=== PATIENT | male | born 1980 | race Caucasian/White ===

== ENCOUNTER → 2021-07-02 10:08 | Outpatient (CLI) | payer BC, SELFPAY | PROVIDERS: PCP Family Medicine; Referring Provider Family Medicine; Visit Provider Family Medicine | DX: U07.1 COVID-19 (principal) | CPT/HCPCS: 87635; C9803; U0005; U0003 ==

== ENCOUNTER 2021-07-09 18:01 | Inpatient (IN) | payer BC, SELFPAY ==
[2021-07-09] VITALS (12 sets, daily range): BP systolic 119–162; BP diastolic 73–80; PULSE 81–94; RESP 12–38; TEMP 36.6–38.2; O2SAT 86–96; BMI 32.3; BMI 31.1
--- NOTE | 2021-07-09 18:17 | EKG12_ITS ---
Test Reason : SOB Blood Pressure : / mmHG Vent. Rate : 092 BPM Atrial Rate : 092 BPM P-R Int : 160 ms QRS Dur : 086 ms QT Int : 350 ms P-R-T Axes : 030 -24 026 degrees QTc Int : 432 ms Normal sinus rhythm Leftward axis Poor R wave progression Septal PR, age undetermined, cannot be excluded Confirmed by DRISS ALVARES, KARL ([id number]), editorial cartoonist MEGAN CISSE ([id number]) on 07/13/2021 11:50:19 AM Referred By: CONSTANTINO Confirmed By:KARL NAQVI MD
--- NOTE | 2021-07-09 18:25 | RAD_ITS ---
INDICATION: cough EXAMINATION/TECHNIQUE: X-RAY - XR Chest 1 View COMPARISON: None. FINDINGS: LINES/DEVICES: None. LUNGS: Moderately dense, partially complex fluid, patchy airspace opacities seen in the right, greater than left bilateral lungs with slight sparing of the lung apices. No associated abnormal interstitial pattern, pleural effusion or hilar lymphadenopathy. No pneumothorax. MEDIASTINUM AND CARDIOVASCULAR STRUCTURES: Cardiac silhouette not enlarged. Central airways and mediastinal contour are unremarkable. BONES AND SOFT TISSUES: Unremarkable. RAD/Chest 1 View (Portable) IMPRESSION: Bilateral patchy, somewhat confluent, moderately dense airspace disease, right greater than left as could be seen with Covid pneumonia. Electronically Signed: Aleks Evans DO at 19:55 EDT Tel , Service support ,
--- NOTE | 2021-07-09 18:25 | NURSING ---
NO OLD EKGS
[2021-07-09 18:30] LABS: Absolute Lymphocyte Count 0.73 X10^3/uL (0.83-4.51); Absolute Neutrophil Count 8.9 X10^3/uL (2.0-7.7); Basophil# 0.03 X10^3/uL; Basophil% 0.3 % (0-1); Hematocrit 33.4 % (40-54); Hemoglobin 11.3 g/dL (13.0-16.5); Lymphocyte # 0.73 X10^3/ul (0.83-4.51); Mean Corp Hgb Conc 33.8 g/dL (32-36); Mean Corpuscular Hgb 29.3 pg (27.0-32.0); Mean Corpuscular Volume 86.5 fL (80-94); Mean Platelet Vol. 10.7 fl (6.2-12.0); Monocyte# 0.59 X10^3/uL; Monocyte% 5.6 % (0-10); NRBC Flagged by Analyzer 0 % (0-5); Neutrophil # 8.88 X10^3/uL (2.7-7.7); Platelet Count 211 K/mm3 (150-450); RBC Distribution Width CV 12.2 % (11.6-14.6); RBC Distribution Width SD 39.1 fl (35.1-43.9); Red Blood Count 3.86 M/mm3 (4.6-6.2); White Blood Count 10.5 K/mm3 (4.4-11.0)
[2021-07-09 18:45] LABS: D-Dimer Quantitative (DVT/PE) 2.94 FEU/ug/m (0.27-0.49)
--- NOTE | 2021-07-09 18:49 | CT_ITS ---
We are attempting to reach an attending provider to discuss findings. An addendum with communication details will be sent when the communication is complete. STUDY: CTA CHEST REASON FOR EXAM: Male, 40 years old. PE RADIATION DOSAGE (If Supplied By Facility): CTDIvol = ( 12.595 ) mGy, DLP = ( 528.16 ) mGycm TECHNIQUE: The examination was performed with the intravenous administration of IV 100mL Isovue-370. Post-processing of the angiographic images was performed, with multiplanar reformation and 3D reconstruction. Individualized dose optimization techniques were used for this CT. COMPARISON: Chest x-ray from 07/09/2021. FINDINGS: Suboptimal density of contrast in the pulmonary arteries measuring [address] [place] as well as motion artifact precludes confident assessment of the distal segmental pulmonary arteries. This significantly increases the likelihood of a false positive exam. There are areas and some of the upper lobe segmental branches suspicious for emboli. There is no right heart strain with normal right to left ventricle ratio less than 1. Normal thoracic aorta and visualized great vessels. There is no demonstrated aortic dissection. Normal heart and pericardium. Prominent mediastinal lymph nodes involving the aortopulmonary window as well as paratracheal lymph nodes measuring up to 1 cm in short axis. No appreciable hilar lymphadenopathy. Normal visualized trachea and bronchi. Moderately confluent patchy airspace disease seen throughout the lungs with a peripheral and central distribution. Normal interstitial pattern. . No associated pleural effusion. No pneumothorax. Normal osseous structures. Normal visualized upper abdomen. CT/CTA Chest W/WO Contrast IMPRESSION: Very limited exam, significantly increasing possibility of false positive exam showing some areas, especially in the right left upper lobes, suspicious for emboli. No associated evidence of right heart strain. Confluent, patchy, moderately dense airspace disease compatible with Covid pneumonia. Numerous, prominent mediastinal lymph nodes without suspicious confluence of lymph nodes or mass lesion. Electronically Signed: Aleks Evans DO at 20:42 EDT Tel , Service support ,
[2021-07-09 18:54] LABS: Procalcitonin 2.06 ng/mL (0.00-0.09)
--- NOTE | 2021-07-09 18:57 | ED.VIS.DYS ---
HPI History of Present Illness Chief Complaint: Shortness of Breath Narrative Narrative: Patient presenting secondary to complications of coronavirus. Patient is about 9 days into his coronavirus infection, states that his symptoms have been gotten precipitously worse. States that he checked his pulse ox at home and it was in the 60s, EMS was contacted patient was brought to the emergency department. Patient does have an underlying history of hypertension and type 2 diabetes he denies any lung history is a non-smoker. Does report that he has some modest chest pain associated with this. He also has had some nausea and vomiting. Review of systems otherwise negative. [facility] Medical History (Updated 07/09/21 @ 21:[address] Aleks Watson MD) Diabetes Fusion of lumbar spine Hypertension Obesity Home Medications albuterol sulfate 1 - 2 puff INHALATION Q4H 07/09/21 [History Last Taken Unknown] dapagliflozin [Farxiga] 10 mg PO DAILY 07/09/21 [History Last Taken Unknown] insulin glargine [Lantus Solostar U-100 Insulin] 25 unit SUBCUT DAILY 07/09/21 [History Last Taken Unknown] lisinopril [Prinivil] 20 mg PO DAILY 07/09/21 [History Last Taken Unknown] metformin 850 mg PO TID 07/09/21 [History Last Taken Unknown] ondansetron HCl 4 mg PO Q8H PRN 07/09/21 [History Last Taken Unknown] pantoprazole 40 mg PO BID 07/09/21 [History Last Taken Unknown] Allergy/AdvReac Type Severity Reaction Status Date / Time No Known Allergies Allergy Verified 07/09/21 18:07 Family History (Updated 07/09/21 @ 19:[address] Brianna Edwards MD) Mother Diabetes Hypertension Father Diabetes Hypertension Surgical History (Updated 07/09/21 @ 19:[address] Brianna Edwards MD) S/P lumbar fusion Social History (Updated 07/09/21 @ 19:[address] Brianna Edwards MD) household members: spouse and family Smoking Status: Former smoker alcohol intake: never substance use type: does not use ROS ROS ED Constitutional Constitutional ED: Reports chills and fever(s) ENT ENT ED: Denies rhinorrhea Cardiovascular Cardiovascular: Reports chest pain Respiratory/Chest Respiratory/Chest: Reports dyspnea Gastrointestinal Gastrointestinal: Reports nausea and vomiting Genitourinary Genitourinary ED: Denies dysuria or hematuria Musculoskeletal Musculoskeletal: Denies back pain Integumentary Denies rash Neurologic Neurologic: Denies paresthesias or weakness Psychiatric Psychiatric: Denies depression Endocrine Endocrinology: Denies fatigue Allergic/Immunologic Allergic/Immunologic ED: Denies urticaria EXAM Physical Exam Const Vital Signs: 07/09/21 18:02 07/09/21 18:07 07/09/21 18:11 Temperature 100.7 F H 100.7 F H Temperature Source Temporal Temporal Pulse Rate 91 91 Respiratory Rate 24 H 24 H Respiratory Effort Short of Breath Labored Respiratory Depth Shallow Respiratory Pattern Tachypnea Blood Pressure 148/75 H 148/75 H Blood Pressure Mean 99 99 Pulse Ox 91 91 Oxygen Delivery Method Non-Rebreather Non-Rebreather Non-Rebreather Oxygen Flow Rate (L/min) 15 15 15 07/09/21 19:09 Temperature Temperature Source Pulse Rate 90 Respiratory Rate 38 H Respiratory Effort Respiratory Depth Respiratory Pattern Blood Pressure 156/73 H Blood Pressure Mean 100 Pulse Ox 95 Oxygen Delivery Method Non-Rebreather Oxygen Flow Rate (L/min) 15 Positive well nourished and well developed Constitutional Narrative: Patient is well-appearing, tachypneic, in mild respiratory discomfort General Appearance ED: well developed and NAD HEENT Reports moist mucous membranes Negative for trauma or tenderness Eyes EOMs intact bilaterally Neck no lymphadenopathy, supple and no JVD Chest Wall inspection of chest normal Resp clear to auscultation bilaterally Resp Narrative: Tachypnea with clear lung sounds no retractions or accessory muscle use Cardio regular rate, regular rhythm, no murmurs and peripheral pulses 2+ throughout GI normal to inspection, nondistended, normoactive bowel sounds, non-tender and no masses Palpation: soft Back/Spine normal to inspection Extremity normal to inspection General Extremety ED: Negative for tenderness Neuro oriented x3 and no sensory deficits noted Sensorium / Orientation: alert Motor Exam: strength 5/5 throughout Psych mental status grossly normal Skin no rashes or lesions noted MDM MDM MDM Narrative Medical decision making narrative: Patient presented secondary to complications of coronavirus. He was on a nonrebreather on arrival, he was placed on high flow nasal cannula. Work-up was obtained, patient was given Decadron in the emergency department. Patient was noted to have a neutrophilic predominance as well as an elevated procalcitonin. D-dimer was unfortunately found to be elevated, CT angiogram of the chest was ordered. Patient was also noted to have a anion gap acidosis as well as hyperglycemia added on a serum acetone on the patient. CT angiogram of the chest on my personal review does not show a large pulmonary emboli, but shows very severe bilateral lung disease consistent with patient's coronavirus. Patient will be admitted under the hospitalist. CT angiogram did demonstrate pulmonary emboli patient was given a dose of Lovenox. Lab Data Labs: Laboratory Results - last 24 hr 07/09/21 07/09/21 07/09/21 18:10 18:10 18:10 WBC 10.5 RBC 3.86 L Hgb 11.3 L Hct 33.4 L MCV 86.5 MCH 29.3 MCHC 33.8 RDW Std Deviation 39.1 RDW Coeff of Preet 12.2 Plt Count 211 MPV 10.7 Immature Gran % (Auto) 2.100 H Neut % (Auto) 85.0 H Lymph % (Auto) 7.0 L [place] % (Auto) 5.6 Eos % (Auto) 0.0 Baso % (Auto) 0.3 Absolute Neuts (auto) 8.9 H Absolute Lymphs (auto) 0.73 L Nucleated RBC % 0 D-Dimer Quant (PE/DVT) 2.94 H* Sodium 126 L Potassium 4.6 Chloride 92 L Carbon Dioxide 15.0 L Anion Gap 19 H BUN 34 H Creatinine 1.47 H Estim Creat Clear Calc 73.32 Est GFR (MDRD) Af Amer 68 Est GFR (MDRD) Non-Af 56 L BUN/Creatinine Ratio 23.1 H Glucose 395 H Lactic Acid Calcium 7.7 L Phosphorus Total Bilirubin 0.40 AST 35 ALT 32 Alkaline Phosphatase 67 Troponin I High Sens 60 C-React Prot Ext Range 206.00 H B-Natriuretic Peptide Total Protein 6.4 Albumin 2.0 L Globulin 4.4 H Albumin/Globulin Ratio 0.5 L Procalcitonin 07/09/21 07/09/21 07/09/21 18:10 18:10 18:10 WBC RBC Hgb Hct MCV MCH MCHC RDW Std Deviation RDW Coeff of Preet Plt Count MPV Immature Gran % (Auto) Neut % (Auto) Lymph % (Auto) [place] % (Auto) Eos % (Auto) Baso % (Auto) Absolute Neuts (auto) Absolute Lymphs (auto) Nucleated RBC % D-Dimer Quant (PE/DVT) Sodium Potassium Chloride Carbon Dioxide Anion Gap BUN Creatinine Estim Creat Clear Calc Est GFR (MDRD) Af Amer Est GFR (MDRD) Non-Af BUN/Creatinine Ratio Glucose Lactic Acid 2.3 H* Calcium Phosphorus Total Bilirubin AST ALT Alkaline Phosphatase Troponin I High Sens C-React Prot Ext Range B-Natriuretic Peptide 213.4 H Total Protein Albumin Globulin Albumin/Globulin Ratio Procalcitonin 2.06 H 07/09/21 18:10 WBC RBC Hgb Hct MCV MCH MCHC RDW Std Deviation RDW Coeff of Preet Plt Count MPV Immature Gran % (Auto) Neut % (Auto) Lymph % (Auto) [place] % (Auto) Eos % (Auto) Baso % (Auto) Absolute Neuts (auto) Absolute Lymphs (auto) Nucleated RBC % D-Dimer Quant (PE/DVT) Sodium Potassium Chloride Carbon Dioxide Anion Gap BUN Creatinine Estim Creat Clear Calc Est GFR (MDRD) Af Amer Est GFR (MDRD) Non-Af BUN/Creatinine Ratio Glucose Lactic Acid Calcium Phosphorus 3.7 Total Bilirubin AST ALT Alkaline Phosphatase Troponin I High Sens C-React Prot Ext Range B-Natriuretic Peptide Total Protein Albumin Globulin Albumin/Globulin Ratio Procalcitonin Radiography Chest X-Ray - ED: 1 View, Right Infiltrate and Left Infiltrate Diagnostic Testing: Radiology Impression Chest X-Ray 07/09/21 18:25 IMPRESSION: Bilateral patchy, somewhat confluent, moderately dense airspace disease, right greater than left as could be seen with Covid pneumonia. Electronically Signed: Aleks Evans DO at 19:55 EDT Tel , Service support , Chest CTA 07/09/21 18:49 IMPRESSION: Very limited exam, significantly increasing possibility of false positive exam showing some areas, especially in the right left upper lobes, suspicious for emboli. No associated evidence of right heart strain. Confluent, patchy, moderately dense airspace disease compatible with Covid pneumonia. Numerous, prominent mediastinal lymph nodes without suspicious confluence of lymph nodes or mass lesion. Electronically Signed: Aleks Evans DO at 20:42 EDT Tel , Service support , ADDENDUM: 07/09/212053 IMPRESSION: Very limited exam, significantly increasing possibility of false positive exam showing some areas, especially in the right left upper lobes, suspicious for emboli. No associated evidence of right heart strain. Confluent, patchy, moderately dense airspace disease compatible with Covid pneumonia. Numerous, prominent mediastinal lymph nodes without suspicious confluence of lymph nodes or mass lesion. N.B. : The above Results were Read Back by Aleks Evans DO to Dr. Aleks Watson MD, and understanding confirmed on 07/09/2021 20:47:15 (ET). Electronically Signed: Aleks Evans DO at 20:42 EDT Tel , Service support , Critical Care Time Critical care time (excluding procedures): 30-74 minutes (51), Including time spent:, Discussing w/Patient &/or Family/Preparation Supervisor [place], Discussing w/Consultants, Arranging Admission or Transfer and Performing Direct Patient Care at Bedside Discharge Plan Dx/Rx/DC Orders Clinical Impression: COVID-19, Respiratory failure, Pulmonary emboli Disposition Disposition: Acute Care Hospital [facility] Discharge Date/Time: 07/09/21 21:15
[2021-07-09] MEDS: dexAMETHasone 4 MG/ML Vial 6 MG IV (19:07)
[2021-07-09 19:16] LABS: ALB/GLOB Ratio 0.5 RATIO (0.9-2.4); AST(SGOT) 35 U/L (15-37); Alanine Aminotransfer ALT/SGPT 32 U/L (16-61); Alkaline Phosphatase 67 U/L (45-117); Anion Gap 19 (5-15); BUN 34 mg/dL (7-18); BUN/Creat Ratio 23.1 RATIO (10-20); Calcium,Total 7.7 mg/dL (8.5-10.1); Chloride 92 mmol/L (98-107); Creatinine, Serum 1.47 mg/dL (0.70-1.30); EST Glomerular Filtration Rate 56 mL/min (>60); Est Glom Filt Rate - Afr Amer 68 mL/min (>60); Estimated Creatinine Clearance 73.32 ml/min; Globulin 4.4 g/dL (2.2-4.2); Glucose 395 mg/dL (74-106); Potassium 4.6 mmol/L (3.5-5.1); Protein, Total 6.4 g/dL (6.4-8.2); Sodium Level 126 mmol/L (136-145); Troponin-I HS 60 pg/mL (3.0-78.0)
[2021-07-09 19:17] LABS: Lactic Acid 2.3 mmol/L (0.4-1.9)
--- NOTE | 2021-07-09 19:23 | PCM.HP.STD ---
HPI - General General Date of Admission: 07/09/21 Date of Service: 07/09/21 Chief Complaint: Dyspnea, cough, worsening with hypoxia HPI Narrative The patient is a 40 y/o F w/ PMHx: Obesity, HTN, Diabetes mellitus type II who presents to the [facility] ED on 07/09/21 with history of onset Covid type symptoms approximately 9-day prior including fever, chills, headache, dry throat but not specifically sore, nausea, emesis, diarrhea, cramping abdominal discomfort, cough and dyspnea, alteration to sense of taste and smell with initial Covid testing at [facility] lab on 07/02/2021 noted to be positive with continued worsening status especially over the last 24 to 48 hours with home oxygenation assessment noted to be 60% prompting ED evaluation. His and his children are all sick as well and this was discussed at length and concerning symptoms and signs were relayed to the patient and if these were present his family was encouraged also to seek medical evaluation immediately. Upon presentation patient was in evident respiratory distress per discussion with ED staff and physician. Work-up in the ED included T 100.7, heart rate 91, BP 140/75, respiratory rate of 24-38, initially 91% on a nonrebreather 15 L, CBC with WC 10.5, hemoglobin 11.3, platelet 211 with increased immature granulocytes with left shift and lymphopenia, D-dimer 2.94, CMP with sodium 126, chloride 92, carbon oxide 15, anion gap 19, BUN/creatinine 37/1.47, glucose 395, lactic acid 2.3, high-sensitivity troponin 60, CRP 206, procalcitonin 2.06, pending acetone level, chest x-ray with significant bilateral peripheral infiltrates with final read pending, CTPA on preliminary evaluation with no obvious pulmonary embolism however significant bilateral peripheral infiltrates diffuse with final read pending. In the ED patient administered IV Decadron. Discussed patient current labs with ED physician and acetone as noted will be added and pending as patient could be in DKA in addition. FORMERLY [facility], [facility]–1983 Medical History (Updated 07/09/21 @ 19:[address] Brianna Edwards MD) Diabetes Fusion of lumbar spine Hypertension Obesity Home Medications albuterol sulfate 1 - 2 puff INHALATION Q4H 07/09/21 [History Last Taken Unknown] dapagliflozin [Farxiga] 10 mg PO DAILY 07/09/21 [History Last Taken Unknown] insulin glargine [Lantus Solostar U-100 Insulin] 25 unit SUBCUT DAILY 07/09/21 [History Last Taken Unknown] lisinopril [Prinivil] 20 mg PO DAILY 07/09/21 [History Last Taken Unknown] metformin 850 mg PO TID 07/09/21 [History Last Taken Unknown] ondansetron HCl 4 mg PO Q8H PRN 07/09/21 [History Last Taken Unknown] pantoprazole 40 mg PO BID 07/09/21 [History Last Taken Unknown] Allergy/AdvReac Type Severity Reaction Status Date / Time No Known Allergies Allergy Verified 07/09/21 18:07 Family History (Updated 07/09/21 @ 19:[address] Brianna Edwards MD) Mother Diabetes Hypertension Father Diabetes Hypertension Surgical History (Updated 07/09/21 @ 19:[address] Brianna Edwards MD) S/P lumbar fusion Social History (Updated 07/09/21 @ 19:[address] Brianna Edwards MD) household members: spouse and family Smoking Status: Former smoker alcohol intake: never substance use type: does not use ROS ROS Narrative Admission Review of Systems: CONSTITUTIONAL: No weight loss, + fever, chills, weakness or fatigue. HEENT: + ANGULO, dry throat. Eyes: No visual loss, blurred vision, double vision or yellow sclerae. Ears, Nose, Throat: No hearing loss, sneezing. SKIN: No rash or itching, lesions, wounds. CARDIOVASCULAR: No chest pain, chest pressure or chest discomfort, palpitations, edema, orthopnea, syncopal events. RESPIRATORY: + shortness of breath, cough, No marked sputum, wheezing, hemoptysis. GASTROINTESTINAL: + anorexia, nausea, vomiting, diarrhea, abdominal pain, No melena, BRBPR. GENITOURINARY: No dysuria, frequency, urgency or retention. NEUROLOGICAL: + headache, No dizziness, syncope, paralysis, ataxia, numbness or tingling in the extremities, focal weakness, change in bowel or bladder control, seizure. MUSCULOSKELETAL: + muscle, back pain, joint pain or stiffness. HEMATOLOGIC: No anemia, bleeding or bruising. LYMPHATICS: No enlarged nodes. No history of splenectomy. PSYCHIATRIC: No history of depression or anxiety. ENDOCRINOLOGIC: No reports of sweating, cold or heat intolerance. No polyuria or polydipsia. ALLERGIES: No history of asthma, hives, eczema or rhinitis. Vital Signs Vital Signs Vital Signs: 07/09/21 18:02 07/09/21 18:07 07/09/21 18:11 Temperature 100.7 F H 100.7 F H Temperature Source Temporal Temporal Pulse Rate 91 91 Respiratory Rate 24 H 24 H Respiratory Effort Short of Breath Labored Respiratory Depth Shallow Respiratory Pattern Tachypnea Blood Pressure 148/75 H 148/75 H Blood Pressure Mean 99 99 Pulse Ox 91 91 Oxygen Delivery Method Non-Rebreather Non-Rebreather Non-Rebreather Oxygen Flow Rate (L/min) 15 15 15 07/09/21 19:09 Temperature Temperature Source Pulse Rate 90 Respiratory Rate 38 H Respiratory Effort Respiratory Depth Respiratory Pattern Blood Pressure 156/73 H Blood Pressure Mean 100 Pulse Ox 95 Oxygen Delivery Method Non-Rebreather Oxygen Flow Rate (L/min) 15 Weight Weight: 238 lb 5.115 oz Body Mass Index (BMI) 32.3 Physical Exam Narrative Physical Examination: General: Awake, alert, oriented x 3 and cooperative, seated upright in the ED bed, evident respiratory distress, ill-appearing. Skin: Normal color, normal turgor, no icterus, no cyanosis. HEENT: AT/NC, EOMI, PERRLA, dry MM, no carotid bruits or JVD noted. Lungs: Diffusely diminished, decreased effort secondary to coughing and discomfort with increased deep breath, increased respiratory rate and accessory muscle usage, evident respiratory distress, no rales, ronchi or wheezing. Heart: Tachycardic with regular rhythm; no gallop, rub audible. Abdomen: Soft, obese, NTTP, ND, distant mildly hyperactive BS, no obvious evidence of HSM. Extremities: No cyanosis, clubbing, or edema. Neurological: Patient awake, alert, oriented as noted, cognitive function intact; pupils equally reactive to light and accommodation, cranial nerves II-XII grossly normal, moving all 4 extremities, no focal deficits, strength severely global decrease secondary to acute presentation. Psychiatric: Affect appears fatigued, ill-appearing, evident respiratory distress as noted, no acute evidence of depressive or anxiety feelings. Results Lab / Micro Data Result Diagrams: 07/09/21 18:10 07/09/21 18:10 Labs: Laboratory Results - last 24 hr 07/09/21 18:10: WBC 10.5, RBC 3.86 L, Hgb 11.3 L, Hct 33.4 L, MCV 86.5, MCH 29.3, MCHC 33.8, RDW Std Deviation 39.1, RDW Coeff of Preet 12.2, Plt Count 211, MPV 10.7, Immature Gran % (Auto) 2.100 H, Neut % (Auto) 85.0 H, Lymph % (Auto) 7.0 L, Mclennan % (Auto) 5.6, Eos % (Auto) 0.0, Baso % (Auto) 0.3, Absolute Neuts (auto) 8.9 H, Absolute Lymphs (auto) 0.73 L, Nucleated RBC % 0 07/09/21 18:10: D-Dimer Quant (PE/DVT) 2.94 H* 07/09/21 18:10: Sodium 126 L, Potassium 4.6, Chloride 92 L, Carbon Dioxide 15.0 L, Anion Gap 19 H, BUN 34 H, Creatinine 1.47 H, Estim Creat Clear Calc 73.32, Est GFR (MDRD) Af Amer 68, Est GFR (MDRD) Non-Af 56 L, BUN/Creatinine Ratio 23.1 H, Glucose 395 H, Calcium 7.7 L, Total Bilirubin 0.40, AST 35, ALT 32, Alkaline Phosphatase 67, Troponin I High Sens 60, C-React Prot Ext Range 206.00 H, Total Protein 6.4, Albumin 2.0 L, Globulin 4.4 H, Albumin/Globulin Ratio 0.5 L 07/09/21 18:10: Lactic Acid 2.3 H* 07/09/21 18:10: Procalcitonin 2.06 H Assessment & Plan Assessment/Plan (1) Respiratory failure: QUALIFIERS: Chronicity: acute Respiratory failure complication: hypoxia Qualified Code(s): J96.01 - Acute respiratory failure with hypoxia (2) COVID-19: PLAN: The patient is a 40 y/o F w/ PMHx: Obesity, HTN, Diabetes mellitus type II who presents to the [facility] ED on 07/09/21 with history of onset Covid type symptoms approximately 9-day prior including fever, chills, headache, dry throat but not specifically sore, nausea, emesis, diarrhea, cramping abdominal discomfort, cough and dyspnea, alteration to sense of taste and smell with initial Covid testing at [facility] lab on 07/02/2021 noted to be positive with continued worsening status especially over the last 24 to 48 hours with home oxygenation assessment noted to be 60% prompting ED evaluation. 1. Acute Hypoxic Respiratory Failure secondary to Acute Bilateral Pneumonia secondary to Acute Viral Syndrome, COVID-19: Will admit to the ICU, maintain on Covid precautions, currently on 15 L with likely transition to air Vo and possibly BiPAP, given appearance of chest x-ray and CTPA do expect potential need for intubation in a short time line, junior copywriter consulted and updated on patient current status, PRN albuterol, HOB, IS parameters w/ pending sputum cultures, respiratory viral panel and urine antigens, D-dimer elevated with pending final read on CTPA, procalcitonin of note also obtained in the ED and significantly elevated therefore until final read and given severity of presentation will initiate IV vancomycin and Zosyn with MRSA screen with plan de-escalation if MRSA screen negative and will defer discontinuation to pulmonary/critical care given read is currently pending, will additionally obtain CRP, CPK, Ferritin, LDH, trop and BNP, continue supportive care including q 2 hour turning including prone given no prone bed availability and judicious hydration, closely monitor for worsening status for ARDS and multiorgan failure, will continue IV decadron x 10 doses, given presentation will also initiate IV remdesivir but defer to discretion of Infectious disease. 2. Diabetes mellitus type II with Hyperglycemia, Noted elevated AG, awaiting acetone, no UA performed in the ED, Suspect DKA: Patient recently off his medications for at least 1 week, no oral intake and noted the hold secondary to significant drop with taking his insulin, discussed presentation with ED physician and acetone level has been requested and if notable will need to be initiated on insulin drip, transition to n.p.o. status with serial BMPs and increased hydration although judicious given #1. Hemoglobin A1c requested. Mag and Phos requested. 3. Acute hyponatremia: Suspect primarily associated #2 although also with #1 and altered with correction given the circumstances, judiciously hydrating, awaiting acetone is noted and suspect may be in DKA, will continue treatment as noted #1 and #2, trend serial labs. 4. Suspected Acute kidney injury: Secondary to acute presentation #1, #2, admission BUN/Cr 34/1.47, unclear baseline but given presentation do suspect acute injury, judiciously hydrating given presentation as noted above, trend labs as noted. 5. Lactic acidosis: Likely associated with #1 and #2 is noted, admission lactic acid 2.3, judiciously hydrating, trend per facility protocol. 6. Hypertension: We will hold patient lisinopril given renal function, resume once appropriate, PRN hydralazine. 7. Obesity: Weight loss and lifestyle changes encouraged. 8. GERD: We will continue patient on PPI. 9. DVT prophylaxis: SCDs, Lovenox. 10. CODE status: Patient does not have healthcare peritoneal living will, given acute presentation as noted above, discussed CODE status at length including difference between FULL code, DNR-CCA and DNR-CC status. Following discussions about the differences in these status, requested Full Code, amenable to Airvo and BIPAP also. Advanced Care Planning Face to Face Time: 16 minutes. Charges/Coding Visit Charges Inpatient E&M: 31440 Init Hosp L3 Procedures Hospitalists Procedures: 10646 Advncd Care Plan 30 Min
[2021-07-09 21:00] LABS: Phosphorus 3.7 mg/dL (2.5-4.9)
[2021-07-09] MEDS: Enoxaparin 120 MG/0.8 ML Syringe SC (21:12)
[2021-07-09 21:22] LABS: BNP,B-Type NATRIURETIC PEPTIDE 213.4 pg/mL (0-100)
[2021-07-09 21:37] LABS: Ferritin 1012 ng/mL (26-388); LDH 510 U/L (87-241); Magnesium 2.2 mg/dL (1.6-2.6); Troponin-I HS 71 pg/mL (3.0-78.0)
[2021-07-09 22:25] LABS: Reflex Lactate? Y
[2021-07-09] MEDS: Insulin Lispro 100 UNIT/ML INSULN.PEN SC (23:15)
[2021-07-09] MEDS: Pantoprazole Sodium 40 MG Tablet PO (23:15)
[2021-07-09] MEDS: 0.9% Normal Saline 1,000 ML 100 ML IV (23:15)
[2021-07-10] VITALS (31 sets, daily range): BP systolic 127–155; BP diastolic 71–87; PULSE 62–88; RESP 12–36; TEMP 36.1–36.8; O2SAT 84–98
[2021-07-10 00:11] LABS: Bedside Glucose 415 mg/dL (70-110)
[2021-07-10 00:11] LABS: M R Staph aureus DNA By PCR Negative (Negative); Probe Check PASS; Specimen Processing Control PASS
[2021-07-10 01:19] LABS: Mucous, Urine 0 SEEN /hpf (<or=2+); Squamous Epithelial Cells - UA 0 SEEN /hpf (0-5); White Blood Cells 0 SEEN /hpf (0-5)
[2021-07-10 01:21] LABS: Color, Urine Yellow (Yellow); Glucose, Dipstick 1000 mg/dl (Normal); Leukocyte Esterase-Dipstick Negative /ul (Negative); Nitrite-Dipstick Negative (Negative); Occult Blood-Urine 50 /ul (Negative); Protein-Dipstick 100 mg/dl (Negative); Specific Gravity, Urine 1.015 (1.002-1.030); Urine Bilirubin Dipstick Negative (Negative); Urine Clarity Clear (Clear); Urine Urobilinogen Normal (Normal)
[2021-07-10 01:22] LABS: Ketone-Dipstick 150 mg/dl (Negative)
[2021-07-10 01:51] LABS: Bacteria 1+ /hpf (None Seen); Red Blood Cells-Urine 0-5 SEEN /hpf (0-5)
--- NOTE | 2021-07-10 03:23 | PCM.RX.CS ---
Consult Pharmacy has been consulted to manage selected antiobiotic: Vancomycin Type of Consult: New start Suspected Infection: Pneumonia Labs: Sodium 126 mmol/L (136-145) L 07/09/21 18:10 Potassium 4.6 mmol/L (3.5-5.1) 07/09/21 18:10 Chloride 92 mmol/L (98-107) L 07/09/21 18:10 Carbon Dioxide 15.0 mmol/L (21.0-32.0) L 07/09/21 18:10 Anion Gap 19 (5-15) H 07/09/21 18:10 BUN 34 mg/dL (7-18) H 07/09/21 18:10 Creatinine 1.47 mg/dL (0.70-1.30) H 07/09/21 18:10 Est GFR (MDRD) Af Amer 68 mL/min (>60) 07/09/21 18:10 Est GFR (MDRD) Non-Af 56 mL/min (>60) L 07/09/21 18:10 BUN/Creatinine Ratio 23.1 RATIO (10-20) H 07/09/21 18:10 Glucose 395 mg/dL (74-106) H 07/09/21 18:10 Microbiology: Microbiology 07/09/21 21:50 Mucosa - Nose Respiratory Panel (PCR) - Final 07/09/21 19:47 Urine, Clean Catch Streptococcus pneumoniae Antigen (M - Final 07/09/21 19:47 Urine, Random Legionella Antigen - Final Weight used for dosin.1 kg Estimated Creatinine Clearance: 83.3 Goal Trough: 15-20 mcg/mL Pharmacy Plan for Drug Dosing: Pharmacy Service will continue to monitor and adjust dosing as required. Medications Vancomycin HCl 1,750 mg/ (Sodium Chloride) 535 mls @ 250 mls/hr IV Q12H SHANNAN Discontinued Medications Vancomycin HCl 2,000 mg/ (Sodium Chloride) 540 mls @ 250 mls/hr IV X1 ONE Stop: 07/10/21 00:09 Last Admin: 07/10/21 02:17 Dose: 250 mls/hr Documented by: Follow-Up Labs: Trough Vancomycin Labs to be done on [date and time ordered]: 07/11 @ 7212
[2021-07-10] MEDS: 0.9% Saline Lock 10 ML Syringe IV ×2 (04:25→10:44)
[2021-07-10 05:23] LABS: Absolute Lymphocyte Count 0.65 X10^3/uL (0.83-4.51); Absolute Neutrophil Count 9.4 X10^3/uL (2.0-7.7); Basophil# 0.03 X10^3/uL; Basophil% 0.3 % (0-1); Eosinophil# 0.13 X10^3/uL; Eosinophils% 1.2 % (0-5); Hematocrit 32.3 % (40-54); Hemoglobin 10.9 g/dL (13.0-16.5); Lymphocyte # 0.65 X10^3/ul (0.83-4.51); Lymphocyte % 5.8 % (19-41); Mean Corp Hgb Conc 33.7 g/dL (32-36); Mean Corpuscular Hgb 29.5 pg (27.0-32.0); Mean Corpuscular Volume 87.5 fL (80-94); Mean Platelet Vol. 11.2 fl (6.2-12.0); Monocyte# 0.49 X10^3/uL; Monocyte% 4.4 % (0-10); NRBC Flagged by Analyzer 0 % (0-5); Neutrophil # 9.39 X10^3/uL (2.7-7.7); Neutrophil % 84.1 % (47-70); Platelet Count 250 K/mm3 (150-450); RBC Distribution Width CV 12.3 % (11.6-14.6); RBC Distribution Width SD 39.5 fl (35.1-43.9); Red Blood Count 3.69 M/mm3 (4.6-6.2); White Blood Count 11.2 K/mm3 (4.4-11.0)
[2021-07-10 05:40] LABS: ALB/GLOB Ratio 0.4 RATIO (0.9-2.4); AST(SGOT) 31 U/L (15-37); Alanine Aminotransfer ALT/SGPT 31 U/L (16-61); Albumin, Serum 1.9 g/dL (3.2-5.0); Alkaline Phosphatase 64 U/L (45-117); Anion Gap 16 (5-15); BUN 38 mg/dL (7-18); BUN/Creat Ratio 24.8 RATIO (10-20); Chloride 95 mmol/L (98-107); Creatinine, Serum 1.53 mg/dL (0.70-1.30); EST Glomerular Filtration Rate 54 mL/min (>60); Est Glom Filt Rate - Afr Amer 65 mL/min (>60); Estimated Creatinine Clearance 70.44 ml/min; Globulin 4.4 g/dL (2.2-4.2); Glucose 446 mg/dL (74-106); Potassium 4.8 mmol/L (3.5-5.1); Protein, Total 6.3 g/dL (6.4-8.2); Sodium Level 128 mmol/L (136-145)
--- NOTE | 2021-07-10 07:11 | EX.PCM.CONCC ---
Assessment & Plan Assessment/Plan (1) COVID-19: (2) Respiratory failure: QUALIFIERS: Chronicity: acute Respiratory failure complication: hypoxia Qualified Code(s): J96.01 - Acute respiratory failure with hypoxia PLAN: RECOMMENDATIONS: 1. Continue BiPAP therapy and wean FiO2 to maintain oxygen saturations at or above 90%. 2. Continue remdesivir to complete 5-day treatment course. 3. Continue Decadron to complete 10-day treatment course. 4. Obtain infectious diseases consultation, re: KELY inhibitor therapy. 5. Additional fluid resuscitation. 6. Start insulin infusion with management per DKA protocol. 7. Increase Lovenox to therapeutic dose range. IMPRESSIONS: 1. Acute hypoxemic respiratory failure secondary to COVID-19 pneumonia The patient presented to the hospital with approximately 10 days of progressive Covid symptoms, having tested positive on the second. Plan to continue current supportive measures including noninvasive positive pressure ventilatory support. FiO2 will be weaned to maintain oxygen saturations at or above 90%. The patient will be continued on remdesivir as ordered. Liver and renal function will be monitored. The patient will complete a 10-day course of Decadron. Infectious diseases consultation has been placed, re: possible initiation of KELY inhibitor therapy. Given that the patient presented with an elevated D-dimer and suboptimal CTA chest, therapeutic Lovenox will be initiated and continued. Periodic use of IV Lasix can be utilized to maintain euvolemic state. 2. Diabetic ketoacidosis Continue supplemental IV fluid hydration. Initiate continuous insulin infusion until anion gap has been closed x2. 3. Acute kidney injury Most likely prerenal in etiology. Anticipate improvement with volume expansion. Continue to monitor urine output for now. No current indication for renal replacement therapy. 4. Obesity/hypertension/GERD Complicates care, management, recovery and prognosis. Continue home medications as indicated. TIME: 38 minutes of critical care time, independent of procedures, was spent addressing the patient's acute hypoxemic respiratory failure secondary to COVID-19 pneumonia, DKA, acute kidney injury, review of all data and collaboration with the care team. ([id number]) HPI Consult Data Date of Consult: 07/10/21 HPI Narrative Reason for Consultation: Acute hypoxemic respiratory failure secondary to COVID-19 pneumonia HPI Narrative: The patient is a 40-year-old male, with a history as outlined below, who presented to the emergency department on Stephanie 9 with complaints of fevers, chills, shortness of breath and hypoxemia. The patient's symptoms have been present since the beginning of July. Coronavirus PCR testing was performed on July 02 and found to be positive. The patient does report that his was recently ill and diagnosed with coronavirus. His children have also been ill as well. On presentation to the emergency department, the patient was noted to be afebrile and hemodynamically stable. He was, nevertheless, notably tachypneic and hypoxemic. Initial laboratory evaluation revealed normocytic anemia without leukocytosis. Coagulation profile revealed an elevated D-dimer to 2.94. Chemistry profile was notable for a sodium of 126, chloride of 92, bicarbonate of 15, anion gap of 19 and creatinine of 1.47. Glucose was elevated at 395. Lactate was elevated to 2.3. Liver function was within normal limits. Procalcitonin was noted to be 2.06. Urine analysis was negative for nitrites and leukocyte esterase. Small serum acetone level was noted. CTA chest was suboptimal for the evaluation of pulmonary emboli. Bilateral airspace disease was noted. The patient was placed on supplemental IV fluid hydration, remdesivir, empiric antimicrobials, Decadron and Lovenox. The patient was ultimately started on BiPAP and admitted to the medical intensive care unit for further management. [facility] Medical History Diabetes Fusion of lumbar spine Hypertension Obesity Home Medications albuterol sulfate 1 - 2 puff INHALATION Q4H 07/09/21 [History Last Taken Unknown] dapagliflozin [Farxiga] 10 mg PO DAILY 07/09/21 [History Last Taken Unknown] insulin glargine [Lantus Solostar U-100 Insulin] 25 unit SUBCUT DAILY 07/09/21 [History Last Taken Unknown] lisinopril [Prinivil] 20 mg PO DAILY 07/09/21 [History Last Taken Unknown] metformin 850 mg PO TID 07/09/21 [History Last Taken Unknown] ondansetron HCl 4 mg PO Q8H PRN 07/09/21 [History Last Taken Unknown] pantoprazole 40 mg PO BID 07/09/21 [History Last Taken Unknown] Allergy/AdvReac Type Severity Reaction Status Date / Time No Known Allergies Allergy Verified 07/09/21 18:07 Family History (Updated 07/09/21 @ 19:[address] Brianna Edwards MD) Mother Diabetes Hypertension Father Diabetes Hypertension Surgical History S/P lumbar fusion Social History (Updated 07/09/21 @ 19:[address] Brianna Edwards MD) household members: spouse and family Smoking Status: Former smoker alcohol intake: never substance use type: does not use ROS Constitutional Constitutional: Reports fatigue and malaise Eyes Eyes: Denies blurry vision or change in vision ENT HEENT: Reports headache(s); Denies dysphagia, loss taste/smell or nasal congestion Cardiovascular Cardiovascular: Reports dyspnea; Denies chest pain Respiratory/Chest Respiratory/Chest: Reports cough and dyspnea; Denies chest tightness Gastrointestinal Gastrointestinal: Denies abdominal pain, diarrhea, nausea or vomiting Genitourinary Genitourinary: Denies difficulty urinating Musculoskeletal Musculoskeletal: Denies arthralgias, back pain or joint pain Integumentary Integumentary: Denies lesions, rash or skin ulcer Neurologic Neurologic: Denies abnormal gait or abnormal speech Psychiatric Psychiatric: Denies anxiety, depression or hallucinations Endocrine Endocrinology: Reports fatigue Hematologic/Lymphatic Hematologic/Lymphatic: Denies easy bleeding or easy bruising Physical Exam Const alert General Appearance: cooperative, ill appearing and on BiPAP Nutritional Appearance: obese HEENT normocephalic and head/scalp atraumatic Eyes PERRL and EOMs intact bilaterally Neck supple General: trachea midline Resp Effort and Inspection: tachypneic; Negative for uses accessory muscles Auscultation: diminished lung sounds; Negative for rales, rhonchi or wheezes Cardio S1 normal heart sound and S2 normal heart sound Rate: tachycardic GI normal to inspection, nondistended, normoactive bowel sounds Extremity no clubbing, cyanosis or edema Skin no rashes or lesions noted Neuro moves all extremities and no focal motor deficits Psych cooperative and affect normal Lab / Micro Data Result Diagrams: 07/10/21 05:10 07/10/21 05:10 Labs: Laboratory Results - last 24 hr 07/09/21 18:10: WBC 10.5, RBC 3.86 L, Hgb 11.3 L, Hct 33.4 L, MCV 86.5, MCH 29.3, MCHC 33.8, RDW Std Deviation 39.1, RDW Coeff of Preet 12.2, Plt Count 211, MPV 10.7, Immature Gran % (Auto) 2.100 H, Neut % (Auto) 85.0 H, Lymph % (Auto) 7.0 L, [place] % (Auto) 5.6, Eos % (Auto) 0.0, Baso % (Auto) 0.3, Absolute Neuts (auto) 8.9 H, Absolute Lymphs (auto) 0.73 L, Nucleated RBC % 0 07/09/21 18:10: D-Dimer Quant (PE/DVT) 2.94 H* 07/09/21 18:10: Sodium 126 L, Potassium 4.6, Chloride 92 L, Carbon Dioxide 15.0 L, Anion Gap 19 H, BUN 34 H, Creatinine 1.47 H, Estim Creat Clear Calc 73.32, Est GFR (MDRD) Af Amer 68, Est GFR (MDRD) Non-Af 56 L, BUN/Creatinine Ratio 23.1 H, Glucose 395 H, Calcium 7.7 L, Total Bilirubin 0.40, AST 35, ALT 32, Alkaline Phosphatase 67, Troponin I High Sens 60, C-React Prot Ext Range 206.00 H, Total Protein 6.4, Albumin 2.0 L, Globulin 4.4 H, Albumin/Globulin Ratio 0.5 L 07/09/21 18:10: Lactic Acid 2.3 H* 07/09/21 18:10: Procalcitonin 2.06 H 07/09/21 18:10: B-Natriuretic Peptide 213.4 H 07/09/21 18:10: Acetone Level SMALL H 07/09/21 18:10: Phosphorus 3.7 07/09/21 20:55: Magnesium 2.2, Ferritin 1012 H, Lactate Dehydrogenase 510 H, Troponin I High Sens 71, C-React Prot Ext Range 211.00 H 07/09/21 21:50: MRSA (PCR) Negative 07/09/21 22:52: POC Glucose 415 H 07/09/21 23:05: Lactic Acid 1.0 07/10/21 01:10: Urine Color Yellow, Urine Clarity Clear, Urine pH 5.0, Ur Specific [place] 1.015, Urine Protein 100 H, Urine Glucose (UA) 1000 H, Urine Ketones 150 A*, Urine Occult Blood 50 H, Urine Nitrite Negative, Urine Bilirubin Negative, Urine Urobilinogen Normal, Ur Leukocyte Esterase Negative, Urine RBC 0-5 SEEN, Urine WBC 0 SEEN, Ur Squamous Epith Cells 0 SEEN, Urine Bacteria 1+, Urine Mucus 0 SEEN 07/10/21 05:10: WBC 11.2 H, RBC 3.69 L, Hgb 10.9 L, Hct 32.3 L, MCV 87.5, MCH 29.5, MCHC 33.7, RDW Std Deviation 39.5, RDW Coeff of Preet 12.3, Plt Count 250, MPV 11.2, Immature Gran % (Auto) 4.200 H, Neut % (Auto) 84.1 H, Lymph % (Auto) 5.8 L, [place] % (Auto) 4.4, Eos % (Auto) 1.2, Baso % (Auto) 0.3, Absolute Neuts (auto) 9.4 H, Absolute Lymphs (auto) 0.65 L, Nucleated RBC % 0 07/10/21 05:10: Sodium 128 L, Potassium 4.8, Chloride 95 L, Carbon Dioxide 17.0 L, Anion Gap 16 H, BUN 38 H, Creatinine 1.53 H, Estim Creat Clear Calc 70.44, Est GFR (MDRD) Af Amer 65, Est GFR (MDRD) Non-Af 54 L, BUN/Creatinine Ratio 24.8 H, Glucose 446 H, Calcium 8.0 L, Total Bilirubin 0.40, AST 31, ALT 31, Alkaline Phosphatase 64, Total Protein 6.3 L, Albumin 1.9 L, Globulin 4.4 H, Albumin/Globulin Ratio 0.4 L Micro: Microbiology 07/09/21 21:50 Mucosa - Nose Respiratory Panel (PCR) - Final 07/09/21 19:47 Urine, Clean Catch Streptococcus pneumoniae Antigen (M - Final 07/09/21 19:47 Urine, Random Legionella Antigen - Final Radiology Impression Chest X-Ray 07/09/21 18:25 IMPRESSION: Bilateral patchy, somewhat confluent, moderately dense airspace disease, right greater than left as could be seen with Covid pneumonia. Electronically Signed: lAeks Evans DO at 19:55 EDT Tel , Service support , Chest CTA 07/09/21 18:49 IMPRESSION: Very limited exam, significantly increasing possibility of false positive exam showing some areas, especially in the right left upper lobes, suspicious for emboli. No associated evidence of right heart strain. Confluent, patchy, moderately dense airspace disease compatible with Covid pneumonia. Numerous, prominent mediastinal lymph nodes without suspicious confluence of lymph nodes or mass lesion. Electronically Signed: Aleks Evans DO at 20:42 EDT Tel , Service support , ADDENDUM: 07/09/212053 IMPRESSION: Very limited exam, significantly increasing possibility of false positive exam showing some areas, especially in the right left upper lobes, suspicious for emboli. No associated evidence of right heart strain. Confluent, patchy, moderately dense airspace disease compatible with Covid pneumonia. Numerous, prominent mediastinal lymph nodes without suspicious confluence of lymph nodes or mass lesion. N.B. : The above Results were Read Back by Aleks Evans DO to Dr. Aleks Watson MD, and understanding confirmed on 07/09/2021 20:47:15 (ET). Electronically Signed: Aleks Evans DO at 20:42 EDT Tel , Service support , Charges/Coding Procedures Hospitalists Procedures: [id number] [facility] [place] [facility] Hr
[2021-07-10 07:32] LABS: Hemoglobin A1c 9.7 % (3.8-5.6)
[2021-07-10 09:00] LABS: Bedside Glucose 476 mg/dL (70-110)
[2021-07-10 09:52] LABS: Bedside Glucose 435 mg/dL (70-110)
[2021-07-10] MEDS: 0.9% Normal Saline 1,000 ML 999 ML IV (10:01)
[2021-07-10] MEDS: Enoxaparin 100 MG/ML Syringe SC ×2 (10:44→22:43)
[2021-07-10] MEDS: Pantoprazole Sodium 40 MG Tablet PO ×2 (10:44→22:43)
[2021-07-10] MEDS: dexAMETHasone 10 MG/ML Vial 6 MG IV (10:44)
[2021-07-10 10:55] LABS: Bedside Glucose 415 mg/dL (70-110)
[2021-07-10 12:57] LABS: Anion Gap 10 (5-15); BUN 45 mg/dL (7-18); BUN/Creat Ratio 25.7 RATIO (10-20); Calcium,Total 8.1 mg/dL (8.5-10.1); Chloride 101 mmol/L (98-107); Creatinine, Serum 1.75 mg/dL (0.70-1.30); EST Glomerular Filtration Rate 46 mL/min (>60); Est Glom Filt Rate - Afr Amer 56 mL/min (>60); Estimated Creatinine Clearance 61.59 ml/min; Glucose 366 mg/dL (74-106); Sodium Level 133 mmol/L (136-145)
[2021-07-10 13:26] LABS: Bedside Glucose 326 mg/dL (70-110)
--- NOTE | 2021-07-10 13:43 | CON.PCM.ID_ITS ---
Assessment & Plan Assessment/Plan (1) COVID-19: PLAN: Sx started 07/01. and 3 children also sick. All unvaccinated. On bipap. On dex, remdesivir, and given tocilizumab this Am. On empiric vanc/zosyn, cxs pending, UAg neg, PCT was 2. On therapeutic lovenox for PEs. Quarantine until 07/21. Recommend vaccine after discharge. Will follow, thank you, d/w Dr. Albrecht (2) Pulmonary emboli: (3) Respiratory failure: QUALIFIERS: Chronicity: acute Respiratory failure complication: hypoxia Qualified Code(s): J96.01 - Acute respiratory failure with hypoxia HPI Consult Data Date of Consult: 07/10/21 HPI Narrative HPI Narrative: DARREL PRATHER, is a 40 M who presented yesterday with sx starting 07/01 with progressive cough, dyspnea, fever, chills, diarrhea, aches, headache, change in taste and smell. and 3 children also sick. Family is unvaccina christian. Covid (+) 07/02. Came to ED, admitted to icu on therapeutic lovenox, vanc/zosyn. CT showed PEs, on airvo now. Feeling about the same. Full ROS performed and neg except as noted above. [facility] Medical History Diabetes Fusion of lumbar spine Hypertension Obesity Home Medications albuterol sulfate 1 - 2 puff INHALATION Q4H 07/09/21 [History Last Taken Unknown] dapagliflozin [Farxiga] 10 mg PO DAILY 07/09/21 [History Last Taken Unknown] insulin glargine [Lantus Solostar U-100 Insulin] 25 unit SUBCUT DAILY 07/09/21 [History Last Taken Unknown] lisinopril [Prinivil] 20 mg PO DAILY 07/09/21 [History Last Taken Unknown] metformin 850 mg PO TID 07/09/21 [History Last Taken Unknown] ondansetron HCl 4 mg PO Q8H PRN 07/09/21 [History Last Taken Unknown] pantoprazole 40 mg PO BID 07/09/21 [History Last Taken Unknown] Allergy/AdvReac Type Severity Reaction Status Date / Time No Known Allergies Allergy Verified 07/09/21 18:07 Family History (Updated 07/09/21 @ 19:[address] Brianna Edwards MD) Mother Diabetes Hypertension Father Diabetes Hypertension Surgical History S/P lumbar fusion Social History (Updated 07/09/21 @ 19:[address] Brianna Edwards MD) household members: spouse and family Smoking Status: Former smoker alcohol intake: never substance use type: does not use Physical Exam Const alert and oriented x3 Constitutional Narrative: ill appearing General Appearance: cooperative HEENT normocephalic and head/scalp atraumatic Eyes PERRL and EOMs intact bilaterally Neck supple and No nodes Resp Auscultation: diminished lung sounds Cardio regular rate and regular rhythm GI normal to inspection, nondistended, normoactive bowel sounds Extremity no clubbing, cyanosis or edema Skin no rashes or lesions noted Neuro CN's II-XII intact bilaterally Lab / Micro Data Result Diagrams: 07/10/21 05:10 07/10/21 12:35 Labs: Laboratory Results - last 24 hr 07/09/21 18:10: WBC 10.5, RBC 3.86 L, Hgb 11.3 L, Hct 33.4 L, MCV 86.5, MCH 29.3, MCHC 33.8, RDW Std Deviation 39.1, RDW Coeff of Preet 12.2, Plt Count 211, MPV 10.7, Immature Gran % (Auto) 2.100 H, Neut % (Auto) 85.0 H, Lymph % (Auto) 7.0 L, [place] % (Auto) 5.6, Eos % (Auto) 0.0, Baso % (Auto) 0.3, Absolute Neuts (auto) 8.9 H, Absolute Lymphs (auto) 0.73 L, Nucleated RBC % 0 07/09/21 18:10: D-Dimer Quant (PE/DVT) 2.94 H* 07/09/21 18:10: Sodium 126 L, Potassium 4.6, Chloride 92 L, Carbon Dioxide 15.0 L, Anion Gap 19 H, BUN 34 H, Creatinine 1.47 H, Estim Creat Clear Calc 73.32, Est GFR (MDRD) Af Amer 68, Est GFR (MDRD) Non-Af 56 L, BUN/Creatinine Ratio 23.1 H, Glucose 395 H, Calcium 7.7 L, Total Bilirubin 0.40, AST 35, ALT 32, Alkaline Phosphatase 67, Troponin I High Sens 60, C-React Prot Ext Range 206.00 H, Total Protein 6.4, Albumin 2.0 L, Globulin 4.4 H, Albumin/Globulin Ratio 0.5 L 07/09/21 18:10: Lactic Acid 2.3 H* 07/09/21 18:10: Procalcitonin 2.06 H 07/09/21 18:10: B-Natriuretic Peptide 213.4 H 07/09/21 18:10: Acetone Level SMALL H 07/09/21 18:10: Phosphorus 3.7 07/09/21 20:55: Magnesium 2.2, Ferritin 1012 H, Lactate Dehydrogenase 510 H, Troponin I High Sens 71, C-React Prot Ext Range 211.00 H 07/09/21 21:50: MRSA (PCR) Negative 07/09/21 22:52: POC Glucose 415 H 07/09/21 23:05: Blood Type A POSITIVE, Antibody Screen NEGATIVE 07/09/21 23:05: Lactic Acid 1.0 07/10/21 01:10: Urine Color Yellow, Urine Clarity Clear, Urine pH 5.0, Ur Specific [place] 1.015, Urine Protein 100 H, Urine Glucose (UA) 1000 H, Urine Ketones 150 A*, Urine Occult Blood 50 H, Urine Nitrite Negative, Urine Bilirubin Negative, Urine Urobilinogen Normal, Ur Leukocyte Esterase Negative, Urine RBC 0-5 SEEN, Urine WBC 0 SEEN, Ur Squamous Epith Cells 0 SEEN, Urine Bacteria 1+, Urine Mucus 0 SEEN 07/10/21 05:10: WBC 11.2 H, RBC 3.69 L, Hgb 10.9 L, Hct 32.3 L, MCV 87.5, MCH 29.5, MCHC 33.7, RDW Std Deviation 39.5, RDW Coeff of Preet 12.3, Plt Count 250, MPV 11.2, Immature Gran % (Auto) 4.200 H, Neut % (Auto) 84.1 H, Lymph % (Auto) 5.8 L, [place] % (Auto) 4.4, Eos % (Auto) 1.2, Baso % (Auto) 0.3, Absolute Neuts (auto) 9.4 H, Absolute Lymphs (auto) 0.65 L, Nucleated RBC % 0 07/10/21 05:10: Sodium 128 L, Potassium 4.8, Chloride 95 L, Carbon Dioxide 17.0 L, Anion Gap 16 H, BUN 38 H, Creatinine 1.53 H, Estim Creat Clear Calc 70.44, Est GFR (MDRD) Af Amer 65, Est GFR (MDRD) Non-Af 54 L, BUN/Creatinine Ratio 24.8 H, Glucose 446 H, Calcium 8.0 L, Total Bilirubin 0.40, AST 31, ALT 31, Alkaline Phosphatase 64, Total Protein 6.3 L, Albumin 1.9 L, Globulin 4.4 H, Albumin/Globulin Ratio 0.4 L 07/10/21 05:10: Hemoglobin A1c 9.7 H 07/10/21 08:30: POC Glucose 476 H* 07/10/21 09:37: POC Glucose 435 H 07/10/21 10:42: POC Glucose 415 H 07/10/21 12:34: POC Glucose 326 H 07/10/21 12:35: Sodium 133 L, Potassium 4.0, Chloride 101, Carbon Dioxide 22.0, Anion Gap 10, BUN 45 H, Creatinine 1.75 H, Estim Creat Clear Calc 61.59, Est GFR (MDRD) Af Amer 56 L, Est GFR (MDRD) Non-Af 46 L, BUN/Creatinine Ratio 25.7 H, Glucose 366 H, Calcium 8.1 L Micro: Microbiology 07/09/21 21:50 Mucosa - Nose Respiratory Panel (PCR) - Final 07/09/21 19:47 Urine, Clean Catch Streptococcus pneumoniae Antigen (M - Final 07/09/21 19:47 Urine, Random Legionella Antigen - Final Radiology Impression Chest X-Ray 07/09/21 18:25 IMPRESSION: Bilateral patchy, somewhat confluent, moderately dense airspace disease, right greater than left as could be seen with Covid pneumonia. Electronically Signed: Aleks Evans DO at 19:55 EDT Tel , Service support , Chest CTA 07/09/21 18:49 IMPRESSION: Very limited exam, significantly increasing possibility of false positive exam showing some areas, especially in the right left upper lobes, suspicious for emboli. No associated evidence of right heart strain. Confluent, patchy, moderately dense airspace disease compatible with Covid pneumonia. Numerous, prominent mediastinal lymph nodes without suspicious confluence of lymph nodes or mass lesion. Electronically Signed: Aleks Evans DO at 20:42 EDT Tel , Service support , ADDENDUM: 07/09/212053 IMPRESSION: Very limited exam, significantly increasing possibility of false positive exam showing some areas, especially in the right left upper lobes, suspicious for emboli. No associated evidence of right heart strain. Confluent, patchy, moderately dense airspace disease compatible with Covid pneumonia. Numerous, prominent mediastinal lymph nodes without suspicious confluence of lymph nodes or mass lesion. N.B. : The above Results were Read Back by Aleks Evans DO to Dr. Aleks Watson MD, and understanding confirmed on 07/09/2021 20:47:15 (ET). Electronically Signed: Aleks Evans DO at 20:42 EDT Tel , Service support ,
[2021-07-10 13:46] LABS: Bedside Glucose 312 mg/dL (70-110)
[2021-07-10 14:30] LABS: Bedside Glucose 289 mg/dL (70-110)
--- NOTE | 2021-07-10 14:55 | CASEMGMT ---
RN CM called for initial transition planning/care coordination assessment as patient is unable to participate at this time due to oxygen needs. RN CM introduced self and role at [facility]. Patient lying in bed, alert and oriented. Patient willing to participate in assessment and is able to answer all questions appropriately. Care providers, pharmacy, and demographics verified. wishes for patient to discharge home, denies need for home health at this time. Patient states he has no further needs or concerns at this time. CM to follow for discharge planning needs that may arise. PCP: [facility] Specialists: none Preferred Pharmacy: [facility] in [place] Insurance: [employer] Prescription Benefit: yes Living Will/HPOA: none LNOK: Living Arrangements: Patient lives with and children who are doing better and have been isolating at home. Patient lives in a single story home with 1-3 steps and railing to enter the home. Patient was independent at home and working fulltime. Transportation: self/ DME/HHC: Patient had pulse ox at home. No previous HHC. Will monitor for need for home oxygen at discharge. Disposition Plan: Patient to discharge home with family support and follow-up plans in place. Will monitor for need for home oxygen Tracy MEADOWS, RN, CM
[2021-07-10 16:47] LABS: Anion Gap 8 (5-15); BUN 46 mg/dL (7-18); BUN/Creat Ratio 28.2 RATIO (10-20); Calcium,Total 7.9 mg/dL (8.5-10.1); Chloride 104 mmol/L (98-107); Creatinine, Serum 1.63 mg/dL (0.70-1.30); EST Glomerular Filtration Rate 50 mL/min (>60); Est Glom Filt Rate - Afr Amer 60 mL/min (>60); Estimated Creatinine Clearance 66.12 ml/min; Glucose 285 mg/dL (74-106); Potassium 3.9 mmol/L (3.5-5.1); Sodium Level 133 mmol/L (136-145)
[2021-07-10 16:58] LABS: Bedside Glucose 252 mg/dL (70-110)
[2021-07-10 16:58] LABS: Bedside Glucose 299 mg/dL (70-110)
--- NOTE | 2021-07-10 19:11 | PCM.PN.HOSP ---
Subjective Subjective Patient was seen and examined in ICU today, he does not complain of any fever or chills, he is currently on Airvo. Objective Data Objective Data Vital Signs: Vital Signs Temp Pulse Resp BP Pulse Ox 97.1 F L 77 18 141/71 H 90 07/10/21 16:00 07/10/21 19:00 07/10/21 19:00 07/10/21 19:00 07/10/21 19:00 Oxygen Flow Rate (L/min) 60 Oxygen Delivery Method Airvo Weight: 105.4 kg Body Mass Index (BMI) 31.1 Intake & Output: Intake and Output for Last 24 Hours 07/08/21 07/09/21 07/10/21 23:59 23:59 23:59 Intake Total 500 / 500 3869.32 / 3869.32 Output Total 1375 / 1375 Balance 500 / 150 2494.32 / 2494.32 Lab / Micro Data Result Diagrams: 07/10/21 05:10 07/10/21 16:20 Labs: Laboratory Results - last 24 hr 07/09/21 18:10: Sodium 126 L, Potassium 4.6, Chloride 92 L, Carbon Dioxide 15.0 L, Anion Gap 19 H, BUN 34 H, Creatinine 1.47 H, Estim Creat Clear Calc 73.32, Est GFR (MDRD) Af Amer 68, Est GFR (MDRD) Non-Af 56 L, BUN/Creatinine Ratio 23.1 H, Glucose 395 H, Calcium 7.7 L, Total Bilirubin 0.40, AST 35, ALT 32, Alkaline Phosphatase 67, Troponin I High Sens 60, C-React Prot Ext Range 206.00 H, Total Protein 6.4, Albumin 2.0 L, Globulin 4.4 H, Albumin/Globulin Ratio 0.5 L 07/09/21 18:10: Lactic Acid 2.3 H* 07/09/21 18:10: B-Natriuretic Peptide 213.4 H 07/09/21 18:10: Acetone Level SMALL H 07/09/21 18:10: Phosphorus 3.7 07/09/21 20:55: Magnesium 2.2, Ferritin 1012 H, Lactate Dehydrogenase 510 H, Troponin I High Sens 71, C-React Prot Ext Range 211.00 H 07/09/21 21:50: MRSA (PCR) Negative 07/09/21 22:52: POC Glucose 415 H 07/09/21 23:05: Blood Type A POSITIVE, Antibody Screen NEGATIVE 07/09/21 23:05: Lactic Acid 1.0 07/10/21 01:10: Urine Color Yellow, Urine Clarity Clear, Urine pH 5.0, Ur Specific Jordan 1.015, Urine Protein 100 H, Urine Glucose (UA) 1000 H, Urine Ketones 150 A*, Urine Occult Blood 50 H, Urine Nitrite Negative, Urine Bilirubin Negative, Urine Urobilinogen Normal, Ur Leukocyte Esterase Negative, Urine RBC 0-5 SEEN, Urine WBC 0 SEEN, Ur Squamous Epith Cells 0 SEEN, Urine Bacteria 1+, Urine Mucus 0 SEEN 07/10/21 05:10: WBC 11.2 H, RBC 3.69 L, Hgb 10.9 L, Hct 32.3 L, MCV 87.5, MCH 29.5, MCHC 33.7, RDW Std Deviation 39.5, RDW Coeff of Preet 12.3, Plt Count 250, MPV 11.2, Immature Gran % (Auto) 4.200 H, Neut % (Auto) 84.1 H, Lymph % (Auto) 5.8 L, Garfield % (Auto) 4.4, Eos % (Auto) 1.2, Baso % (Auto) 0.3, Absolute Neuts (auto) 9.4 H, Absolute Lymphs (auto) 0.65 L, Nucleated RBC % 0 07/10/21 05:10: Sodium 128 L, Potassium 4.8, Chloride 95 L, Carbon Dioxide 17.0 L, Anion Gap 16 H, BUN 38 H, Creatinine 1.53 H, Estim Creat Clear Calc 70.44, Est GFR (MDRD) Af Amer 65, Est GFR (MDRD) Non-Af 54 L, BUN/Creatinine Ratio 24.8 H, Glucose 446 H, Calcium 8.0 L, Total Bilirubin 0.40, AST 31, ALT 31, Alkaline Phosphatase 64, Total Protein 6.3 L, Albumin 1.9 L, Globulin 4.4 H, Albumin/Globulin Ratio 0.4 L 07/10/21 05:10: Hemoglobin A1c 9.7 H 07/10/21 08:30: POC Glucose 476 H* 07/10/21 09:37: POC Glucose 435 H 07/10/21 10:42: POC Glucose 415 H 07/10/21 12:34: POC Glucose 326 H 07/10/21 12:35: Sodium 133 L, Potassium 4.0, Chloride 101, Carbon Dioxide 22.0, Anion Gap 10, BUN 45 H, Creatinine 1.75 H, Estim Creat Clear Calc 61.59, Est GFR (MDRD) Af Amer 56 L, Est GFR (MDRD) Non-Af 46 L, BUN/Creatinine Ratio 25.7 H, Glucose 366 H, Calcium 8.1 L 07/10/21 13:39: POC Glucose 312 H 07/10/21 14:24: POC Glucose 289 H 07/10/21 16:18: POC Glucose 299 H 07/10/21 16:19: POC Glucose 252 H 07/10/21 16:20: Sodium 133 L, Potassium 3.9, Chloride 104, Carbon Dioxide 21.0, Anion Gap 8, BUN 46 H, Creatinine 1.63 H, Estim Creat Clear Calc 66.12, Est GFR (MDRD) Af Amer 60, Est GFR (MDRD) Non-Af 50 L, BUN/Creatinine Ratio 28.2 H, Glucose 285 H, Calcium 7.9 L Micro: Microbiology 07/09/21 21:50 Mucosa - Nose Respiratory Panel (PCR) - Final 07/09/21 19:47 Urine, Clean Catch Streptococcus pneumoniae Antigen (M - Final 07/09/21 19:47 Urine, Random Legionella Antigen - Final Radiography Diagnostic Testing: Radiology Impression Chest X-Ray 07/09/21 18:25 IMPRESSION: Bilateral patchy, somewhat confluent, moderately dense airspace disease, right greater than left as could be seen with Covid pneumonia. Electronically Signed: Aleks Evans DO at 19:55 EDT Tel , Service support , Chest CTA 07/09/21 18:49 IMPRESSION: Very limited exam, significantly increasing possibility of false positive exam showing some areas, especially in the right left upper lobes, suspicious for emboli. No associated evidence of right heart strain. Confluent, patchy, moderately dense airspace disease compatible with Covid pneumonia. Numerous, prominent mediastinal lymph nodes without suspicious confluence of lymph nodes or mass lesion. Electronically Signed: Aleks Evans DO at 20:42 EDT Tel , Service support , ADDENDUM: 07/09/212053 IMPRESSION: Very limited exam, significantly increasing possibility of false positive exam showing some areas, especially in the right left upper lobes, suspicious for emboli. No associated evidence of right heart strain. Confluent, patchy, moderately dense airspace disease compatible with Covid pneumonia. Numerous, prominent mediastinal lymph nodes without suspicious confluence of lymph nodes or mass lesion. N.B. : The above Results were Read Back by Aleks Evans DO to Dr. Aleks Watson MD, and understanding confirmed on 07/09/2021 20:47:15 (ET). Electronically Signed: Aleks Evans DO at 20:42 EDT Tel , Service support , Physical Exam Const alert, oriented x3, no apparent distress and well nourished General Appearance: cooperative, well kempt and well developed Orientation / Consciousness: awake, oriented to person, oriented to place and oriented to time HEENT normocephalic, head/scalp atraumatic and moist oral mucous membranes Head and Scalp: normocephalic Eyes PERRL, EOMs intact bilaterally and conjunctivae normal Neck nuchal rigidity, supple, no JVD, thyroid normal and no carotid bruits General: trachea midline Resp normal respiratory effort, no retractions and clear to auscultation bilaterally Auscultation: Negative for rales, rhonchi or wheezes Cardio regular rate, regular rhythm, S1 normal heart sound, S2 normal heart sound, no murmurs, no rub and no gallops GI normal to inspection, nondistended, normoactive bowel sounds, soft to palpation, non-tender and non-distended Extremity normal to inspection, full ROM and no clubbing, cyanosis or edema Skin no rashes or lesions noted, no wounds and skin turgor normal General Skin Exam: no breakdown Neuro oriented x3, CN's II-XII intact bilaterally, no focal motor deficits and no sensory deficits noted Sensorium / Orientation: awake and alert Speech: speech normal Psych thought process normal and affect normal Assessment & Plan Assessment/Plan (1) COVID-19: PLAN: 1. COVID-19 pneumonia-continue present treatment per infectious diseases and pulmonary medicine, patient is currently getting Decadron, remdesivir, and Olumiant. Patient is also empirically getting vancomycin and Zosyn. #2 acute hypoxic respiratory failure secondary to #1-pulmonary medicine is participating in his care #3 possible pulmonary emboli-patient is currently fully anticoagulated with Lovenox #4 type 2 diabetes under poor control-blood sugars will continue to be monitored #5 essential hypertension-patient is currently not on his home lisinopril, blood pressures will continue to be monitored at this time, patient's creatinine is elevated indicating possible acute kidney injury #6 elevated creatinine-possibly secondary to chronic kidney disease versus acute kidney injury, BMP will be monitored Charges/Coding Visit Charges Inpatient E&M: 70814 Subs Hosp L2
[2021-07-10] MEDS: Insulin Lispro 100 UNIT/ML INSULN.PEN SC (22:38)
[2021-07-11] VITALS (35 sets, daily range): BP systolic 123–173; BP diastolic 67–111; PULSE 58–145; RESP 16–30; TEMP 36.2–36.8; O2SAT 89–99
[2021-07-11 01:46] LABS: Bedside Glucose 411 mg/dL (70-110)
--- NOTE | 2021-07-11 07:52 | PN.CC_ITS ---
Assessment & Plan Assessment/Plan (1) COVID-19: (2) Respiratory failure: QUALIFIERS: Chronicity: acute Respiratory failure complication: hypoxia Qualified Code(s): J96.01 - Acute respiratory failure with hypoxia PLAN: RECOMMENDATIONS: 1. Continue to wean FiO2 to maintain oxygen saturations at or above 90%. 2. Continue remdesivir to complete 5-day treatment course. 3. Continue Decadron to complete 10-day treatment course. 4. Recheck morning labs. 5. Start Baricitinib per ID recommendations. 6. Continue Lantus and sliding scale coverage. 7. Continue Lovenox as ordered. IMPRESSIONS: 1. Acute hypoxemic respiratory failure secondary to COVID-19 pneumonia The patient presented to the hospital with approximately 10 days of progressive Covid symptoms, having tested positive on the second. Plan to continue current supportive measures. FiO2 will be weaned to maintain oxygen saturations at or above 90%. The patient will be continued on remdesivir as ordered. Liver and renal function will be monitored. The patient will complete a 10-day course of Decadron. Plan to initiate KELY inhibitor therapy today per ID recommendations. Given that the patient presented with an elevated D-dimer and suboptimal CTA c hest, therapeutic Lovenox will be continued. Periodic use of IV Lasix can be utilized to maintain euvolemic state. 2. Diabetic ketoacidosis Resolved. Continue Lantus and sliding scale insulin coverage. 3. Acute kidney injury Most likely prerenal in etiology. Anticipate improvement with volume expansion. Continue to monitor urine output for now. No current indication for renal replacement therapy. 4. Obesity/hypertension/GERD Complicates care, management, recovery and prognosis. Continue home medications as indicated. This note was generated with [employer] dictation software. It may contain incorrect words, spelling, and punctuation that were not noted in checking the note before signing. Subjective Subjective The patient was seen and examined at the bedside this morning. Events from the last 24 hours have been reviewed. The patient is currently afebrile, hemodynamically stable and maintaining appropriate oxygen saturations on Airvo heated high flow with an FiO2 requirement of 65% and flow rate of 60 L/min. The patient did have an uneventful night. He feels well this morning. He has been actively attempting to prone himself while in bed. He is currently documented to be overall net +3.4 L for the hospital admission. The patient remains on remdesivir, empiric antimicrobials, Decadron and Lovenox. Objective Data Objective Data The patient's most recent lab work, culture data and imaging studies have all be en personally reviewed. Blood cultures are pending. Strep and urine Legionella antigens were negative. Respiratory viral panel was negative. Vital Signs: Vital Signs Temp Pulse Resp BP Pulse Ox 98.0 F 74 24 H 140/72 H 96 07/11/21 00:00 07/11/21 07:32 07/11/21 07:31 07/11/21 05:00 07/11/21 05:00 Oxygen Flow Rate (L/min) 60 Oxygen Delivery Method Airvo Weight: 106.5 kg Body Mass Index (BMI) 31.1 Intake & Output: Intake and Output for Last 24 Hours 07/09/21 07/10/21 07/11/21 23:59 23:59 23:59 Intake Total 500 / 500 3869.32 / 3869.32 835 / 835 Output Total 1375 / 1375 400 / 400 Balance 500 / 150 2494.32 / 2494.32 435 / 435 Lab / Micro Data Attestation: I reviewed the patient's lab results. Result Diagrams: 07/10/21 05:10 07/10/21 16:20 Labs: Laboratory Results - last 24 hr 07/09/21 23:05: Blood Type A POSITIVE, Antibody Screen NEGATIVE 07/10/21 08:30: POC Glucose 476 H* 07/10/21 09:37: POC Glucose 435 H 07/10/21 10:42: POC Glucose 415 H 07/10/21 12:34: POC Glucose 326 H 07/10/21 12:35: Sodium 133 L, Potassium 4.0, Chloride 101, Carbon Dioxide 22.0, Anion Gap 10, BUN 45 H, Creatinine 1.75 H, Estim Creat Clear Calc 61.59, Est GFR (MDRD) Af Amer 56 L, Est GFR (MDRD) Non-Af 46 L, BUN/Creatinine Ratio 25.7 H, Glucose 366 H, Calcium 8.1 L 07/10/21 13:39: POC Glucose 312 H 07/10/21 14:24: POC Glucose 289 H 07/10/21 16:18: POC Glucose 299 H 07/10/21 16:19: POC Glucose 252 H 07/10/21 16:20: Sodium 133 L, Potassium 3.9, Chloride 104, Carbon Dioxide 21.0, Anion Gap 8, BUN 46 H, Creatinine 1.63 H, Estim Creat Clear Calc 66.12, Est GFR (MDRD) Af Amer 60, Est GFR (MDRD) Non-Af 50 L, BUN/Creatinine Ratio 28.2 H, Glucose 285 H, Calcium 7.9 L 07/10/21 22:37: POC Glucose 411 H Micro: Microbiology 07/09/21 21:50 Mucosa - Nose Respiratory Panel (PCR) - Final 07/09/21 19:47 Urine, Clean Catch Streptococcus pneumoniae Antigen (M - Final 07/09/21 19:47 Urine, Random Legionella Antigen - Final Physical Exam Const alert General Appearance: cooperative and ill appearing Nutritional Appearance: obese HEENT normocephalic and head/scalp atraumatic Eyes PERRL and EOMs intact bilaterally Neck supple General: trachea midline Resp Effort and Inspection: tachypneic; Negative for uses accessory muscles Auscultation: diminished lung sounds; Negative for rales, rhonchi or wheezes Cardio regular rate and regular rhythm GI normal to inspection, nondistended, normoactive bowel sounds Extremity no clubbing, cyanosis or edema Skin no rashes or lesions noted Neuro moves all extremities and no focal motor deficits Psych cooperative and affect normal Charges/Coding Visit Charges Inpatient E&M: 79432 Subs Hosp L3
[2021-07-11] MEDS: Insulin Lispro 100 UNIT/ML INSULN.PEN SC ×4 (08:31→22:10)
[2021-07-11] MEDS: Enoxaparin 100 MG/ML Syringe SC ×2 (08:33→22:14)
[2021-07-11] MEDS: Pantoprazole Sodium 40 MG Tablet PO ×2 (08:33→22:16)
[2021-07-11] MEDS: dexAMETHasone 10 MG/ML Vial 6 MG IV (08:33)
[2021-07-11 09:06] LABS: Hematocrit 31.4 % (40-54); Hemoglobin 10.9 g/dL (13.0-16.5); Mean Corp Hgb Conc 34.7 g/dL (32-36); Mean Corpuscular Hgb 29.6 pg (27.0-32.0); Mean Corpuscular Volume 85.3 fL (80-94); Mean Platelet Vol. 10.5 fl (6.2-12.0); POSITIVE COUNT YES; POSITIVE MORPHOLOGY YES; Platelet Count 357 K/mm3 (150-450); RBC Distribution Width CV 12.7 % (11.6-14.6); RBC Distribution Width SD 39.4 fl (35.1-43.9); Red Blood Count 3.68 M/mm3 (4.6-6.2); White Blood Count 19.7 K/mm3 (4.4-11.0)
[2021-07-11 09:22] LABS: ALB/GLOB Ratio 0.4 RATIO (0.9-2.4); AST(SGOT) 35 U/L (15-37); Alanine Aminotransfer ALT/SGPT 41 U/L (16-61); Albumin, Serum 1.7 g/dL (3.2-5.0); Alkaline Phosphatase 61 U/L (45-117); Anion Gap 11 (5-15); BUN 51 mg/dL (7-18); BUN/Creat Ratio 31.9 RATIO (10-20); Calcium,Total 7.9 mg/dL (8.5-10.1); Chloride 102 mmol/L (98-107); EST Glomerular Filtration Rate 51 mL/min (>60); Est Glom Filt Rate - Afr Amer 62 mL/min (>60); Estimated Creatinine Clearance 67.36 ml/min; Globulin 4.3 g/dL (2.2-4.2); Glucose 419 mg/dL (74-106); Potassium 4.2 mmol/L (3.5-5.1); Sodium Level 133 mmol/L (136-145)
[2021-07-11 09:26] LABS: Differential Indicated MANUAL DIFF
[2021-07-11 10:22] LABS: Bedside Glucose 359 mg/dL (70-110)
[2021-07-11 10:41] LABS: Neutrophil-Band 1 % (0-5); Neutrophil-Segmented 84 % (47-70); Total Cells Counted 100 (MANUAL DIFF)
[2021-07-11 10:47] LABS: Lymphocyte 9 % (19-41); Monocyte 5 % (0-10); Myelocyte 1 % (0-0); Platelet Estimate ADEQUATE (ADEQ); Red Cell Morphology NORM C+C NORMAL (NORM C&C)
[2021-07-11 10:49] LABS: Absolute Neutrophil Count 16.7 X10^3/uL (2.0-7.7)
[2021-07-11 10:51] LABS: Absolute Lymphocyte Count 1.78 X10^3/uL (0.83-4.51)
[2021-07-11 12:55] LABS: Bedside Glucose 406 mg/dL (70-110)
[2021-07-11 14:23] LABS: Vancomycin, Trough Level 32.4 ug/mL (5.0-15.0)
--- NOTE | 2021-07-11 14:49 | NURSING ---
vanc infusion stopped at this time per selena in pharmacy d/t vanc trough of 32.4
--- NOTE | 2021-07-11 15:01 | PCM.RX.CS ---
Consult Pharmacy has been consulted to manage selected antiobiotic: Vancomycin Type of Consult: Follow-up Suspected Infection: Pneumonia Prior Doses of Antibiotics Received/Current Regimen: current regimen is 1750mg IV q12h Labs: Sodium 133 mmol/L (136-145) L 07/11/21 08:45 Potassium 4.2 mmol/L (3.5-5.1) 07/11/21 08:45 Chloride 102 mmol/L (98-107) 07/11/21 08:45 Carbon Dioxide 20.0 mmol/L (21.0-32.0) L 07/11/21 08:45 Anion Gap 11 (5-15) 07/11/21 08:45 BUN 51 mg/dL (7-18) H 07/11/21 08:45 Creatinine 1.60 mg/dL (0.70-1.30) H 07/11/21 08:45 Est GFR (MDRD) Af Amer 62 mL/min (>60) 07/11/21 08:45 Est GFR (MDRD) Non-Af 51 mL/min (>60) L 07/11/21 08:45 BUN/Creatinine Ratio 31.9 RATIO (10-20) H 07/11/21 08:45 Glucose 419 mg/dL (74-106) H 07/11/21 08:45 Vancomycin Trough 32.4 ug/mL (5.0-15.0) H 07/11/21 13:45 Microbiology: Microbiology 07/09/21 21:50 Mucosa - Nose Respiratory Panel (PCR) - Final 07/09/21 19:47 Urine, Clean Catch Streptococcus pneumoniae Antigen (M - Final 07/09/21 19:47 Urine, Random Legionella Antigen - Final Weight used for dosin.5 kg Estimated Creatinine Clearance: 77 ml/min Goal Trough: 15-20 mcg/mL Pharmacy Plan for Drug Dosing: The vanc random level drawn at 13:45 today (11 hrs after the previous dose) was 32.4. This is well above goal range so the nurse was called to stop the current infusion that was hung at 14:02 (about half the dose was infused). Further dosing will also be held at this time. Will check a random level in 24 hours and reevaluate further dosing at that time. The patient's CrCl of 77ml/min was calculated using an adjusted body weight of 89.2kg. Pharmacy Service will continue to monitor and adjust dosing as required. Follow-Up Labs: Trough Vancomycin - random Labs to be done on [date and time ordered]: 07/12/21 14:00
[2021-07-11 17:36] LABS: Bedside Glucose 393 mg/dL (70-110)
--- NOTE | 2021-07-11 18:17 | PN.HOSP_ITS ---
Subjective Subjective Patient was seen and examined today in ICU, he is currently on air Vo, he does not complain of any shortness of breath at rest to this examiner, he has no complaints of any chills or fever. Objective Data Objective Data Vital Signs: Vital Signs Temp Pulse Resp BP Pulse Ox 97.1 F L 61 21 H 149/82 H 94 07/11/21 08:29 07/11/21 18:00 07/11/21 18:00 07/11/21 18:00 07/11/21 18:00 Oxygen Flow Rate (L/min) 60 Oxygen Delivery Method Airvo Weight: 106.5 kg Body Mass Index (BMI) 31.1 Intake & Output: Intake and Output for Last 24 Hours 07/09/21 07/10/21 07/11/21 23:59 23:59 23:59 Intake Total 500 / 500 3869.32 / 3869.32 1122.5 / 1122.5 Output Total 1375 / 1375 2150 / 2150 Balance 500 / 150 2494.32 / 2494.32 -1027.5 / -1027.5 Lab / Micro Data Result Diagrams: 07/11/21 08:45 07/11/21 08:45 Labs: Laboratory Results - last 24 hr 07/10/21 22:37: POC Glucose 411 H 07/11/21 08:26: POC Glucose 359 H 07/11/21 08:45: WBC 19.7 H, RBC 3.68 L, Hgb 10.9 L, Hct 31.4 L, MCV 85.3, MCH 29.6, MCHC 34.7, RDW Std Deviation 39.4, RDW Coeff of Preet 12.7, Plt Count 357, MPV 10.5, Neut % (Auto) Not Reportable, Absolute Neuts (auto) 16.7 H, Absolute Lymphs (auto) 1.78, Total Counted 100, Neutrophils % (Manual) 84 H, Band Neutrophils % 1, Lymphocytes % (Manual) 9 L, Monocytes % (Manual) 5, Myelocytes % 1 H, Diff Path Review February, Platelet Estimate ADEQUATE, RBC Morphology NORM C+C 07/11/21 08:45: Sodium 133 L, Potassium 4.2, Chloride 102, Carbon Dioxide 20.0 L , Anion Gap 11, BUN 51 H, Creatinine 1.60 H, Estim Creat Clear Calc 67.36, Est GFR (MDRD) Af Amer 62, Est GFR (MDRD) Non-Af 51 L, BUN/Creatinine Ratio 31.9 H, Glucose 419 H, Calcium 7.9 L, Total Bilirubin 0.40, AST 35, ALT 41, Alkaline Phosphatase 61, Total Protein 6.0 L, Albumin 1.7 L, Globulin 4.3 H, Albumin/Globulin Ratio 0.4 L 07/11/21 12:17: POC Glucose 406 H 07/11/21 13:45: Vancomycin Trough 32.4 H 07/11/21 16:38: POC Glucose 393 H Micro: Microbiology 07/09/21 21:50 Mucosa - Nose Respiratory Panel (PCR) - Final 07/09/21 19:47 Urine, Clean Catch Streptococcus pneumoniae Antigen (M - Final 07/09/21 19:47 Urine, Random Legionella Antigen - Final Physical Exam Narrative Const alert, oriented x3, no apparent distress and well nourished General Appearance: cooperative, well kempt and well developed Orientation / Consciousness: awake, oriented to person, oriented to place and oriented to time HEENT normocephalic, head/scalp atraumatic and moist oral mucous membranes Head and Scalp: normocephalic Eyes PERRL, EOMs intact bilaterally and conjunctivae normal Neck nuchal rigidity, supple, no JVD, thyroid normal and no carotid bruits General: trachea midline Resp normal respiratory effort, no retractions and clear to auscultation bilaterally Auscultation: Negative for rhonchi or wheezes, scattered inspiratory rales over the lower lung clements bilaterally Cardio regular rate, regular rhythm, S1 normal heart sound, S2 normal heart sound, no murmurs, no rub and no gallops GI normal to inspection, nondistended, normoactive bowel sounds, soft to palpation, non-tender and non-distended Extremity normal to inspection, full ROM and no clubbing, cyanosis or edema Skin no rashes or lesions noted, no wounds and skin turgor normal General Skin Exam: no breakdown Neuro oriented x3, CN's II-XII intact bilaterally, no focal motor deficits and no sensory deficits noted Sensorium / Orientation: awake and alert Speech: speech normal Psych thought process normal and affect normal Assessment & Plan Assessment/Plan (1) COVID-19: PLAN: 1. COVID-19 pneumonia-continue present treatment per infectious diseases and pulmonary medicine, patient is currently getting Decadron, remdesivir, and Olumiant. Patient is also empirically getting vancomycin and Zosyn. #2 acute hypoxic respiratory failure secondary to #1-pulmonary medicine is participating in his care #3 possible pulmonary emboli-patient is currently fully anticoagulated with Lovenox #4 type 2 diabetes under poor control-blood sugars will continue to be monitored, blood sugars are still high at this time, I have adjusted the patient's basal insulin dosage and increased his sliding scale coverage #5 essential hypertension-patient is currently not on his home lisinopril, blood pressures will continue to be monitored at this time, patient's creatinine is elevated indicating possible acute kidney injury, I have decided to place the patient on Norvasc daily. #6 elevated creatinine-possibly secondary to chronic kidney disease versus acute kidney injury, BMP will be monitored Charges/Coding Visit Charges Inpatient E&M: 03763 Subs Hosp L2
[2021-07-11] MEDS: amLODIPine 5 MG Tablet PO (18:45)
[2021-07-11] MEDS: Bisacodyl 5 MG Tablet 20 MG PO (20:11)
--- NOTE | 2021-07-11 20:40 | NURSING ---
2000 pt sitting in chair airvo 60L, 65%. short of breath with cough. attempts to use IS. no complaint of pain
[2021-07-11 22:31] LABS: Bedside Glucose 403 mg/dL (70-110)
--- NOTE | 2021-07-11 22:48 | NURSING ---
[id number] pt assisted back to bed. significant coughing and desat to 85%. o2 increased by RT until patient recovers
--- NOTE | 2021-07-11 22:50 | NURSING ---
pt resting in bed, remains on airvo, recovered from coughing, pulse ox 97%
[2021-07-12] VITALS (39 sets, daily range): BP systolic 128–149; BP diastolic 77–96; PULSE 60–90; RESP 16–28; TEMP 35.9–36.6; O2SAT 65–99
[2021-07-12 04:33] LABS: Hematocrit 31.8 % (40-54); Hemoglobin 11.1 g/dL (13.0-16.5); Mean Corp Hgb Conc 34.9 g/dL (32-36); Mean Corpuscular Hgb 29.4 pg (27.0-32.0); Mean Corpuscular Volume 84.4 fL (80-94); Mean Platelet Vol. 10.1 fl (6.2-12.0); POSITIVE COUNT YES; POSITIVE MORPHOLOGY YES; Platelet Count 399 K/mm3 (150-450); RBC Distribution Width CV 12.8 % (11.6-14.6); RBC Distribution Width SD 39.1 fl (35.1-43.9); Red Blood Count 3.77 M/mm3 (4.6-6.2); White Blood Count 18.5 K/mm3 (4.4-11.0)
[2021-07-12 04:34] LABS: Differential Indicated MANUAL DIFF
[2021-07-12 04:53] LABS: ALB/GLOB Ratio 0.4 RATIO (0.9-2.4); AST(SGOT) 29 U/L (15-37); Alanine Aminotransfer ALT/SGPT 41 U/L (16-61); Albumin, Serum 1.8 g/dL (3.2-5.0); Alkaline Phosphatase 64 U/L (45-117); Anion Gap 9 (5-15); BUN 44 mg/dL (7-18); BUN/Creat Ratio 29.9 RATIO (10-20); Calcium,Total 7.6 mg/dL (8.5-10.1); Chloride 103 mmol/L (98-107); Creatinine, Serum 1.47 mg/dL (0.70-1.30); EST Glomerular Filtration Rate 56 mL/min (>60); Est Glom Filt Rate - Afr Amer 68 mL/min (>60); Estimated Creatinine Clearance 73.32 ml/min; Globulin 4.4 g/dL (2.2-4.2); Glucose 350 mg/dL (74-106); Protein, Total 6.2 g/dL (6.4-8.2); Sodium Level 133 mmol/L (136-145)
[2021-07-12 06:33] LABS: Total Cells Counted 100 (MANUAL DIFF)
[2021-07-12 06:36] LABS: Atypical Lymphocyte RARE %; Lymphocyte 10 % (19-41); Metamyelocyte 1 % (0-1); Monocyte 4 % (0-10); Neutrophil-Band 5 % (0-5); Neutrophil-Segmented 80 % (47-70); Platelet Estimate ADEQUATE (ADEQ); Red Cell Morphology NORM C+C NORMAL (NORM C&C)
[2021-07-12 06:37] LABS: Absolute Lymphocyte Count 1.85 X10^3/uL (0.83-4.51); Absolute Neutrophil Count 15.7 X10^3/uL (2.0-7.7); Lymphocyte # 1.85 X10^3/ul (0.83-4.51); Neutrophil # 15.69 X10^3/uL (2.7-7.7)
--- NOTE | 2021-07-12 07:37 | PCM.PN.INT ---
Assessment & Plan Assessment/Plan (1) COVID-19: (2) Respiratory failure: QUALIFIERS: Chronicity: acute Respiratory failure complication: hypoxia Qualified Code(s): J96.01 - Acute respiratory failure with hypoxia PLAN: RECOMMENDATIONS: 1. Continue to wean FiO2 to maintain oxygen saturations at or above 90%. 2. Continue remdesivir to complete 5-day treatment course. 3. Continue Decadron to complete 10-day treatment course. 4. Monitor liver function daily 5. Continue baricitinib. 6. Continue Lantus and sliding scale coverage. 7. Continue Lovenox as ordered. IMPRESSIONS: 1. Acute hypoxemic respiratory failure secondary to COVID-19 pneumonia The patient presented to the hospital with approximately 10 days of progressive Covid symptoms, having tested positive on the second. Plan to continue current supportive measures. FiO2 will be weaned to maintain oxygen saturations at or above 90%. The patient will be continued on remdesivir as ordered. Liver and renal function will be monitored. The patient will complete a 10-day course of Decadron. Continue KELY inhibitor therapy today per ID recommendations. Given that the patient presented with an elevated D-dimer and suboptimal CTA chest, therapeutic Lovenox will be continued. We will hold on Lasix therapy for now given renal function. 2. Diabetic ketoacidosis Resolved. Increase Lantus and sliding scale insulin coverage. 3. Acute kidney injury Most likely prerenal in etiology. Slight improvement with volume expansion. Continue to monitor urine output for now. No current indication for renal replacement therapy. 4. Obesity/hypertension/GERD Complicates care, management, recovery and prognosis. Continue home medications as indicated. This note was generated with [employer] dictation software. It may contain incorrect words, spelling, and punctuation that were not noted in checking the note before signing. Subjective Subjective Patient did well overnight. No hemodynamic instability was noted for most of the evening. Patient did health and fit this morning requiring increased from 65% to 80%. Patient was being weaned during my evaluation. Patient subjectively feels improved compared to yesterday. Patient still has paroxysmal coughing. Objective Data Objective Data Vital Signs: Vital Signs Temp Pulse Resp BP Pulse Ox 36.6 C 73 27 H 144/79 H 92 07/12/21 04:00 07/12/21 07:36 07/12/21 07:36 07/12/21 06:00 07/12/21 07:36 Oxygen Flow Rate (L/min) 60 Oxygen Delivery Method Airvo Weight: 106.5 kg Body Mass Index (BMI) 31.1 Intake & Output: Intake and Output for Last 24 Hours 07/10/21 07/11/21 07/12/21 23:59 23:59 23:59 Intake Total 3869.32 / 3869.32 1122.5 / 1522.5 650 / 650 Output Total 1375 / 1375 2800 / 2800 800 / 800 Balance 2494.32 / 2494.32 -1677.5 / -1277.5 -150 / -150 Lab / Micro Data Result Diagrams: 07/12/21 04:20 07/12/21 04:20 Labs: Laboratory Results - last 24 hr 07/11/21 08:26: POC Glucose 359 H 07/11/21 08:45: WBC 19.7 H, RBC 3.68 L, Hgb 10.9 L, Hct 31.4 L, MCV 85.3, MCH 29.6, MCHC 34.7, RDW Std Deviation 39.4, RDW Coeff of Preet 12.7, Plt Count 357, MPV 10.5, Neut % (Auto) Not Reportable, Absolute Neuts (auto) 16.7 H, Absolute Lymphs (auto) 1.78, Total Counted 100, Neutrophils % (Manual) 84 H, Band Neutrophils % 1, Lymphocytes % (Manual) 9 L, Monocytes % (Manual) 5, Myelocytes % 1 H, Diff Path Review May , Platelet Estimate ADEQUATE, RBC Morphology NORM C+C 07/11/21 08:45: Sodium 133 L, Potassium 4.2, Chloride 102, Carbon Dioxide 20.0 L, Anion Gap 11, BUN 51 H, Creatinine 1.60 H, Estim Creat Clear Calc 67.36, Est GFR (MDRD) Af Amer 62, Est GFR (MDRD) Non-Af 51 L, BUN/Creatinine Ratio 31.9 H, Glucose 419 H, Calcium 7.9 L, Total Bilirubin 0.40, AST 35, ALT 41, Alkaline Phosphatase 61, Total Protein 6.0 L, Albumin 1.7 L, Globulin 4.3 H, Albumin/Globulin Ratio 0.4 L 07/11/21 12:17: POC Glucose 406 H 07/11/21 13:45: Vancomycin Trough 32.4 H 07/11/21 16:38: POC Glucose 393 H 07/11/21 22:01: POC Glucose 403 H 07/12/21 04:20: Sodium 133 L, Potassium 4.0, Chloride 103, Carbon Dioxide 21.0, Anion Gap 9, BUN 44 H, Creatinine 1.47 H, Estim Creat Clear Calc 73.32, Est GFR (MDRD) Af Amer 68, Est GFR (MDRD) Non-Af 56 L, BUN/Creatinine Ratio 29.9 H, Glucose 350 H, Calcium 7.6 L, Total Bilirubin 0.40, AST 29, ALT 41, Alkaline Phosphatase 64, Total Protein 6.2 L, Albumin 1.8 L, Globulin 4.4 H, Albumin/Globulin Ratio 0.4 L 07/12/21 04:20: WBC 18.5 H, RBC 3.77 L, Hgb 11.1 L, Hct 31.8 L, MCV 84.4, MCH 29.4, MCHC 34.9, RDW Std Deviation 39.1, RDW Coeff of Preet 12.8, Plt Count 399, MPV 10.1, Neut % (Auto) Not Reportable, Absolute Neuts (auto) 15.7 H, Absolute Lymphs (auto) 1.85, Total Counted 100, Neutrophils % (Manual) 80 H, Band Neutrophils % 5, Lymphocytes % (Manual) 10 L, Monocytes % (Manual) 4, Metamyelocytes % 1, Diff Path Review May foll, Atypical Lymphocytes RARE, Platelet Estimate ADEQUATE, RBC Morphology NORM C+C Micro: Microbiology 07/09/21 21:50 Mucosa - Nose Respiratory Panel (PCR) - Final 07/09/21 19:47 Urine, Clean Catch Streptococcus pneumoniae Antigen (M - Final 07/09/21 19:47 Urine, Random Legionella Antigen - Final Physical Exam Const alert and oriented x3 General Appearance: cooperative Nutritional Appearance: obese HEENT normocephalic, head/scalp atraumatic, hearing grossly normal bilaterally and external ears normal Eyes PERRL, EOMs intact bilaterally, conjunctivae normal and no scleral icterus Lymph Lymphatic: no lymphadenopathy noted Chest inspection of chest normal Chest: symmetrical chest wall rise; Negative for crepitus Resp Resp Narrative: Cough with deep inhalation Auscultation: diminished lung sounds; Negative for rales, rhonchi or wheezes Cardio regular rate, regular rhythm, S1 normal heart sound, S2 normal heart sound, no murmurs, no rub and no gallops Extremity normal to inspection General Extremity: edema bilateral (1+) lower extremity; Negative for clubbing or cyanosis Peripheral Pulses: Yes pulses 2+ throughout Skin no rashes or lesions noted Neuro oriented x3, CN's II-XII intact bilaterally, moves all extremities and no focal motor deficits Psych mental status grossly normal, thought process normal, cooperative and affect normal Charges/Coding Visit Charges Inpatient E&M: 91314 Subs Hosp L3
[2021-07-12] MEDS: dexAMETHasone 10 MG/ML Vial 6 MG IV (08:53)
[2021-07-12] MEDS: amLODIPine 5 MG Tablet PO (08:53)
[2021-07-12] MEDS: Pantoprazole Sodium 40 MG Tablet PO ×2 (08:53→22:05)
[2021-07-12] MEDS: Enoxaparin 100 MG/ML Syringe SC ×2 (08:53→22:05)
[2021-07-12] MEDS: Insulin Lispro 100 UNIT/ML INSULN.PEN SC ×4 (08:54→22:06)
[2021-07-12 10:36] LABS: Bedside Glucose 319 mg/dL (70-110)
[2021-07-12 11:40] LABS: Bedside Glucose 358 mg/dL (70-110)
[2021-07-12 14:35] LABS: Vancomycin, Random Level 16.7 ug/mL (0.0-15.0)
[2021-07-12] MEDS: Vancomycin IV 1,000 MG/200 ML BAG 200 MG IV (16:16)
[2021-07-12 16:25] LABS: Bedside Glucose 309 mg/dL (70-110)
--- NOTE | 2021-07-12 17:03 | PCM.RX.CS ---
Consult Pharmacy has been consulted to manage selected antiobiotic: Vancomycin Type of Consult: Follow-up Suspected Infection: Pneumonia Prior Doses of Antibiotics Received/Current Regimen: had been on 1750mg q12h until it was held yesterday due to a high trough of 32.4 Labs: Sodium 133 mmol/L (136-145) L 07/12/21 04:20 Potassium 4.0 mmol/L (3.5-5.1) 07/12/21 04:20 Chloride 103 mmol/L (98-107) 07/12/21 04:20 Carbon Dioxide 21.0 mmol/L (21.0-32.0) 07/12/21 04:20 Anion Gap 9 (5-15) 07/12/21 04:20 BUN 44 mg/dL (7-18) H 07/12/21 04:20 Creatinine 1.47 mg/dL (0.70-1.30) H 07/12/21 04:20 Est GFR (MDRD) Af Amer 68 mL/min (>60) 07/12/21 04:20 Est GFR (MDRD) Non-Af 56 mL/min (>60) L 07/12/21 04:20 BUN/Creatinine Ratio 29.9 RATIO (10-20) H 07/12/21 04:20 Glucose 350 mg/dL (74-106) H 07/12/21 04:20 Vancomycin Trough 32.4 ug/mL (5.0-15.0) H 07/11/21 13:45 Random Vancomycin 16.7 ug/mL (0.0-15.0) H 07/12/21 13:40 Microbiology: Microbiology 07/09/21 18:10 Blood Culture (Wb) - Anticubital Right Blood Culture - Preliminary No growth in 48 hours. 07/09/21 19:15 Blood Culture (Wb) - Anticubital Left Blood Culture - Preliminary No growth in 48 hours. 07/09/21 21:50 Mucosa - Nose Respiratory Panel (PCR) - Final 07/09/21 19:47 Urine, Clean Catch Streptococcus pneumoniae Antigen (M - Final 07/09/21 19:47 Urine, Random Legionella Antigen - Final Weight used for dosin.5 kg Estimated Creatinine Clearance: 84ml/min Goal Trough: 15-20 mcg/mL Pharmacy Plan for Drug Dosing: The vanc random level drawn at 13:40 today (about 23 hours after the last infusion of 1750mg was stopped half way through) came back as 16.7. Since it is back below 20, dosing can be resumed. Will restart at 1000mg q12h and check a trough before the 4th dose. The patient's CrCl of 84ml/min was calculated using an adjusted body weight of 89.2kg. Pharmacy Service will continue to monitor and adjust dosing as required. Follow-Up Labs: Trough Vancomycin Labs to be done on [date and time ordered]: 07/14/21 8803
--- NOTE | 2021-07-12 17:24 | PCM.PN.HOSP ---
Subjective Subjective Patient was seen and examined today, he remains on Airvo, he states he appears comfortable, he does not look in any distress. Objective Data Objective Data Vital Signs: Vital Signs Temp Pulse Resp BP Pulse Ox 96.6 F L 90 28 H 145/94 H 91 07/12/21 17:07 07/12/21 17:07 07/12/21 17:07 07/12/21 17:07 07/12/21 17:07 Oxygen Flow Rate (L/min) 60 Oxygen Delivery Method Airvo Weight: 106.5 kg Body Mass Index (BMI) 31.1 Intake & Output: Intake and Output for Last 24 Hours 07/10/21 07/11/21 07/12/21 23:59 23:59 23:59 Intake Total 3869.32 / 3869.32 1372.5 / 1772.5 1180 / 1180 Output Total 1375 / 1375 2800 / 2800 1250 / 1250 Balance 2494.32 / 2494.32 -1427.5 / -1027.5 -70 / -70 Lab / Micro Data Result Diagrams: 07/12/21 04:20 07/12/21 04:20 Labs: Laboratory Results - last 24 hr 07/11/21 16:38: POC Glucose 393 H 07/11/21 22:01: POC Glucose 403 H 07/12/21 04:20: Sodium 133 L, Potassium 4.0, Chloride 103, Carbon Dioxide 21.0, Anion Gap 9, BUN 44 H, Creatinine 1.47 H, Estim Creat Clear Calc 73.32, Est GFR (MDRD) Af Amer 68, Est GFR (MDRD) Non-Af 56 L, BUN/Creatinine Ratio 29.9 H, Glucose 350 H, Calcium 7.6 L, Total Bilirubin 0.40, AST 29, ALT 41, Alkaline Phosphatase 64, Total Protein 6.2 L, Albumin 1.8 L, Globulin 4.4 H, Albumin/Globulin Ratio 0.4 L 07/12/21 04:20: WBC 18.5 H, RBC 3.77 L, Hgb 11.1 L, Hct 31.8 L, MCV 84.4, MCH 29.4, MCHC 34.9, RDW Std Deviation 39.1, RDW Coeff of Preet 12.8, Plt Count 399, MPV 10.1, Neut % (Auto) Not Reportable, Absolute Neuts (auto) 15.7 H, Absolute Lymphs (auto) 1.85, Total Counted 100, Neutrophils % (Manual) 80 H, Band Neutrophils % 5, Lymphocytes % (Manual) 10 L, Monocytes % (Manual) 4, Metamyelocytes % 1, Diff Path Review May foll, Atypical Lymphocytes RARE, Platelet Estimate ADEQUATE, RBC Morphology NORM C+C 07/12/21 08:44: POC Glucose 319 H 07/12/21 11:23: POC Glucose 358 H 07/12/21 13:40: Random Vancomycin 16.7 H 07/12/21 16:12: POC Glucose 309 H Micro: Microbiology 07/09/21 18:10 Blood Culture (Wb) - Anticubital Right Blood Culture - Preliminary No growth in 48 hours. 07/09/21 19:15 Blood Culture (Wb) - Anticubital Left Blood Culture - Preliminary No growth in 48 hours. 07/09/21 21:50 Mucosa - Nose Respiratory Panel (PCR) - Final 07/09/21 19:47 Urine, Clean Catch Streptococcus pneumoniae Antigen (M - Final 07/09/21 19:47 Urine, Random Legionella Antigen - Final Physical Exam Const alert, oriented x3, no apparent distress and average body habitus General Appearance: cooperative, well kempt and well developed Orientation / Consciousness: awake, oriented to person, oriented to place and oriented to time HEENT normocephalic, head/scalp atraumatic and moist oral mucous membranes Head and Scalp: normocephalic Eyes PERRL, EOMs intact bilaterally and conjunctivae normal Neck nuchal rigidity, supple, no JVD, thyroid normal and no carotid bruits General: trachea midline Resp normal respiratory effort, no retractions, no use of accessory muscles and clear to auscultation bilaterally Resp Narrative: Scattered bilateral inspiratory rales are noted Auscultation: rales bilateral; Negative for rhonchi or wheezes Cardio regular rate, regular rhythm, S1 normal heart sound, S2 normal heart sound, no murmurs, no rub, no gallops and no clicks GI normal to inspection, nondistended, normoactive bowel sounds, soft to palpation, non-tender and non-distended Extremity no clubbing, cyanosis or edema Skin no rashes or lesions noted, no wounds, skin turgor normal and no jaundice General Skin Exam: no breakdown Neuro oriented x3, CN's II-XII intact bilaterally, no focal motor deficits and no sensory deficits noted Sensorium / Orientation: awake and alert Speech: speech normal Psych thought process normal and affect normal Assessment & Plan Assessment/Plan (1) COVID-19: PLAN: 1. COVID-19 pneumonia-continue present treatment per infectious diseases and pulmonary medicine, patient is currently getting Decadron, remdesivir, and Olumiant. Patient is also empirically getting vancomycin and Zosyn. #2 acute hypoxic respiratory failure secondary to #1-pulmonary medicine is participating in his care #3 possible pulmonary emboli-patient is currently fully anticoagulated with Lovenox #4 type 2 diabetes under poor control-blood sugars will continue to be monitored, blood sugars are still high at this time, critical care adjusted the patient's insulin dosage #5 essential hypertension-patient is currently not on his home lisinopril, blood pressures will continue to be monitored at this time, patient's creatinine is elevated indicating possible acute kidney injury, continue Norvasc for blood pressure control #6 elevated creatinine-possibly secondary to chronic kidney disease versus acute kidney injury, BMP will be monitored Charges/Coding Visit Charges Inpatient E&M: 14251 Subs Hosp L2
[2021-07-13] VITALS (40 sets, daily range): BP systolic 131–151; BP diastolic 87–101; PULSE 63–92; RESP 12–34; TEMP 36.4–36.8; O2SAT 22–99
[2021-07-13] MEDS: Ondansetron 4 MG/2 ML Vial IV (03:08)
[2021-07-13 04:15] LABS: Hematocrit 30.9 % (40-54); Hemoglobin 10.9 g/dL (13.0-16.5); Mean Corp Hgb Conc 35.3 g/dL (32-36); Mean Corpuscular Hgb 29.7 pg (27.0-32.0); Mean Corpuscular Volume 84.2 fL (80-94); Mean Platelet Vol. 9.5 fl (6.2-12.0); POSITIVE COUNT YES; POSITIVE MORPHOLOGY YES; Platelet Count 392 K/mm3 (150-450); RBC Distribution Width CV 12.7 % (11.6-14.6); RBC Distribution Width SD 39.2 fl (35.1-43.9); Red Blood Count 3.67 M/mm3 (4.6-6.2); White Blood Count 13.9 K/mm3 (4.4-11.0)
[2021-07-13 04:24] LABS: Differential Indicated MANUAL DIFF
[2021-07-13 04:43] LABS: Anion Gap 8 (5-15); BUN 34 mg/dL (7-18); BUN/Creat Ratio 29.1 RATIO (10-20); Calcium,Total 7.8 mg/dL (8.5-10.1); Chloride 104 mmol/L (98-107); Creatinine, Serum 1.17 mg/dL (0.70-1.30); EST Glomerular Filtration Rate 73 mL/min (>60); Est Glom Filt Rate - Afr Amer 88 mL/min (>60); Estimated Creatinine Clearance 92.12 ml/min; Glucose 205 mg/dL (74-106); Potassium 3.7 mmol/L (3.5-5.1); Sodium Level 134 mmol/L (136-145)
[2021-07-13] MEDS: Vancomycin IV 1,000 MG/200 ML BAG 200 MG IV (04:49)
[2021-07-13 04:57] LABS: Absolute Lymphocyte Count 0.83 X10^3/uL (0.83-4.51); Absolute Neutrophil Count 10.6 X10^3/uL (2.0-7.7); Lymphocyte 6 % (19-41); Monocyte 11 % (0-10); Myelocyte 6 % (0-0); Neutrophil-Segmented 76 % (47-70); Platelet Estimate ADEQUATE (ADEQ); Promyelocyte 1 % (0-0)
[2021-07-13 04:58] LABS: Red Cell Morphology NORM C+C NORMAL (NORM C&C)
[2021-07-13 05:10] LABS: Bedside Glucose 241 mg/dL (70-110)
--- NOTE | 2021-07-13 08:51 | PCM.PN.INT ---
Assessment & Plan Assessment/Plan (1) COVID-19: (2) Respiratory failure: QUALIFIERS: Chronicity: acute Respiratory failure complication: hypoxia Qualified Code(s): J96.01 - Acute respiratory failure with hypoxia PLAN: RECOMMENDATIONS: 1. Continue to wean FiO2 to maintain oxygen saturations at or above 90%. 2. Continue remdesivir to complete 5-day treatment course. 3. Continue Decadron to complete 10-day treatment course. 4. Monitor liver function daily 5. Continue baricitinib. 6. Continue Lantus and sliding scale coverage. 7. Continue Lovenox as ordered. IMPRESSIONS: 1. Acute hypoxemic respiratory failure secondary to COVID-19 pneumonia The patient presented to the hospital with approximately 10 days of progressive Covid symptoms, having tested positive on the second. Plan to continue current supportive measures. FiO2 will be weaned to maintain oxygen saturations at or above 90%. The patient will be continued on remdesivir as ordered. Liver and renal function will be monitored and showed no change in medications needed. The patient will complete a 10-day course of Decadron. Continue KELY inhibitor therapy today per ID recommendations. Given that the patient presented with an elevated D-dimer and suboptimal CTA chest, therapeutic Lovenox will be continued. Attempt discontinuation of BiPAP later today. Possibly challenge with Lasix to attempt even balance 2. Diabetic ketoacidosis Resolved. Increase Lantus and sliding scale insulin coverage. 3. Acute kidney injury Most likely prerenal in etiology. Slight improvement with volume expansion. Continue to monitor urine output for now. No current indication for renal replacement therapy. 4. Obesity/hypertension/GERD Complicates care, management, recovery and prognosis. Continue home medications as indicated. This note was generated with [employer] dictation software. It may contain incorrect words, spelling, and punctuation that were not noted in checking the note before signing. Subjective Subjective Patient did well overnight. However, this morning patient had a coughing fit and acutely desaturated. Patient was placed on BiPAP for rescue. Patient did report that he was improved following initiation of BiPAP therapy. However, patient has not been able to come off of BiPAP since that time. Objective Data Objective Data Vital Signs: Vital Signs Temp Pulse Resp BP Pulse Ox 36.8 C 72 17 139/96 H 95 07/13/21 06:00 07/13/21 07:11 07/13/21 07:11 07/13/21 06:00 07/13/21 07:11 Oxygen Flow Rate (L/min) 60 Oxygen Delivery Method Bi-pap Weight: 106.1 kg Body Mass Index (BMI) 31.1 Intake & Output: Intake and Output for Last 24 Hours 07/11/21 07/12/21 07/13/21 23:59 23:59 23:59 Intake Total 1372.5 / 1772.5 2470 / 2470 500 / 500 Output Total 2800 / 2800 2200 / 2200 Balance -1427.5 / -1027.5 270 / 270 500 / 500 Lab / Micro Data Result Diagrams: 07/13/21 04:00 07/13/21 04:00 Labs: Laboratory Results - last 24 hr 07/12/21 08:44: POC Glucose 319 H 07/12/21 11:23: POC Glucose 358 H 07/12/21 13:40: Random Vancomycin 16.7 H 07/12/21 16:12: POC Glucose 309 H 07/12/21 22:05: POC Glucose 241 H 07/13/21 04:00: WBC 13.9 H, RBC 3.67 L, Hgb 10.9 L, Hct 30.9 L, MCV 84.2, MCH 29.7, MCHC 35.3, RDW Std Deviation 39.2, RDW Coeff of Preet 12.7, Plt Count 392, MPV 9.5, Neut % (Auto) Not Reportable, Absolute Neuts (auto) 10.6 H, Absolute Lymphs (auto) 0.83, Neutrophils % (Manual) 76 H, Lymphocytes % (Manual) 6 L, Monocytes % (Manual) 11 H, Myelocytes % 6 H, Promyelocytes % 1 H, Diff Path Review February, Platelet Estimate ADEQUATE, RBC Morphology NORM C+C 07/13/21 04:00: Sodium 134 L, Potassium 3.7, Chloride 104, Carbon Dioxide 22.0, Anion Gap 8, BUN 34 H, Creatinine 1.17, Estim Creat Clear Calc 92.12, Est GFR (MDRD) Af Amer 88, Est GFR (MDRD) Non-Af 73, BUN/Creatinine Ratio 29.1 H, Glucose 205 H, Calcium 7.8 L Micro: Microbiology 07/09/21 18:10 Blood Culture (Wb) - Anticubital Right Blood Culture - Preliminary No growth in 48 hours. 07/09/21 19:15 Blood Culture (Wb) - Anticubital Left Blood Culture - Preliminary No growth in 48 hours. 07/09/21 21:50 Mucosa - Nose Respiratory Panel (PCR) - Final 07/09/21 19:47 Urine, Clean Catch Streptococcus pneumoniae Antigen (M - Final 07/09/21 19:47 Urine, Random Legionella Antigen - Final Physical Exam Const alert and oriented x3 General Appearance: cooperative and on BiPAP Nutritional Appearance: obese HEENT normocephalic, head/scalp atraumatic, hearing grossly normal bilaterally and external ears normal Eyes PERRL, EOMs intact bilaterally, conjunctivae normal and no scleral icterus Lymph Lymphatic: no lymphadenopathy noted Chest inspection of chest normal Chest: symmetrical chest wall rise; Negative for crepitus Resp Resp Narrative: Cough with deep inhalation Auscultation: diminished lung sounds; Negative for rales, rhonchi or wheezes Cardio regular rate, regular rhythm, S1 normal heart sound, S2 normal heart sound, no murmurs, no rub and no gallops GI normal to inspection, nondistended, normoactive bowel sounds Extremity normal to inspection General Extremity: edema bilateral (1+) lower extremity; Negative for clubbing or cyanosis Peripheral Pulses: Yes pulses 2+ throughout Skin no rashes or lesions noted Neuro oriented x3, CN's II-XII intact bilaterally, moves all extremities and no focal motor deficits Psych mental status grossly normal, thought process normal, cooperative and affect normal Charges/Coding Visit Charges Inpatient E&M: 06783 Subs Hosp L3
[2021-07-13] MEDS: Insulin Lispro 100 UNIT/ML INSULN.PEN SC (09:52)
[2021-07-13] MEDS: Enoxaparin 100 MG/ML Syringe SC ×2 (09:53→21:45)
[2021-07-13] MEDS: dexAMETHasone 10 MG/ML Vial 6 MG IV (09:53)
[2021-07-13] MEDS: Pantoprazole Sodium 40 MG Tablet PO ×2 (09:54→21:45)
[2021-07-13] MEDS: amLODIPine 5 MG Tablet PO (09:54)
--- NOTE | 2021-07-13 11:10 | RAD_ITS ---
STUDY: X-RAY CHEST REASON FOR EXAM: Male, 40 years old. Worsening shortness of breath. TECHNIQUE: Single frontal view of the chest. COMPARISON: 07/09/2021. FINDINGS: Low volume inspiration with diffuse interstitial pattern and patchy opacities in both lung clements, right greater than left, relatively unchanged, given the technique. There is no demonstrated pleural abnormality. Normal size heart. Normal mediastinum and kourtney. Normal visualized pulmonary arteries. Normal visualized aortic arch and descending thoracic aorta. Normal visualized thoracic spine. Normal visualized ribs, clavicles, and shoulders. There is no demonstrated abnormality of the visualized soft tissue structures of the upper abdomen. RAD/Chest 1 View (Portable) IMPRESSION: Stable chest with no new finding. No acute abnormality. Electronically Signed: Gm Franklin MD at 13:02 EDT , Service support ,
[2021-07-13 11:21] LABS: Bedside Glucose 157 mg/dL (70-110)
[2021-07-13 11:46] LABS: Bedside Glucose 119 mg/dL (70-110)
[2021-07-13] MEDS: Furosemide 20 MG/2 ML VIAL IV ×2 (11:59→17:35)
--- NOTE | 2021-07-13 12:33 | CASEMGMT ---
Social Work SW attended ICU rounds. Pt Stefani on conference call. Stefani upset and crying during rounds, SW spoke with her and offered support and encouraged her to reach out to family/friends to come to the home to provide support. Phone call to pt Stefani after rounds. Pt lives at home with Stefani and three children ages 15.12 and 1. Stefani states her mother is now with her and she is feeling better. SW offered support. Stefani requesting to speak with the nurse today for an update and if it is possible she visits. TOY notified nursing and requested phone call to Stefani when nurse is able. Stefani made aware that SW is available if she has any further needs. HUGH Dukes
[2021-07-13 13:24] LABS: Pathologist Review Reviewed
[2021-07-13 13:25] LABS: Pathologist Review Reviewed
[2021-07-13 13:29] LABS: Pathologist Review Reviewed
--- NOTE | 2021-07-13 15:45 | PCM.PN.ID ---
Physical Exam Narrative Some clear sputum, breathing better, no fever Const alert and no apparent distress General Appearance: cooperative Resp clear to auscultation bilaterally Auscultation: diminished lung sounds Cardio regular rate and regular rhythm GI normal to inspection, nondistended, normoactive bowel sounds Skin no rashes or lesions noted ID ID: Route of nutrition/ use of supplements: [] Nutritional Intake: [] IV Site: [] Osuna Catheter: [] Assessment & Plan Assessment/Plan (1) COVID-19: PLAN: Sx started 07/01. and 3 children also sick. All unvaccinated. On bipap/airvo. On dex, remdesivir, and given tocilizumab 07/10. On empiric vanc/zosyn, cxs neg, will stop abx today. On therapeutic lovenox for PEs. Quarantine until 07/21. Recommend vaccine after discharge. Will follow (2) Pulmonary emboli: (3) Respiratory failure: QUALIFIERS: Chronicity: acute Respiratory failure complication: hypoxia Qualified Code(s): J96.01 - Acute respiratory failure with hypoxia
[2021-07-13 16:41] LABS: Bedside Glucose 149 mg/dL (70-110)
[2021-07-13] MEDS: guaiFENesin 10 ML UDC (200MG/10ML) PO (18:44)
--- NOTE | 2021-07-13 19:42 | PCM.PN.HOSP ---
Subjective Subjective Patient was seen and examined today, he remains on Airvo, he does not complain of any shortness of breath at rest. Patient does not appear dyspneic at the time of my examination at rest. Objective Data Objective Data Vital Signs: Vital Signs Temp Pulse Resp BP Pulse Ox 97.6 F L 76 23 H 137/94 H 95 07/13/21 07:00 07/13/21 19:20 07/13/21 19:20 07/13/21 19:00 07/13/21 19:20 Oxygen Flow Rate (L/min) 60 Oxygen Delivery Method Bi-pap Weight: 106.1 kg Body Mass Index (BMI) 31.1 Intake & Output: Intake and Output for Last 24 Hours 07/11/21 07/12/21 07/13/21 23:59 23:59 23:59 Intake Total 1372.5 / 1772.5 2470 / 2470 720 / 720 Output Total 2800 / 2800 2200 / 2200 1500 / 1500 Balance -1427.5 / -1027.5 270 / 270 -780 / -780 Lab / Micro Data Result Diagrams: 07/13/21 04:00 07/13/21 04:00 Labs: Laboratory Results - last 24 hr 07/11/21 08:45: Diff Path Review Reviewed 07/12/21 04:20: Diff Path Review Reviewed 07/12/21 22:05: POC Glucose 241 H 07/13/21 04:00: WBC 13.9 H, RBC 3.67 L, Hgb 10.9 L, Hct 30.9 L, MCV 84.2, MCH 29.7, MCHC 35.3, RDW Std Deviation 39.2, RDW Coeff of Preet 12.7, Plt Count 392, MPV 9.5, Neut % (Auto) Not Reportable, Absolute Neuts (auto) 10.6 H, Absolute Lymphs (auto) 0.83, Neutrophils % (Manual) 76 H, Lymphocytes % (Manual) 6 L, Monocytes % (Manual) 11 H, Myelocytes % 6 H, Promyelocytes % 1 H, Diff Path Review Reviewed, Platelet Estimate ADEQUATE, RBC Morphology NORM C+C 07/13/21 04:00: Sodium 134 L, Potassium 3.7, Chloride 104, Carbon Dioxide 22.0, Anion Gap 8, BUN 34 H, Creatinine 1.17, Estim Creat Clear Calc 92.12, Est GFR (MDRD) Af Amer 88, Est GFR (MDRD) Non-Af 73, BUN/Creatinine Ratio 29.1 H, Glucose 205 H, Calcium 7.8 L 07/13/21 08:01: POC Glucose 157 H 07/13/21 11:27: POC Glucose 119 H 07/13/21 16:33: POC Glucose 149 H Micro: Microbiology 07/09/21 18:10 Blood Culture (Wb) - Anticubital Right Blood Culture - Preliminary No growth in 48 hours. 07/09/21 19:15 Blood Culture (Wb) - Anticubital Left Blood Culture - Preliminary No growth in 48 hours. 07/09/21 21:50 Mucosa - Nose Respiratory Panel (PCR) - Final 07/09/21 19:47 Urine, Clean Catch Streptococcus pneumoniae Antigen (M - Final 07/09/21 19:47 Urine, Random Legionella Antigen - Final Radiography Diagnostic Testing: Radiology Impression Chest X-Ray 07/13/21 11:10 IMPRESSION: Stable chest with no new finding. No acute abnormality. Electronically Signed: Gm Franklin MD at 13:02 EDT , Service support , Physical Exam Narrative alert, oriented x3, no apparent distress and average body habitus General Appearance: cooperative, well kempt and well developed Orientation / Consciousness: awake, oriented to person, oriented to place and oriented to time HEENT normocephalic, head/scalp atraumatic and moist oral mucous membranes Head and Scalp: normocephalic Eyes PERRL, EOMs intact bilaterally and conjunctivae normal Neck nuchal rigidity, supple, no JVD, thyroid normal and no carotid bruits General: trachea midline Resp normal respiratory effort, no retractions, no use of accessory muscles and clear to auscultation bilaterally Resp Narrative: Scattered bilateral inspiratory rales are noted Auscultation: rales bilateral; Negative for rhonchi or wheezes Cardio regular rate, regular rhythm, S1 normal heart sound, S2 normal heart sound, no murmurs, no rub, no gallops and no clicks GI normal to inspection, nondistended, normoactive bowel sounds, soft to palpation, non-tender and non-distended Extremity no clubbing, cyanosis or edema Skin no rashes or lesions noted, no wounds, skin turgor normal and no jaundice General Skin Exam: no breakdown Neuro oriented x3, CN's II-XII intact bilaterally, no focal motor deficits and no sensory deficits noted Sensorium / Orientation: awake and alert Speech: speech normal Psych thought process normal and affect normal Assessment & Plan Assessment/Plan (1) COVID-19: PLAN: 1. COVID-19 pneumonia-continue present treatment per infectious diseases and pulmonary medicine, patient is currently getting Decadron, remdesivir, and Olumiant. Patient is no longer on vancomycin and Zosyn. #2 acute hypoxic respiratory failure secondary to #1-pulmonary medicine is participating in his care #3 possible pulmonary emboli-patient is currently fully anticoagulated with Lovenox #4 type 2 diabetes under poor control as outpatient-blood sugars will continue to be monitored, blood sugars are under adequate control at this time #5 essential hypertension-patient is currently on Norvasc Prognosis is guarded at this time Charges/Coding Visit Charges Inpatient E&M: 44436 Subs Hosp L2
[2021-07-14] VITALS (34 sets, daily range): BP systolic 118–155; BP diastolic 81–96; PULSE 71–116; RESP 14–31; TEMP 36.2–36.6; O2SAT 70–100
[2021-07-14 00:31] LABS: Bedside Glucose 94 mg/dL (70-110)
[2021-07-14] MEDS: Ondansetron 4 MG/2 ML Vial IV (04:15)
[2021-07-14 04:39] LABS: Hematocrit 33.8 % (40-54); Hemoglobin 11.6 g/dL (13.0-16.5); Mean Corp Hgb Conc 34.3 g/dL (32-36); Mean Corpuscular Hgb 29.4 pg (27.0-32.0); Mean Corpuscular Volume 85.6 fL (80-94); POSITIVE COUNT YES; POSITIVE MORPHOLOGY YES; Platelet Count 465 K/mm3 (150-450); RBC Distribution Width CV 12.9 % (11.6-14.6); Red Blood Count 3.95 M/mm3 (4.6-6.2); White Blood Count 15.5 K/mm3 (4.4-11.0)
[2021-07-14 04:50] LABS: Anion Gap 8 (5-15); BUN 29 mg/dL (7-18); Calcium,Total 8.1 mg/dL (8.5-10.1); Chloride 105 mmol/L (98-107); Creatinine, Serum 1.21 mg/dL (0.70-1.30); EST Glomerular Filtration Rate 70 mL/min (>60); Est Glom Filt Rate - Afr Amer 85 mL/min (>60); Estimated Creatinine Clearance 89.07 ml/min; Glucose 98 mg/dL (74-106); Potassium 3.4 mmol/L (3.5-5.1); Sodium Level 137 mmol/L (136-145)
[2021-07-14 05:28] LABS: Differential Indicated MANUAL DIFF
[2021-07-14 05:36] LABS: Total Cells Counted 100 (MANUAL DIFF)
[2021-07-14 05:37] LABS: Eosinophil 1 % (0-5); Lymphocyte 15 % (19-41); Metamyelocyte 1 % (0-1); Monocyte 10 % (0-10); Myelocyte 4 % (0-0); Neutrophil-Band 1 % (0-5); Neutrophil-Segmented 68 % (47-70); Platelet Estimate ADEQUATE (ADEQ)
[2021-07-14 05:38] LABS: Absolute Neutrophil Count 10.7 X10^3/uL (2.0-7.7); Lymphocyte # 2.32 X10^3/ul (0.83-4.51); Neutrophil # 10.67 X10^3/uL (2.7-7.7); Red Cell Morphology NORM C+C NORMAL (NORM C&C)
[2021-07-14 05:39] LABS: Absolute Lymphocyte Count 2.32 X10^3/uL (0.83-4.51)
[2021-07-14] MEDS: Potassium Chloride 10mEq/100mL 10 MEQ/100 ML IV.SOLN. 100 MEQ IV BOLUS ×4 (06:15→10:53)
[2021-07-14 08:41] LABS: Bedside Glucose 96 mg/dL (70-110)
[2021-07-14] MEDS: dexAMETHasone 10 MG/ML Vial 6 MG IV (08:44)
[2021-07-14] MEDS: Pantoprazole Sodium 40 MG Tablet PO ×2 (08:44→21:02)
[2021-07-14] MEDS: Enoxaparin 100 MG/ML Syringe SC (08:44)
[2021-07-14] MEDS: Furosemide 20 MG/2 ML VIAL IV ×2 (08:45→17:11)
[2021-07-14] MEDS: amLODIPine 5 MG Tablet PO (08:45)
--- NOTE | 2021-07-14 10:38 | PCM.PN.INT ---
Assessment & Plan Assessment/Plan (1) COVID-19: (2) Respiratory failure: QUALIFIERS: Chronicity: acute Respiratory failure complication: hypoxia Qualified Code(s): J96.01 - Acute respiratory failure with hypoxia PLAN: RECOMMENDATIONS: 1. Continue to wean FiO2 to maintain oxygen saturations at or above 90%. 2. Completed remdesivir. Continue Decadron and Olumiant to complete courses 3. Aggressive pulmonary toileting 4. Monitor liver function daily 5. Decrease Lantus. Continue sliding scale 6. Increase activity as tolerated 7. Continue therapeutic anticoagulation as ordered. IMPRESSIONS: 1. Acute hypoxemic respiratory failure secondary to COVID-19 pneumonia The patient presented to the hospital with approximately 10 days of progressive Covid symptoms, having tested positive on the second. Plan to continue current supportive measures. FiO2 will be weaned to maintain oxygen saturations at or above 90%. The patient will be continued on remdesivir as ordered. Liver and renal function will be monitored and showed no change in medications needed. The patient will complete a 10-day course of Decadron. Continue KELY inhibitor therapy today per ID recommendations. Given that the patient presented with an elevated D-dimer and suboptimal CTA chest, therapeutic anticoagulation will be continued. Aggressive pulmonary toileting ordered. 2. Diabetic ketoacidosis Resolved. Patient with very poor p.o. intake. Will place on very low dose Lantus and sliding scale insulin coverage given marginal p.o. intake. 3. Acute kidney injury Most likely prerenal in etiology. Slight improvement with volume expansion. Continue to monitor urine output for now. No current indication for renal replacement therapy. 4. Obesity/hypertension/GERD Complicates care, management, recovery and prognosis. Continue home medications as indicated. Subjective Subjective Patient did okay overnight. Patient did have an episode overnight where the BiPAP had to be removed and patient had significant productive cough. This was sent for culture. Patient did not have any fevers. Patient subjectively felt slightly improved this morning. No pain was reported. Patient is not having any nausea or vomiting. Patient did have his Lantus held secondary to decreased blood sugars. Objective Data Objective Data Vital Signs: Vital Signs Temp Pulse Resp BP Pulse Ox 36.4 C L 97 29 H 145/90 H 93 07/14/21 08:00 07/14/21 10:00 07/14/21 10:00 07/14/21 10:07/14/21 10:00 Oxygen Flow Rate (L/min) 60 Oxygen Delivery Method Airvo Weight: 106 kg Body Mass Index (BMI) 31.1 Intake & Output: Intake and Output for Last 24 Hours 07/12/21 07/13/21 07/14/21 23:59 23:59 23:59 Intake Total 2470 / 2470 920 / 920 690 / 690 Output Total 2200 / 2200 2100 / 2100 850 / 850 Balance 270 / 270 -1180 / -1180 -160 / -160 Lab / Micro Data Result Diagrams: 07/14/21 03:59 07/14/21 03:59 Labs: Laboratory Results - last 24 hr 07/11/21 08:45: Diff Path Review Reviewed 07/12/21 04:20: Diff Path Review Reviewed 07/13/21 04:00: Diff Path Review Reviewed 07/13/21 08:01: POC Glucose 157 H 07/13/21 11:27: POC Glucose 119 H 07/13/21 16:33: POC Glucose 149 H 07/13/21 21:34: POC Glucose 94 07/14/21 03:59: WBC 15.5 H, RBC 3.95 L, Hgb 11.6 L, Hct 33.8 L, MCV 85.6, MCH 29.4, MCHC 34.3, RDW Std Deviation 40.0, RDW Coeff of Preet 12.9, Plt Count 465 H, MPV 10.0, Neut % (Auto) Not Reportable, Absolute Neuts (auto) 10.7 H, Absolute Lymphs (auto) 2.32, Total Counted 100, Neutrophils % (Manual) 68, Band Neutrophils % 1, Lymphocytes % (Manual) 15 L, Monocytes % (Manual) 10, Eosinophils % (Manual) 1, Metamyelocytes % 1, Myelocytes % 4 H, Diff Path Review May foll, Platelet Estimate ADEQUATE, RBC Morphology NORM C+C 07/14/21 03:59: Sodium 137, Potassium 3.4 L, Chloride 105, Carbon Dioxide 24.0, Anion Gap 8, BUN 29 H, Creatinine 1.21, Estim Creat Clear Calc 89.07, Est GFR (MDRD) Af Amer 85, Est GFR (MDRD) Non-Af 70, BUN/Creatinine Ratio 24.0 H, Glucose 98, Calcium 8.1 L 07/14/21 04:09: POC Glucose 96 Micro: Microbiology 07/09/21 18:10 Blood Culture (Wb) - Anticubital Right Blood Culture - Preliminary No growth in 48 hours. 07/09/21 19:15 Blood Culture (Wb) - Anticubital Left Blood Culture - Preliminary No growth in 48 hours. 07/09/21 21:50 Mucosa - Nose Respiratory Panel (PCR) - Final 07/09/21 19:47 Urine, Clean Catch Streptococcus pneumoniae Antigen (M - Final 07/09/21 19:47 Urine, Random Legionella Antigen - Final Radiography Diagnostic Testing: Radiology Impression Chest X-Ray 07/13/21 11:10 IMPRESSION: Stable chest with no new finding. No acute abnormality. Electronically Signed: Gm Franklin MD at 13:02 EDT , Service support , Physical Exam Const alert and oriented x3 General Appearance: cooperative and on BiPAP Nutritional Appearance: obese HEENT normocephalic, head/scalp atraumatic, hearing grossly normal bilaterally and external ears normal Eyes PERRL, EOMs intact bilaterally, conjunctivae normal and no scleral icterus Lymph Lymphatic: no lymphadenopathy noted Chest inspection of chest normal Chest: symmetrical chest wall rise; Negative for crepitus Resp Resp Narrative: Cough with deep inhalation Auscultation: diminished lung sounds; Negative for rales, rhonchi or wheezes Cardio regular rate, regular rhythm, S1 normal heart sound, S2 normal heart sound, no murmurs, no rub and no gallops GI normal to inspection, nondistended, normoactive bowel sounds Extremity normal to inspection General Extremity: edema bilateral (1+) lower extremity; Negative for clubbing or cyanosis Peripheral Pulses: Yes pulses 2+ throughout Skin no rashes or lesions noted Neuro oriented x3, CN's II-XII intact bilaterally, moves all extremities and no focal motor deficits Psych mental status grossly normal, thought process normal, cooperative and affect normal Charges/Coding Visit Charges Inpatient E&M: 98390 Subs Hosp L3
[2021-07-14 11:20] LABS: Bedside Glucose 86 mg/dL (70-110)
[2021-07-14 11:20] LABS: Bedside Glucose 65 mg/dL (70-110)
[2021-07-14] MEDS: Potassium Chloride Oral Tablet 20 MEQ 40 MEQ PO (12:26)
[2021-07-14 12:50] LABS: Bedside Glucose 148 mg/dL (70-110)
[2021-07-14 13:13] LABS: Pathologist Review Reviewed
--- NOTE | 2021-07-14 16:52 | PN.HOSP_ITS ---
Subjective Subjective Patient was seen and examined. He remains on Airvo. No other acute events overnight. Objective Data Objective Data Vital Signs: Vital Signs Temp Pulse Resp BP Pulse Ox 97.6 F L 84 19 H 129/83 H 96 07/14/21 12:00 07/14/21 15:00 07/14/21 15:00 07/14/21 15:00 07/14/21 15:00 Oxygen Flow Rate (L/min) 60 Oxygen Delivery Method Airvo Weight: 106 kg Body Mass Index (BMI) 31.1 Intake & Output: Intake and Output for Last 24 Hours 07/12/21 07/13/21 07/14/21 23:59 23:59 23:59 Intake Total 2470 / 2470 920 / 920 1640 / 1640 Output Total 2200 / 2200 2100 / 2100 2150 / 2150 Balance 270 / 270 -1180 / -1180 -510 / -510 Lab / Micro Data Result Diagrams: 07/14/21 03:59 07/14/21 03:59 Labs: Laboratory Results - last 24 hr 07/13/21 21:34: POC Glucose 94 07/14/21 03:59: WBC 15.5 H, RBC 3.95 L, Hgb 11.6 L, Hct 33.8 L, MCV 85.6, MCH 29.4, MCHC 34.3, RDW Std Deviation 40.0, RDW Coeff of Preet 12.9, Plt Count 465 H, MPV 10.0, Neut % (Auto) Not Reportable, Absolute Neuts (auto) 10.7 H, Absolute Lymphs (auto) 2.32, Total Counted 100, Neutrophils % (Manual) 68, Band Neutrophils % 1, Lymphocytes % (Manual) 15 L, Monocytes % (Manual) 10, Eosinophils % (Manual) 1, Metamyelocytes % 1, Myelocytes % 4 H, Diff Path Review Reviewed, Platelet Estimate ADEQUATE, RBC Morphology NORM C+C 07/14/21 03:59: Sodium 137, Potassium 3.4 L, Chloride 105, Carbon Dioxide 24.0, Anion Gap 8, BUN 29 H, Creatinine 1.21, Estim Creat Clear Calc 89.07, Est GFR (MDRD) Af Amer 85, Est GFR (MDRD) Non-Af 70, BUN/Creatinine Ratio 24.0 H, Glucose 98, Calcium 8.1 L 07/14/21 04:09: POC Glucose 96 07/14/21 08:38: POC Glucose 65 L 07/14/21 08:54: POC Glucose 86 07/14/21 12:25: POC Glucose 148 H Micro: Microbiology 07/14/21 04:00 Sputum, Expectorated/Coughed Gram Stain - Final 07/09/21 18:10 Blood Culture (Wb) - Anticubital Right Blood Culture - Preliminary No growth in 48 hours. 07/09/21 19:15 Blood Culture (Wb) - Anticubital Left Blood Culture - Preliminary No growth in 48 hours. 07/09/21 21:50 Mucosa - Nose Respiratory Panel (PCR) - Final 07/09/21 19:47 Urine, Clean Catch Streptococcus pneumoniae Antigen (M - Final 07/09/21 19:47 Urine, Random Legionella Antigen - Final Physical Exam Narrative Physical exam: General: Alert, Oriented x3, Cooperative, on Airvo HEENT: Atraumatic Oral: Moist Mucosa Neck: Supple Lungs: Diminished to auscultation Cardiovascular: HS I+II, regular, no murmurs Abdomen: Bowel Sounds Present, Soft, Non Tender Extremities: Bilateral pedal edema +2 Assessment & Plan Assessment/Plan (1) COVID-19: (2) Respiratory failure: QUALIFIERS: Chronicity: acute Respiratory failure complication: hypoxia Qualified Code(s): J96.01 - Acute respiratory failure with hypoxia (3) Acute respiratory failure with hypoxia: (4) AYUSH (acute kidney injury): (5) DKA (diabetic ketoacidoses): QUALIFIERS: Diabetes mellitus complication detail: without coma Diabetes mellitus type: type 2 Qualified Code(s): E11.10 - Type 2 diabetes mellitus with ketoacidosis without coma (6) Pulmonary emboli: PLAN: 1. Acute hypoxic respiratory failure secondary to COVID-19 pneumonia Continue on Airvo, Decadron, Olumiant, breathing treatments ID and pulmonology following 2. Elevated D-dimer, concern for possible acute PE, patient is on apixaban 3. Hypokalemia, replaced, recheck in a.m. 4. Type II DM, blood sugars uncontrolled, continue increased dose of Lantus as well as insulin sliding scale 5. Hypertension, controlled, continue amlodipine Charges/Coding Visit Charges Inpatient E&M: [id number] [facility], [place] Hosp L3
[2021-07-14] MEDS: Insulin Lispro 100 UNIT/ML INSULN.PEN SC ×2 (17:11→21:04)
[2021-07-14 18:26] LABS: Bedside Glucose 324 mg/dL (70-110)
--- NOTE | 2021-07-14 20:15 | PCS.PANDOC ---
PANDEMIC DOCUMENTATION INITIATED: Date: 06/15/2021 Time: 190
[2021-07-14] MEDS: APIXABAN 5 MG TABLET 10 MG PO (21:03)
[2021-07-14 21:20] LABS: Bedside Glucose 363 mg/dL (70-110)
[2021-07-15] VITALS (37 sets, daily range): BP systolic 116–169; BP diastolic 80–117; PULSE 63–97; RESP 14–27; TEMP 35.9–36.6; O2SAT 84–98
--- NOTE | 2021-07-15 02:30 | NURSING ---
pt desated after voiding. po 84%. pt used is but sats still remained 84%. resp notiified.
[2021-07-15 03:29] LABS: Hematocrit 31.2 % (40-54); Hemoglobin 10.5 g/dL (13.0-16.5); Mean Corp Hgb Conc 33.7 g/dL (32-36); Mean Corpuscular Hgb 28.9 pg (27.0-32.0); Mean Platelet Vol. 9.8 fl (6.2-12.0); Platelet Count 428 K/mm3 (150-450); RBC Distribution Width CV 12.7 % (11.6-14.6); RBC Distribution Width SD 40.1 fl (35.1-43.9); Red Blood Count 3.63 M/mm3 (4.6-6.2); White Blood Count 12.9 K/mm3 (4.4-11.0)
[2021-07-15 03:44] LABS: Anion Gap 6 (5-15); BUN 31 mg/dL (7-18); BUN/Creat Ratio 30.1 RATIO (10-20); Calcium,Total 8.1 mg/dL (8.5-10.1); Chloride 100 mmol/L (98-107); Creatinine, Serum 1.03 mg/dL (0.70-1.30); EST Glomerular Filtration Rate 85 mL/min (>60); Est Glom Filt Rate - Afr Amer 103 mL/min (>60); Estimated Creatinine Clearance 104.64 ml/min; Glucose 291 mg/dL (74-106); Magnesium 1.8 mg/dL (1.6-2.6); Phosphorus 2.8 mg/dL (2.5-4.9); Potassium 4.2 mmol/L (3.5-5.1); Sodium Level 131 mmol/L (136-145)
[2021-07-15] MEDS: 0.9% Saline Lock 10 ML Syringe IV (06:40)
[2021-07-15] MEDS: Furosemide 40 MG/4 ML Vial IV (06:40)
[2021-07-15] MEDS: Insulin Lispro 100 UNIT/ML INSULN.PEN SC ×4 (06:40→20:25)
[2021-07-15 06:56] LABS: Bedside Glucose 271 mg/dL (70-110)
--- NOTE | 2021-07-15 07:36 | PN.CC_ITS ---
Assessment & Plan Assessment/Plan (1) COVID-19: (2) Respiratory failure: QUALIFIERS: Chronicity: acute Respiratory failure complication: hypoxia Qualified Code(s): J96.01 - Acute respiratory failure with hypoxia PLAN: RECOMMENDATIONS: 1. Continue to wean FiO2 to maintain oxygen saturations at or above 90%. 2. Completed remdesivir. Continue Decadron (07/19/2021) and Olumiant (07/23/2021) to complete courses 3. Aggressive pulmonary toileting 4. Monitor liver function daily 5. Increase Lantus. Continue sliding scale 6. Increase activity as tolerated 7. Continue therapeutic anticoagulation as ordered. IMPRESSIONS: 1. Acute hypoxemic respiratory failure secondary to COVID-19 pneumonia The patient presented to the hospital with approximately 10 days of progressive Covid symptoms, having tested positive on the second. Plan to continue current supportive measures. FiO2 will be weaned to maintain oxygen saturations at or above 90%. The patient will be continued on remdesivir as ordered. Liver and renal function will be monitored and showed no change in medications needed. The patient will complete a 10-day course of Decadron. Continue KELY inhibitor therapy today per ID recommendations. Given that the patient presented with an elevated D-dimer and suboptimal CTA chest, therapeutic anticoagulation will be continued. Aggressive pulmonary toileting ordered. Recheck LFTs tomorrow. Diuretic challenge today. If patient able to tolerate nasal cannula by the end of the day, possibly transition to PCU. 2. Diabetic ketoacidosis Resolved. Patient with very poor p.o. intake. Will place on very low dose Lantus and sliding scale insulin coverage given marginal p.o. intake. 3. Acute kidney injury Resolved. Most likely prerenal in etiology. Slight improvement with volume expansion. Continue to monitor urine output for now. No current indication for renal replacement therapy. 4. Obesity/hypertension/GERD Complicates care, management, recovery and prognosis. Continue home medications as indicated. Subjective Subjective Patient did well overnight. Patient was able to tolerate Airvo through the even ing, but did have some increased FiO2 requirements. Patient states that he slept great and feels significantly improved today compared to yesterday. Patient continues to have a productive cough. Objective Data Objective Data Vital Signs: Vital Signs Temp Pulse Resp BP Pulse Ox 36.6 C 77 25 H 150/87 H 91 07/15/21 03:00 07/15/21 07:00 07/15/21 07:00 07/15/21 07:00 07/15/21 07:00 Oxygen Flow Rate (L/min) 60 Oxygen Delivery Method Airvo Weight: 105.1 kg Body Mass Index (BMI) 31.1 Intake & Output: Intake and Output for Last 24 Hours 07/13/21 07/14/21 07/15/21 23:59 23:59 23:59 Intake Total 920 / 920 2190 / 2190 Output Total 2100 / 2100 3550 / 3550 1200 / 1200 Balance -1180 / -1180 -1360 / -1360 -1200 / -1200 Lab / Micro Data Result Diagrams: 07/15/21 03:20 07/15/21 03:20 Labs: Laboratory Results - last 24 hr 07/14/21 03:59: Diff Path Review Reviewed 07/14/21 04:09: POC Glucose 96 07/14/21 08:38: POC Glucose 65 L 07/14/21 08:54: POC Glucose 86 07/14/21 12:25: POC Glucose 148 H 07/14/21 17:00: POC Glucose 324 H 07/14/21 21:01: POC Glucose 363 H 07/15/21 03:20: WBC 12.9 H, RBC 3.63 L, Hgb 10.5 L, Hct 31.2 L, MCV 86.0, MCH 28.9, MCHC 33.7, RDW Std Deviation 40.1, RDW Coeff of Preet 12.7, Plt Count 428, MPV 9.8 07/15/21 03:20: Sodium 131 L, Potassium 4.2, Chloride 100, Carbon Dioxide 25.0, Anion Gap 6, BUN 31 H, Creatinine 1.03, Estim Creat Clear Calc 104.64, Est GFR (MDRD) Af Amer 103, Est GFR (MDRD) Non-Af 85, BUN/Creatinine Ratio 30.1 H, Glucose 291 H, Calcium 8.1 L, Phosphorus 2.8, Magnesium 1.8 07/15/21 06:36: POC Glucose 271 H Micro: Microbiology 07/14/21 04:00 Sputum, Expectorated/Coughed Gram Stain - Final 07/09/21 18:10 Blood Culture (Wb) - Anticubital Right Blood Culture - Preliminary No growth in 48 hours. 07/09/21 19:15 Blood Culture (Wb) - Anticubital Left Blood Culture - Preliminary No growth in 48 hours. 07/09/21 21:50 Mucosa - Nose Respiratory Panel (PCR) - Final 07/09/21 19:47 Urine, Clean Catch Streptococcus pneumoniae Antigen (M - Final 07/09/21 19:47 Urine, Random Legionella Antigen - Final Physical Exam Const alert and oriented x3 General Appearance: cooperative and on BiPAP Nutritional Appearance: obese HEENT normocephalic, head/scalp atraumatic, hearing grossly normal bilaterally and external ears normal Eyes PERRL, EOMs intact bilaterally, conjunctivae normal and no scleral icterus Lymph Lymphatic: no lymphadenopathy noted Chest inspection of chest normal Chest: symmetrical chest wall rise; Negative for crepitus Resp Resp Narrative: Cough with deep inhalation Auscultation: diminished lung sounds; Negative for rales, rhonchi or wheezes Cardio regular rate, regular rhythm, S1 normal heart sound, S2 normal heart sound, no murmurs, no rub and no gallops GI normal to inspection, nondistended, normoactive bowel sounds Extremity normal to inspection General Extremity: Negative for clubbing, cyanosis or edema Peripheral Pulses: Yes pulses 2+ throughout Skin no rashes or lesions noted Neuro oriented x3, CN's II-XII intact bilaterally, moves all extremities and no focal motor deficits Psych mental status grossly normal, thought process normal, cooperative and affect normal Charges/Coding Visit Charges Inpatient E&M: 71933 Subs Hosp L3
[2021-07-15] MEDS: Lisinopril 20 MG Tablet PO (09:35)
[2021-07-15] MEDS: APIXABAN 5 MG TABLET 10 MG PO ×2 (09:36→20:28)
[2021-07-15] MEDS: dexAMETHasone 10 MG/ML Vial 6 MG IV (09:36)
[2021-07-15] MEDS: amLODIPine 5 MG Tablet PO (09:36)
[2021-07-15] MEDS: Pantoprazole Sodium 40 MG Tablet PO ×2 (09:36→20:28)
--- NOTE | 2021-07-15 13:06 | PN.HOSP_ITS ---
Subjective Subjective Patient was seen and examined. Currently on FiO2 50%, remains on Airvo 60 L Objective Data Objective Data Vital Signs: Vital Signs Temp Pulse Resp BP Pulse Ox 97.0 F L 94 14 128/84 H 94 07/15/21 09:00 07/15/21 10:00 07/15/21 10:00 07/15/21 10:00 07/15/21 10:00 Oxygen Flow Rate (L/min) 60 Oxygen Delivery Method Airvo Weight: 105.1 kg Body Mass Index (BMI) 31.1 Intake & Output: Intake and Output for Last 24 Hours 07/13/21 07/14/21 07/15/21 23:59 23:59 23:59 Intake Total 920 / 920 2190 / 2190 104 / 104 Output Total 2099 / 2099 3550 / 3550 1999 Balance -1180 / -1180 -1360 / -1360 -1896 / -1896 Lab / Micro Data Result Diagrams: 07/15/21 03:20 07/15/21 03:20 Labs: Laboratory Results - last 24 hr 07/14/21 03:59: Diff Path Review Reviewed 07/14/21 17:00: POC Glucose 324 H 07/14/21 21:01: POC Glucose 363 H 07/15/21 03:20: WBC 12.9 H, RBC 3.63 L, Hgb 10.5 L, Hct 31.2 L, MCV 86.0, MCH 28.9, MCHC 33.7, RDW Std Deviation 40.1, RDW Coeff of Preet 12.7, Plt Count 428, MPV 9.8 07/15/21 03:20: Sodium 131 L, Potassium 4.2, Chloride 100, Carbon Dioxide 25.0, Anion Gap 6, BUN 31 H, Creatinine 1.03, Estim Creat Clear Calc 104.64, Est GFR (MDRD) Af Amer 103, Est GFR (MDRD) Non-Af 85, BUN/Creatinine Ratio 30.1 H, Glucose 291 H, Calcium 8.1 L, Phosphorus 2.8, Magnesium 1.8 07/15/21 06:36: POC Glucose 271 H Micro: Microbiology 07/14/21 04:00 Sputum, Expectorated/Coughed Gram Stain - Final 07/14/21 04:00 Sputum, Expectorated/Coughed Respiratory Culture - Preliminary Presumptive C albicans 07/09/21 18:10 Blood Culture (Wb) - Anticubital Right Blood Culture - Final No growth in 5 days. 07/09/21 19:15 Blood Culture (Wb) - Anticubital Left Blood Culture - Final No growth in 5 days. 07/09/21 21:50 Mucosa - Nose Respiratory Panel (PCR) - Final 07/09/21 19:47 Urine, Clean Catch Streptococcus pneumoniae Antigen (M - Fi nal 07/09/21 19:47 Urine, Random Legionella Antigen - Final Physical Exam Narrative Physical exam: General: Alert, Oriented x3, Cooperative, on Airvo HEENT: Atraumatic Oral: Moist Mucosa Neck: Supple Lungs: Diminished to auscultation Cardiovascular: HS I+II, regular, no murmurs Abdomen: Bowel Sounds Present, Soft, Non Tender Extremities: Bilateral pedal edema +2 Assessment & Plan Assessment/Plan (1) COVID-19: (2) Respiratory failure: QUALIFIERS: Chronicity: acute Respiratory failure complication: hypoxia Qualified Code(s): J96.01 - Acute respiratory failure with hypoxia (3) Acute respiratory failure with hypoxia: (4) AYUSH (acute kidney injury): (5) DKA (diabetic ketoacidoses): QUALIFIERS: Diabetes mellitus type: type 2 Diabetes mellitus complication detail: without coma Qualified Code(s): E11.10 - Type 2 diabetes mellitus with ketoacidosis without coma (6) Pulmonary emboli: PLAN: 1. Acute hypoxic respiratory failure secondary to COVID-19 pneumonia Continue on Airvo, Decadron, Olumiant, breathing treatments ID and pulmonology following 2. Elevated D-dimer, concern for possible acute PE, continue on apixaban 3. Hypokalemia, replaced 4. Hypomagnesemia, Mg 1.8, replaced, recheck in a.m. 5. Type II DM, blood sugars uncontrolled, Lantus increased to 20 units twice daily, continue with blood glucose checks and insulin sliding scale 6. Hypertension, controlled, continue amlodipine Charges/Coding Visit Charges Inpatient E&M: 50737 Subs Hosp L3
--- NOTE | 2021-07-15 13:40 | CHAPLAIN ---
Type of Pastoral Visit ___ Initial Visit ___ Follow-up Visit ___ On-call Visit ___ General Patient Visit ___ Spiritual Assessment ___ Family Conference ___ Bereavement ___ Rapid Response ___ Code Blue _x__ Other (describe below) Pastoral Care Referral From _x__ Patient ___ Family ___ Nurse ___ Physician ___ Assembly Line Supervisor ___ Background Investigator ___ Other (describe below) Sacrament/Intervention ___ Active listening ___ Anointing ___ Tenriism ___ Bereavement ___ Communion ___ Radhika exploration ___ ___ Life review ___ Prayer ___ Reconciliation ___ Sacrament of Sick _x__ Supportive presence ___ Wedding ___ Other (describe below) Pastoral Comments phone call into patient room for offer of support; pt was eating lunch and states that he is doing well and has no concerns at this time
[2021-07-15 14:35] LABS: Bedside Glucose 375 mg/dL (70-110)
[2021-07-15 16:36] LABS: Bedside Glucose 418 mg/dL (70-110)
--- NOTE | 2021-07-15 19:53 | NURSING ---
bipap reapplied per pt requested
[2021-07-15] MEDS: MELATONIN 3 MG TABLET PO (20:28)
[2021-07-15 20:41] LABS: Bedside Glucose 385 mg/dL (70-110)
--- NOTE | 2021-07-15 22:00 | NURSING ---
pt being transfered from the chair to bed. sats drop to 85% on 5lnc but did recover in about 10 min to 91%
[2021-07-16] VITALS (23 sets, daily range): BP systolic 128–164; BP diastolic 71–95; PULSE 61–93; RESP 17–27; TEMP 36.2–36.7; O2SAT 79–100
--- NOTE | 2021-07-16 01:15 | NURSING ---
po drop to 79% on 4l after voiding. o2 increased to 5lnc. po still stayed around 80 increased to 6lnc and pickle given. Pt denied feeling more sob.
--- NOTE | 2021-07-16 05:37 | NURSING ---
02 decreased to 6lnc
[2021-07-16 05:44] LABS: Hematocrit 29.6 % (40-54); Hemoglobin 10.2 g/dL (13.0-16.5); Mean Corp Hgb Conc 34.5 g/dL (32-36); Mean Corpuscular Hgb 29.6 pg (27.0-32.0); Mean Corpuscular Volume 85.8 fL (80-94); Mean Platelet Vol. 10.2 fl (6.2-12.0); POSITIVE COUNT YES; POSITIVE MORPHOLOGY YES; Platelet Count 516 K/mm3 (150-450); RBC Distribution Width CV 12.7 % (11.6-14.6); RBC Distribution Width SD 39.7 fl (35.1-43.9); Red Blood Count 3.45 M/mm3 (4.6-6.2); White Blood Count 15.4 K/mm3 (4.4-11.0)
[2021-07-16 05:47] LABS: Differential Indicated MANUAL DIFF
[2021-07-16 05:58] LABS: ALB/GLOB Ratio 0.4 RATIO (0.9-2.4); AST(SGOT) 15 U/L (15-37); Alanine Aminotransfer ALT/SGPT 39 U/L (16-61); Albumin, Serum 1.7 g/dL (3.2-5.0); Alkaline Phosphatase 61 U/L (45-117); Anion Gap 6 (5-15); BUN 28 mg/dL (7-18); BUN/Creat Ratio 29.9 RATIO (10-20); Calcium,Total 8.1 mg/dL (8.5-10.1); Chloride 97 mmol/L (98-107); Creatinine, Serum 0.94 mg/dL (0.70-1.30); EST Glomerular Filtration Rate 95 mL/min (>60); Est Glom Filt Rate - Afr Amer 114 mL/min (>60); Estimated Creatinine Clearance 114.66 ml/min; Glucose 319 mg/dL (74-106); Potassium 4.1 mmol/L (3.5-5.1); Protein, Total 5.7 g/dL (6.4-8.2); Sodium Level 129 mmol/L (136-145)
[2021-07-16 06:54] LABS: Total Cells Counted 100 (MANUAL DIFF)
[2021-07-16 06:57] LABS: Eosinophil 6 % (0-5); Lymphocyte 5 % (19-41); Metamyelocyte 2 % (0-1); Monocyte 9 % (0-10); Myelocyte 4 % (0-0); Neutrophil-Band 2 % (0-5); Neutrophil-Segmented 72 % (47-70)
[2021-07-16 06:58] LABS: Platelet Estimate SLT INC (ADEQ); Red Cell Morphology NORM C+C NORMAL (NORM C&C)
[2021-07-16 07:01] LABS: Absolute Neutrophil Count 11.4 X10^3/uL (2.0-7.7)
[2021-07-16 07:02] LABS: Absolute Lymphocyte Count 0.77 X10^3/uL (0.83-4.51); Lymphocyte # 0.77 X10^3/ul (0.83-4.51)
--- NOTE | 2021-07-16 08:14 | PCM.PN.INT ---
Assessment & Plan Assessment/Plan (1) COVID-19: (2) Respiratory failure: QUALIFIERS: Chronicity: acute Respiratory failure complication: hypoxia Qualified Code(s): J96.01 - Acute respiratory failure with hypoxia PLAN: RECOMMENDATIONS: 1. Continue to wean FiO2 to maintain oxygen saturations at or above 90%. 2. Completed remdesivir. Continue Decadron (07/19/2021) and Olumiant (07/23/2021) to complete courses 3. Aggressive pulmonary toileting 4. Monitor liver function daily 5. Increase Lantus. Continue sliding scale 6. Increase activity as tolerated 7. Continue therapeutic anticoagulation as ordered. 8. Okay to leave the intensive care unit from my perspective IMPRESSIONS: 1. Acute hypoxemic respiratory failure secondary to COVID-19 pneumonia The patient presented to the hospital with approximately 10 days of progressive Covid symptoms, having tested positive on the second. Plan to continue current supportive measures. FiO2 will be weaned to maintain oxygen saturations at or above 90%. The patient will be continued on remdesivir as ordered. Liver and renal function will be monitored and showed no change in medications needed. The patient will complete a 10-day course of Decadron. Continue KELY inhibitor therapy today per ID recommendations. Given that the patient presented with an elevated D-dimer and suboptimal CTA chest, therapeutic anticoagulation will be continued. Aggressive pulmonary toileting ordered. We will hold on a diuretic challenge today. Continue to wean oxygen as tolerated. 2. Diabetic ketoacidosis Resolved. Patient with very poor p.o. intake. Will place on very low dose Lantus and sliding scale insulin coverage given marginal p.o. intake. 3. Acute kidney injury Resolved. Most likely prerenal in etiology. Slight improvement with volume expansion. Continue to monitor urine output for now. No current indication for renal replacement therapy. 4. Obesity/hypertension/GERD Complicates care, management, recovery and prognosis. Continue home medications as indicated. Subjective Subjective Patient did well overnight. No acute issues were reported. Patient was able to tolerate nasal cannula 2 in the evening, but does desaturate with minimal movement. Blood sugars have remained elevated. Objective Data Objective Data Vital Signs: Vital Signs Temp Pulse Resp BP Pulse Ox 36.7 C 86 27 H 143/77 H 95 07/16/21 04:00 07/16/21 07:00 07/16/21 07:00 07/16/21 07:00 07/16/21 07:00 Oxygen Flow Rate (L/min) 10 Oxygen Delivery Method Nasal Cannula Weight: 105.2 kg Body Mass Index (BMI) 31.1 Intake & Output: Intake and Output for Last 24 Hours 07/14/21 07/15/21 07/16/21 23:59 23:59 23:59 Intake Total 2190 / 2190 2304 / 2304 340 / 340 Output Total 3550 / 3550 3675 / 3675 800 / 800 Balance -1360 / -1360 -1371 / -1371 -460 / -460 Lab / Micro Data Result Diagrams: 07/16/21 04:00 07/16/21 04:00 Labs: Laboratory Results - last 24 hr 07/15/21 12:19: POC Glucose 375 H 07/15/21 16:18: POC Glucose 418 H 07/15/21 20:24: POC Glucose 385 H 07/16/21 04:00: WBC 15.4 H, RBC 3.45 L, Hgb 10.2 L, Hct 29.6 L, MCV 85.8, MCH 29.6, MCHC 34.5, RDW Std Deviation 39.7, RDW Coeff of Preet 12.7, Plt Count 516 H, MPV 10.2, Neut % (Auto) Not Reportable, Absolute Neuts (auto) 11.4 H, Absolute Lymphs (auto) 0.77 L, Total Counted 100, Neutrophils % (Manual) 72 H, Band Neutrophils % 2, Lymphocytes % (Manual) 5 L, Monocytes % (Manual) 9, Eosinophils % (Manual) 6 H, Metamyelocytes % 2 H, Myelocytes % 4 H, Diff Path Review Ameena peña, Platelet Estimate SLT INC, RBC Morphology NORM C+C 07/16/21 04:00: Sodium 129 L, Potassium 4.1, Chloride 97 L, Carbon Dioxide 26.0, Anion Gap 6, BUN 28 H, Creatinine 0.94, Estim Creat Clear Calc 114.66, Est GFR (MDRD) Af Amer 114, Est GFR (MDRD) Non-Af 95, BUN/Creatinine Ratio 29.9 H, Glucose 319 H, Calcium 8.1 L, Total Bilirubin 0.40, AST 15, ALT 39, Alkaline Phosphatase 61, Total Protein 5.7 L, Albumin 1.7 L, Globulin 4.0, Albumin/Globulin Ratio 0.4 L Micro: Microbiology 07/14/21 04:00 Sputum, Expectorated/Coughed Gram Stain - Final 07/14/21 04:00 Sputum, Expectorated/Coughed Respiratory Culture - Preliminary Presumptive C albicans 07/09/21 18:10 Blood Culture (Wb) - Anticubital Right Blood Culture - Final No growth in 5 days. 07/09/21 19:15 Blood Culture (Wb) - Anticubital Left Blood Culture - Final No growth in 5 days. 07/09/21 21:50 Mucosa - Nose Respiratory Panel (PCR) - Final 07/09/21 19:47 Urine, Clean Catch Streptococcus pneumoniae Antigen (M - Final 07/09/21 19:47 Urine, Random Legionella Antigen - Final Physical Exam Const alert and oriented x3 General Appearance: cooperative and on BiPAP Nutritional Appearance: obese HEENT normocephalic, head/scalp atraumatic, hearing grossly normal bilaterally and external ears normal Eyes PERRL, EOMs intact bilaterally, conjunctivae normal and no scleral icterus Lymph Lymphatic: no lymphadenopathy noted Chest inspection of chest normal Chest: symmetrical chest wall rise; Negative for crepitus Resp Resp Narrative: Improving cough with deep inhalation Auscultation: diminished lung sounds; Negative for rales, rhonchi or wheezes Cardio regular rate, regular rhythm, S1 normal heart sound, S2 normal heart sound, no murmurs, no rub and no gallops GI normal to inspection, nondistended, normoactive bowel sounds Extremity normal to inspection General Extremity: Negative for clubbing, cyanosis or edema Peripheral Pulses: Yes pulses 2+ throughout Skin no rashes or lesions noted Neuro oriented x3, CN's II-XII intact bilaterally, moves all extremities and no focal motor deficits Psych mental status grossly normal, thought process normal, cooperative and affect normal Charges/Coding Visit Charges Inpatient E&M: 50911 Subs Hosp L3
[2021-07-16] MEDS: amLODIPine 5 MG Tablet PO (08:43)
[2021-07-16] MEDS: APIXABAN 5 MG TABLET 10 MG PO ×2 (08:44→22:08)
[2021-07-16] MEDS: dexAMETHasone 10 MG/ML Vial 6 MG IV (08:44)
[2021-07-16] MEDS: Pantoprazole Sodium 40 MG Tablet PO ×2 (08:44→22:08)
[2021-07-16] MEDS: Lisinopril 20 MG Tablet PO (08:44)
[2021-07-16] MEDS: Insulin Lispro 100 UNIT/ML INSULN.PEN SC ×4 (08:54→22:13)
[2021-07-16 09:01] LABS: Bedside Glucose 299 mg/dL (70-110)
--- NOTE | 2021-07-16 12:16 | PCM.PN.HOSP ---
Subjective Subjective Patient was seen and examined. Patient is currently on 10 L of oxygen. Off Airvo. Objective Data Objective Data Vital Signs: Vital Signs Temp Pulse Resp BP Pulse Ox 97.1 F L 82 25 H 140/85 H 88 07/16/21 08:41 07/16/21 11:00 07/16/21 08:41 07/16/21 08:41 07/16/21 08:55 Oxygen Flow Rate (L/min) 10 Oxygen Delivery Method Nasal Cannula Weight: 105.2 kg Body Mass Index (BMI) 31.1 Intake & Output: Intake and Output for Last 24 Hours 07/14/21 07/15/21 07/16/21 23:59 23:59 23:59 Intake Total 2190 / 2190 2304 / 2304 340 / 340 Output Total 3550 / 3550 3675 / 3675 800 / 800 Balance -1360 / -1360 -1371 / -1371 -460 / -460 Lab / Micro Data Result Diagrams: 07/16/21 04:00 07/16/21 04:00 Labs: Laboratory Results - last 24 hr 07/15/21 12:19: POC Glucose 375 H 07/15/21 16:18: POC Glucose 418 H 07/15/21 20:24: POC Glucose 385 H 07/16/21 04:00: WBC 15.4 H, RBC 3.45 L, Hgb 10.2 L, Hct 29.6 L, MCV 85.8, MCH 29.6, MCHC 34.5, RDW Std Deviation 39.7, RDW Coeff of Preet 12.7, Plt Count 516 H, MPV 10.2, Neut % (Auto) Not Reportable, Absolute Neuts (auto) 11.4 H, Absolute Lymphs (auto) 0.77 L, Total Counted 100, Neutrophils % (Manual) 72 H, Band Neutrophils % 2, Lymphocytes % (Manual) 5 L, Monocytes % (Manual) 9, Eosinophils % (Manual) 6 H, Metamyelocytes % 2 H, Myelocytes % 4 H, Diff Path Review Ameena peña, Platelet Estimate SLT INC, RBC Morphology NORM C+C 07/16/21 04:00: Sodium 129 L, Potassium 4.1, Chloride 97 L, Carbon Dioxide 26.0, Anion Gap 6, BUN 28 H, Creatinine 0.94, Estim Creat Clear Calc 114.66, Est GFR (MDRD) Af Amer 114, Est GFR (MDRD) Non-Af 95, BUN/Creatinine Ratio 29.9 H, Glucose 319 H, Calcium 8.1 L, Total Bilirubin 0.40, AST 15, ALT 39, Alkaline Phosphatase 61, Total Protein 5.7 L, Albumin 1.7 L, Globulin 4.0, Albumin/Globulin Ratio 0.4 L 07/16/21 08:38: POC Glucose 299 H Micro: Microbiology 07/14/21 04:00 Sputum, Expectorated/Coughed Gram Stain - Final 07/14/21 04:00 Sputum, Expectorated/Coughed Respiratory Culture - Final Presumptive C albicans 07/09/21 18:10 Blood Culture (Wb) - Anticubital Right Blood Culture - Final No growth in 5 days. 07/09/21 19:15 Blood Culture (Wb) - Anticubital Left Blood Culture - Final No growth in 5 days. 07/09/21 21:50 Mucosa - Nose Respiratory Panel (PCR) - Final 07/09/21 19:47 Urine, Clean Catch Streptococcus pneumoniae Antigen (M - Final 07/09/21 19:47 Urine, Random Legionella Antigen - Final Physical Exam Narrative Physical exam: General: Alert, Oriented x3, Cooperative, on Airvo HEENT: Atraumatic Oral: Moist Mucosa Neck: Supple Lungs: Diminished to auscultation Cardiovascular: HS I+II, regular, no murmurs Abdomen: Bowel Sounds Present, Soft, Non Tender Extremities: Bilateral pedal edema +2 Assessment & Plan Assessment/Plan (1) COVID-19: (2) Respiratory failure: QUALIFIERS: Chronicity: acute Respiratory failure complication: hypoxia Qualified Code(s): J96.01 - Acute respiratory failure with hypoxia (3) Acute respiratory failure with hypoxia: (4) AYUSH (acute kidney injury): (5) DKA (diabetic ketoacidoses): QUALIFIERS: Diabetes mellitus type: type 2 Diabetes mellitus complication detail: without coma Qualified Code(s): E11.10 - Type 2 diabetes mellitus with ketoacidosis without coma (6) Pulmonary emboli: PLAN: 1. Acute hypoxic respiratory failure secondary to COVID-19 pneumonia, slowly improving Continue on Airvo, Decadron, Olumiant, breathing treatments ID and pulmonology following 2. Elevated D-dimer, concern for possible acute PE, continue on apixaban 3. Hypokalemia, replaced 4. Hypomagnesemia, recheck in a.m. 5. Type II DM, blood sugars uncontrolled, Lantus increased to 35 units twice daily, continue with blood glucose checks and insulin sliding scale 6. Hypertension, controlled, continue amlodipine Charges/Coding Visit Charges Inpatient E&M: 27522 Subs Hosp L3
[2021-07-16 13:16] LABS: Pathologist Review Reviewed
[2021-07-16 17:21] LABS: Bedside Glucose 409 mg/dL (70-110)
[2021-07-16 21:56] LABS: Bedside Glucose 342 mg/dL (70-110)
[2021-07-17] VITALS (15 sets, daily range): BP systolic 128–164; BP diastolic 72–91; PULSE 64–101; RESP 17–22; TEMP 36.4–37.1; O2SAT 86–97
[2021-07-17 01:56] LABS: Bedside Glucose 399 mg/dL (70-110)
[2021-07-17] MEDS: hydrALAZINE 20 MG/ML Vial 10 MG IV (02:00)
[2021-07-17 06:16] LABS: Bedside Glucose 195 mg/dL (70-110)
[2021-07-17] MEDS: Insulin Lispro 100 UNIT/ML INSULN.PEN SC ×3 (06:32→19:12)
[2021-07-17 09:49] LABS: Hematocrit 33.7 % (40-54); Hemoglobin 11.5 g/dL (13.0-16.5); Mean Corp Hgb Conc 34.1 g/dL (32-36); Mean Corpuscular Hgb 29.3 pg (27.0-32.0); Mean Platelet Vol. 9.7 fl (6.2-12.0); POSITIVE COUNT YES; POSITIVE DIFFERENTIAL YES; POSITIVE MORPHOLOGY YES; Platelet Count 700 K/mm3 (150-450); RBC Distribution Width CV 12.8 % (11.6-14.6); RBC Distribution Width SD 39.8 fl (35.1-43.9); Red Blood Count 3.92 M/mm3 (4.6-6.2)
[2021-07-17 09:50] LABS: Differential Indicated MANUAL DIFF
[2021-07-17 10:15] LABS: Eosinophil 2 % (0-5); Lymphocyte 14 % (19-41); Metamyelocyte 10 % (0-1); Monocyte 3 % (0-10); Neutrophil-Band 5 % (0-5); Neutrophil-Segmented 66 % (47-70); Platelet Estimate MOD INC (ADEQ); Total Cells Counted 100 (MANUAL DIFF)
[2021-07-17 10:16] LABS: Red Cell Morphology NORM C+C NORMAL (NORM C&C)
[2021-07-17 10:17] LABS: Absolute Lymphocyte Count 2.66 X10^3/uL (0.83-4.51); Absolute Neutrophil Count 13.5 X10^3/uL (2.0-7.7); Lymphocyte # 2.66 X10^3/ul (0.83-4.51); Neutrophil # 13.49 X10^3/uL (2.7-7.7)
[2021-07-17 10:38] LABS: ALB/GLOB Ratio 0.5 RATIO (0.9-2.4); AST(SGOT) 25 U/L (15-37); Alanine Aminotransfer ALT/SGPT 46 U/L (16-61); Alkaline Phosphatase 73 U/L (45-117); Anion Gap 8 (5-15); BUN 24 mg/dL (7-18); BUN/Creat Ratio 24.8 RATIO (10-20); Calcium,Total 8.9 mg/dL (8.5-10.1); Chloride 97 mmol/L (98-107); Creatinine, Serum 0.97 mg/dL (0.70-1.30); EST Glomerular Filtration Rate 91 mL/min (>60); Est Glom Filt Rate - Afr Amer 110 mL/min (>60); Estimated Creatinine Clearance 111.11 ml/min; Globulin 4.4 g/dL (2.2-4.2); Glucose 198 mg/dL (74-106); Magnesium 1.7 mg/dL (1.6-2.6); Potassium 4.1 mmol/L (3.5-5.1); Protein, Total 6.4 g/dL (6.4-8.2); Sodium Level 130 mmol/L (136-145)
[2021-07-17] MEDS: dexAMETHasone 10 MG/ML Vial 6 MG IV (11:02)
[2021-07-17] MEDS: amLODIPine 5 MG Tablet PO (11:03)
[2021-07-17] MEDS: APIXABAN 5 MG TABLET 10 MG PO (11:03)
[2021-07-17] MEDS: Lisinopril 20 MG Tablet PO (11:04)
[2021-07-17] MEDS: Pantoprazole Sodium 40 MG Tablet PO (11:04)
[2021-07-17] MEDS: 0.9% Saline Lock 10 ML Syringe IV (11:07)
--- NOTE | 2021-07-17 11:16 | PCM.PN.INT ---
Assessment & Plan Assessment/Plan (1) COVID-19: (2) Respiratory failure: QUALIFIERS: Chronicity: acute Respiratory failure complication: hypoxia Qualified Code(s): J96.01 - Acute respiratory failure with hypoxia PLAN: RECOMMENDATIONS: 1. Continue to wean FiO2 to maintain oxygen saturations at or above 90%. 2. Completed remdesivir. Continue Decadron (07/19/2021). Olumiant (07/23/2021) or until discharged 3. Aggressive pulmonary toileting 4. Monitor liver function daily 5. Increase Lantus. Continue sliding scale 6. Increase activity as tolerated 7. Continue therapeutic anticoagulation as ordered. 8. Walking oximetry later today. Okay to discharge if tolerates 6 L or less 9. If discharged, patient should follow-up in our office in 4 to 6 weeks with nurse practitioner IMPRESSIONS: 1. Acute hypoxemic respiratory failure secondary to COVID-19 pneumonia The patient presented to the hospital with approximately 10 days of progressive Covid symptoms, having tested positive on the second. Plan to continue current supportive measures. FiO2 will be weaned to maintain oxygen saturations at or above 90%. The patient will be continued on remdesivir as ordered. Liver and renal function will be monitored and showed no change in medications needed. The patient will complete a 10-day course of Decadron. Continue KELY inhibitor therapy until discharge. Decadron can be given to complete a 10-day course. Recommend continuing with anticoagulation for 3 months. Walking oximetry later today. If patient tolerates ambulation on 6 L or less, likely okay to discharge from a pulmonary perspective. Patient will need to follow-up in our office in 4 to 6 weeks with nurse practitioner. 2. Diabetic ketoacidosis Resolved. Patient with improving p.o. intake. Recommend diabetic teaching 3. Acute kidney injury Resolved. Most likely prerenal in etiology. Slight improvement with volume expansion. Continue to monitor urine output for now. No current indication for renal replacement therapy. 4. Obesity/hypertension/GERD Complicates care, management, recovery and prognosis. Continue home medications as indicated. Subjective Subjective Patient states he continues to get stronger every day. Patient states he continues to have a cough with deep inhalation, but exercise is less taxing than previous. Patient continues to have worsening oxygenation overnight, but improves during the day. Objective Data Objective Data Vital Signs: Vital Signs Temp Pulse Resp BP Pulse Ox 37.1 C 101 H 22 H 128/72 H 95 07/17/21 09:50 07/17/21 09:50 07/17/21 09:50 07/17/21 09:50 07/17/21 11:15 Oxygen Flow Rate (L/min) 5 Oxygen Delivery Method Nasal Cannula Weight: 106.4 kg Body Mass Index (BMI) 31.1 Intake & Output: Intake and Output for Last 24 Hours 07/15/21 07/16/21 07/17/21 23:59 23:59 23:59 Intake Total 2304 / 2304 1140 / 1140 Output Total 3675 / 3675 1400 / 1900 900 / 900 Balance -1371 / -1371 -260 / -760 -900 / -900 Lab / Micro Data Result Diagrams: 07/17/21 09:30 07/17/21 09:30 Labs: Laboratory Results - last 24 hr 07/16/21 04:00: Diff Path Review Reviewed 07/16/21 12:02: POC Glucose 342 H 07/16/21 17:10: POC Glucose 409 H 07/16/21 22:12: POC Glucose 399 H 07/17/21 06:09: POC Glucose 195 H 07/17/21 09:30: WBC 19.0 H, RBC 3.92 L, Hgb 11.5 L, Hct 33.7 L, MCV 86.0, MCH 29.3, MCHC 34.1, RDW Std Deviation 39.8, RDW Coeff of Preet 12.8, Plt Count 700 H, MPV 9.7, Neut % (Auto) Not Reportable, Absolute Neuts (auto) 13.5 H, Absolute Lymphs (auto) 2.66, Total Counted 100, Neutrophils % (Manual) 66, Band Neutrophils % 5, Lymphocytes % (Manual) 14 L, Monocytes % (Manual) 3, Eosinophils % (Manual) 2, Metamyelocytes % 10 H, Diff Path Review May foll, Platelet Estimate MOD INC, RBC Morphology NORM C+C 07/17/21 09:30: Sodium 130 L, Potassium 4.1, Chloride 97 L, Carbon Dioxide 25.0, Anion Gap 8, BUN 24 H, Creatinine 0.97, Estim Creat Clear Calc 111.11, Est GFR (MDRD) Af Amer 110, Est GFR (MDRD) Non-Af 91, BUN/Creatinine Ratio 24.8 H, Glucose 198 H, Calcium 8.9, Magnesium 1.7, Total Bilirubin 0.60, AST 25, ALT 46, Alkaline Phosphatase 73, Total Protein 6.4, Albumin 2.0 L, Globulin 4.4 H, Albumin/Globulin Ratio 0.5 L Micro: Microbiology 07/14/21 04:00 Sputum, Expectorated/Coughed Gram Stain - Final 07/14/21 04:00 Sputum, Expectorated/Coughed Respiratory Culture - Final Presumptive C albicans 07/09/21 18:10 Blood Culture (Wb) - Anticubital Right Blood Culture - Final No growth in 5 days. 07/09/21 19:15 Blood Culture (Wb) - Anticubital Left Blood Culture - Final No growth in 5 days. 07/09/21 21:50 Mucosa - Nose Respiratory Panel (PCR) - Final 07/09/21 19:47 Urine, Clean Catch Streptococcus pneumoniae Antigen (M - Final 07/09/21 19:47 Urine, Random Legionella Antigen - Final Physical Exam Const alert and oriented x3 Constitutional Narrative: On nasal cannula General Appearance: cooperative Nutritional Appearance: obese HEENT normocephalic, head/scalp atraumatic, hearing grossly normal bilaterally and external ears normal Eyes PERRL, EOMs intact bilaterally, conjunctivae normal and no scleral icterus Lymph Lymphatic: no lymphadenopathy noted Chest inspection of chest normal Chest: symmetrical chest wall rise; Negative for crepitus Resp Resp Narrative: Improving cough with deep inhalation Auscultation: clear to auscultation bilaterally; Negative for rales, rhonchi or wheezes Cardio regular rate, regular rhythm, S1 normal heart sound, S2 normal heart sound, no murmurs, no rub and no gallops GI normal to inspection, nondistended, normoactive bowel sounds Extremity normal to inspection General Extremity: Negative for clubbing, cyanosis or edema Peripheral Pulses: Yes pulses 2+ throughout Skin no rashes or lesions noted Neuro oriented x3, CN's II-XII intact bilaterally, moves all extremities and no focal motor deficits Psych mental status grossly normal, thought process normal, cooperative and affect normal Charges/Coding Visit Charges Inpatient E&M: 72672 Subs Hosp L2
[2021-07-17 11:41] LABS: Bedside Glucose 286 mg/dL (70-110)
[2021-07-17 13:51] LABS: Bedside Glucose 391 mg/dL (70-110)
--- NOTE | 2021-07-17 14:44 | CHAPLAIN ---
Type of Pastoral Visit ___ Initial Visit ___ Follow-up Visit ___ On-call Visit ___ General Patient Visit ___ Spiritual Assessment ___ Family Conference ___ Bereavement ___ Rapid Response ___ Code Blue _x__ Other (describe below) Pastoral Care Referral From _x__ Patient ___ Family ___ Nurse ___ Physician ___ Senior Trial Attorney ___ Hand Ironer ___ Other (describe below) Sacrament/Intervention _x__ Active listening ___ Anointing ___ Judaism ___ Bereavement ___ Communion ___ Radhika exploration ___ ___ Life review _x__ Prayer ___ Reconciliation ___ Sacrament of Sick ___ Supportive presence ___ Wedding ___ Other (describe below) Pastoral Comments phone call into isolation room; pt reports feeling much better and hopeful to go home as early as this evening; pt says a prayer is fine but does not need anything else
--- NOTE | 2021-07-17 15:07 | CASEMGMT ---
Pt qualifies for 4L w/ exertion and states no preference for DME. Referral faxed to [facility] and call to [facility] to notify. Pt states no other concerns with going home at discharge. Anu MOY CM
--- NOTE | 2021-07-17 16:48 | PCM.DC ---
Discharge Instructions Diet Discharge Diet: No restrictions Activity Discharge Activity: Return to Normal Activity Weight Bearing Status: Weight bearing as tolerated Follow Up Care Test Results: Test results from this visit will be discussed in further detail at your follow-up appointment, if applicable. Discharge Plan Admission Admit Date/Time: 07/09/21 19:35 Primary Reason for Your Visit: Acute respiratory failure secondary to acute COVID-19 pneumonia Attending Provider: Jada Oneal Primary Care Provider: Sanjay Simpson Consulting Providers: Bi Alvarez ; Spenser Albrecht Instructions Additional Instructions / Restrictions: You are being discharged with oxygen. Continue to use your oxygen all the time. Continue to use your incentive spirometer. Continue to remain active and eat healthy. Let your doctor know if you develop fever >101.3F or have progressive worsening shortness of breath. Follow-up with your primary care doctor and also with pulmonology to have your continued oxygen use reevaluated. Be careful of going near open flames whilst on oxygen. Complete your Decadron as prescribed. Continue to use your inhaler as needed for shortness of breath. Continue to quarantine for 20 days total from the start of your symptoms. Discharge Orders/Prescriptions Prescriptions: New amlodipine 5 mg Tablet 5 mg PO DAILY 30 Days Qty: 30 RF: 0 Eliquis 5 mg Tablet See Taper mg PO BID 4 Days Qty: 16 RF: 0 Eliquis 5 mg Tablet 5 mg PO BID Qty: 0 RF: 0 Lantus Solostar U-100 Insulin 100 unit/mL (3 mL) Insulin Pen 50 unit subcut 1100,2200 30 Days Qty: 30 RF: 0 lisinopril 20 mg Tablet 20 mg PO DAILY 30 Days Qty: 30 RF: 0 dexamethasone [Decadron] 6 mg tablet 6 mg PO DAILY Qty: 2 RF: 0 Continued pantoprazole 40 mg tablet,delayed release (DR/EC) 40 mg PO BID RF: 0 albuterol sulfate 90 mcg/actuation HFA aerosol inhaler 1 - 2 puff inhalation Q4H RF: 0 Farxiga 10 mg tablet 10 mg PO DAILY RF: 0 Discontinued lisinopril [Prinivil] 20 mg tablet 20 mg PO DAILY RF: 0 ondansetron HCl 4 mg tablet 4 mg PO Q8H PRN (Reason: Nausea) RF: 0 metformin 850 mg tablet 850 mg PO TID RF: 0 Lantus Solostar U-100 Insulin 100 unit/mL (3 mL) insulin pen 25 unit SUBCUT DAILY RF: 0 Referrals / Follow Up: Spenser Albrecht DO [STAFF PHYSICIAN] - See Referral Note (in 4-6 weeks) Sanjay Simpson MD [Primary Care Provider] - Within 2 Weeks Disposition Disposition (needs filled in before D/C Order can be placed): Home, Self Care
--- NOTE | 2021-07-17 17:32 | DS.PCM_ITS ---
Providers Date of Admission: 07/09/21 Date of Discharge: 07/17/21 Primary Care Physician: Dr. Sanjay Simpson MD Consultations 07/09/21 21:27 Consult: [employer] / Pulmonary Medicine Routine Consulting Provider: Spenser Albrecht Reason for Consult: Resp failure, COVID PNA EMERGENT Consult: No Notified: Yes Date Notified: 07/09/21 Time Notified: 19:30 Method of Notification: cortext 07/10/21 07:18 Consult: Infectious Disease Routine Consulting Provider: Bi Alvarez Reason for Consult: COVID PNA, EVAL for KELY inhibitor therapy EMERGENT Consult: No Notified: Yes Date Notified: 07/10/21 Time Notified: 09:00 Method of Notification: Answering Service Reason For Visit: RESPIRATORY FAILURE COVID PNA Diagnosis Discharge Diagnosis (1) COVID-19: Status: Acute Code(s): U07.1 - COVID-19 (2) Respiratory failure: Status: Acute Code(s): J96.90 - Respiratory failure, unspecified, unspecified whether with hypoxia or hypercapnia Qualifiers: Chronicity: acute Respiratory failure complication: hypoxia Qualified Code(s): J96.01 - Acute respiratory failure with hypoxia (3) AYUSH (acute kidney injury): Status: Resolved Code(s): N17.9 - Acute kidney failure, unspecified (4) Acute respiratory failure with hypoxia: Status: Acute Code(s): J96.01 - Acute respiratory failure with hypoxia (5) Pulmonary emboli: Status: Suspected Code(s): I26.99 - Other pulmonary embolism without acute cor pulmonale (6) DKA (diabetic ketoacidoses): Status: Resolved Code(s): E11.10 - Type 2 diabetes mellitus with ketoacidosis without coma Qualifiers: Diabetes mellitus type: type 2 Diabetes mellitus complication detail: without coma Qualified Code(s): E11.10 - Type 2 diabetes mellitus with ketoacidosis without coma (7) Hypokalemia: Status: Resolved Code(s): E87.6 - Hypokalemia (8) Hypomagnesemia: Status: Resolved Code(s): E83.42 - Hypomagnesemia Medications at Discharge Home Medications Farxiga 10 mg PO DAILY 07/09/21 albuterol sulfate 1 - 2 puff INHALATION Q4H 07/09/21 pantoprazole 40 mg PO BID 07/09/21 amlodipine 5 mg PO DAILY 30 Days #30 tab 07/17/21 apixaban [Eliquis] 5 mg PO BID #0 tab 07/17/21 apixaban [Eliquis] See Taper PO BID 4 Days #16 tab 07/17/21 dexamethasone [Decadron] 6 mg PO DAILY #2 tab 07/17/21 insulin glargine [Lantus Solostar U-100 Insulin] 50 unit SUBCUT 1100,2200 30 Days #30 ml 07/17/21 lisinopril 20 mg PO DAILY 30 Days #30 tab 07/17/21 Hospital Course Operations None Procedures None Summary of Care Provided Minutes Spent on Discharge: 55 Hospital Course: 40-year-old male with past medical history of type II DM, obesity, hypertension who presents with a 9-day history of fever, chills, sore throat nausea, vomiting diarrhea, altered sense of taste and smell. He was earlier on tested positive for Covid on 07/02/21. Patient is unvaccinated. His and children are all sick with Covid. Patient was found to be in respiratory distress on admission. He was febrile. He was admitted with a lactic acid of 2.3. He was requiring 15 L of oxygen. Patient's admitting chest x-ray shows significant bilateral peripheral infiltrates. His D-dimer was elevated at 2.94. CTA of the chest showed some areas suspicious for acute PE, showed bilateral infiltrates. Patient was given IV Decadron. He was also given empiric Lovenox for suspected PEs. He was also started empirically on IV vancomycin and Zosyn. Patient received Tocilizumab on 07/10/21 He also has significant anion gap with blood sugar of 395. Patient was admitted to ICU initially managed as acute DKA as well as acute hypoxic respiratory failure secondary to COVID-19 pneumonia. Patient received judicious IV fluids. He was managed on elbow/BiPAP. He was seen both by exercise science instructor and infectious disease. He was eventually taken off empiric antibiotics. Patient eventually was weaned off BiPAP/Airvo. He was on 4 L of oxygen at discharge. He was discharged to complete Decadron. He was strongly encouraged to obtain vaccine after his quarantine. Physical Exam Narrative Physical exam: General: Alert, Oriented x3, Cooperative, on Airvo HEENT: Atraumatic Oral: Moist Mucosa Neck: Supple Lungs: Diminished to auscultation Cardiovascular: HS I+II, regular, no murmurs Abdomen: Bowel Sounds Present, Soft, Non Tender Extremities: Bilateral pedal edema +2 Weight / BMI Weight Weight: 106.4 kg Body Mass Index (BMI) 31.1 ABG / Lab / Microbiology Data Result Diagrams: 07/17/21 09:30 07/17/21 09:30 Laboratory: Laboratory Results - last 24 hr 07/16/21 12:02: POC Glucose 342 H 07/16/21 22:12: POC Glucose 399 H 07/17/21 06:09: POC Glucose 195 H 07/17/21 09:30: WBC 19.0 H, RBC 3.92 L, Hgb 11.5 L, Hct 33.7 L, MCV 86.0, MCH 29.3, MCHC 34.1, RDW Std Deviation 39.8, RDW Coeff of Preet 12.8, Plt Count 700 H, MPV 9.7, Neut % (Auto) Not Reportable, Absolute Neuts (auto) 13.5 H, Absolute Lymphs (auto) 2.66, Total Counted 100, Neutrophils % (Manual) 66, Band Neutrophils % 5, Lymphocytes % (Manual) 14 L, Monocytes % (Manual) 3, Eosi nophils % (Manual) 2, Metamyelocytes % 10 H, Diff Path Review February, Platelet Estimate MOD INC, RBC Morphology NORM C+C 07/17/21 09:30: Sodium 130 L, Potassium 4.1, Chloride 97 L, Carbon Dioxide 25.0, Anion Gap 8, BUN 24 H, Creatinine 0.97, Estim Creat Clear Calc 111.11, Est GFR (MDRD) Af Amer 110, Est GFR (MDRD) Non-Af 91, BUN/Creatinine Ratio 24.8 H, Glucose 198 H, Calcium 8.9, Magnesium 1.7, Total Bilirubin 0.60, AST 25, ALT 46, Alkaline Phosphatase 73, Total Protein 6.4, Albumin 2.0 L, Globulin 4.4 H, Albumin/Globulin Ratio 0.5 L 07/17/21 11:09: POC Glucose 286 H 07/17/21 13:41: POC Glucose 391 H Microbiology: Microbiology 07/14/21 04:00 Sputum, Expectorated/Coughed Gram Stain - Final 07/14/21 04:00 Sputum, Expectorated/Coughed Respiratory Culture - Final Presumptive C albicans 07/09/21 18:10 Blood Culture (Wb) - Anticubital Right Blood Culture - Final No growth in 5 days. 07/09/21 19:15 Blood Culture (Wb) - Anticubital Left Blood Culture - Final No growth in 5 days. 07/09/21 21:50 Mucosa - Nose Respiratory Panel (PCR) - Final 07/09/21 19:47 Urine, Clean Catch Streptococcus pneumoniae Antigen (M - Final 07/09/21 19:47 Urine, Random Legionella Antigen - Final D/C Instructions Discharge Diet: No restrictions Weight Bearing Status: Weight bearing as tolerated Meaningful Use Info Meaningful Use Diagnoses (Choose all that apply): None applicable Discharge Plan Admission Admit Date/Time: 07/09/21 19:35 Primary Reason for Your Visit: Acute respiratory failure secondary to acute COVID-19 pneumonia Attending Provider: Jada Oneal Primary Care Provider: Sanjay Simpson Consulting Providers: Bi Alvarez ; Spenser Albrecht Instructions Additional Instructions / Restrictions: You are being discharged with oxygen. Continue to use your oxygen all the time. Continue to use your incentive spirometer. Continue to remain active and eat healthy. Let your doctor know if you develop fever >101.3F or have progressive worsening shortness of breath. Follow-up with your primary care doctor and also with pulmonology to have your continued oxygen use reevaluated. Be careful of going near open flames whilst on oxygen. Complete your Decadron as prescribed. Continue to use your inhaler as needed for shortness of breath. Continue to quarantine for 20 days total from the start of your symptoms. Discharge Orders/Prescriptions Prescriptions: New amlodipine 5 mg Tablet 5 mg PO DAILY 30 Days Qty: 30 RF: 0 Eliquis 5 mg Tablet See Taper mg PO BID 4 Days Qty: 16 RF: 0 Eliquis 5 mg Tablet 5 mg PO BID Qty: 0 RF: 0 Lantus Solostar U-100 Insulin 100 unit/mL (3 mL) Insulin Pen 50 unit subcut 1100,2200 30 Days Qty: 30 RF: 0 lisinopril 20 mg Tablet 20 mg PO DAILY 30 Days Qty: 30 RF: 0 dexamethasone [Decadron] 6 mg tablet 6 mg PO DAILY Qty: 2 RF: 0 Continued pantoprazole 40 mg tablet,delayed release (DR/EC) 40 mg PO BID RF: 0 albuterol sulfate 90 mcg/actuation HFA aerosol inhaler 1 - 2 puff inhalation Q4H RF: 0 Farxiga 10 mg tablet 10 mg PO DAILY RF: 0 Discontinued lisinopril [Prinivil] 20 mg tablet 20 mg PO DAILY RF: 0 ondansetron HCl 4 mg tablet 4 mg PO Q8H PRN (Reason: Nausea) RF: 0 metformin 850 mg tablet 850 mg PO TID RF: 0 Lantus Solostar U-100 Insulin 100 unit/mL (3 mL) insulin pen 25 unit SUBCUT DAILY RF: 0 Referrals / Follow Up: Spenser Albrecht DO [STAFF PHYSICIAN] - See Referral Note (in 4-6 weeks) Sanjay Simpson MD [Primary Care Provider] - Within 2 Weeks Disposition Disposition (needs filled in before D/C Order can be placed): Home, Self Care Charges/Coding Visit Charges Inpatient E&M: 22803 Disch Hosp
[2021-07-17 19:21] LABS: Bedside Glucose 397 mg/dL (70-110)
[2021-07-20 10:33] LABS: Bedside Glucose > 500 mg/dL (70-110)
[2021-07-20 12:35] LABS: Pathologist Review Reviewed
[2021-07-20 13:52] LABS: Bedside Glucose 456 mg/dL (70-110)
--- NOTE | 2021-07-20 15:07 | CASEMGMT ---
FARZANEH KIM Discharge Follow-up Phone Call: LEÓN: Erum Strata: 2 Call Date: 07/20/21 Discharge Date:07/17/21 Time of Call: 1505 Admitting Diagnosis: COVID-19 This FARZANEH KIM contacted pt via phone for discharge follow-up. Pt states he has been doing well since discharge. Pt reports PO to be 96% at rest on O2 and decreases to 86% with exertion but states he recovers back to greater than 90 quickly. Pt reports to have picked up his prescriptions and taking as directed. Pt states he has made his follow-up appointments with Dr. Albrecht and his PCP. Pt also reports to be trying to follow all the rules. Pt denies any questions or concerns at this time. Matheus Rios RN CM
== END 2021-07-17 20:45 | disposition home or self-care (01) | DRG 177 ==
LOC: ED 19:19 → ICU 19:50 → PCU 07-17 10:09
PROVIDERS: Internal Medicine; Internal Medicine Critical Care Medicine; Nurse Practitioner Family; Admitting Provider Family Medicine; Emergency Provider Emergency Medicine; PCP Family Medicine; Visit Provider Internal Medicine
DX: U07.1 COVID-19 (principal); E11.10 Type 2 diabetes mellitus with ketoacidosis without coma; J12.82 Pneumonia due to coronavirus disease 2019; J96.01 Acute respiratory failure with hypoxia; I26.99 Other pulmonary embolism without acute cor pulmonale; E87.1 Hypo-osmolality and hyponatremia; N17.9 Acute kidney failure, unspecified; Z79.4 Long term (current) use of insulin; Z87.891 Personal history of nicotine dependence; E66.9 Obesity, unspecified; Z68.32 Body mass index [BMI] 32.0-32.9, adult; I10 Essential (primary) hypertension; Z79.899 Other long term (current) drug therapy; K21.9 Gastro-esophageal reflux disease without esophagitis; E87.6 Hypokalemia; E83.42 Hypomagnesemia
CPT/HCPCS: 71045; 71275; 80048; 80053; 80202; 81001; 82009; 82728; 82962; 83036; 83605; 83615; 83735; 83880; 84100; 84145; 84484; 85025; 85027; 85379; 86140; 86850; 86900; 86901; 87040; 87070; 87205; 87449; 87633; 87641; 93005; 94002; 94003; 94660; 94667; 97110; 97162; 97166; 97530; 97535; 97803; 99251; 99285; J7030; J7040; J7050; J7120; Q9967; A4216; G0463; J1940; J2405

== ENCOUNTER → 2021-09-16 13:04 | Outpatient (CLI) | payer BC, SELFPAY ==
[2021-09-16 13:21] VITALS: PULSE 102; PULSE 104; PULSE 105; PULSE 106; PULSE 96; PULSE 97; O2SAT 92; O2SAT 93; O2SAT 96; O2SAT 97; O2SAT 98
--- NOTE | 2021-09-17 13:19 | WT_ITS ---
PSN 6 Minute Walk Test 6 Minute Walk Test 6 Minute Walk Test: 6 Minute Walk Test PSN:6-Minute Walk Test Start: 09/16/21 13:21 Freq: Status: Active Protocol: [id number] Document 09/16/21 13:21 EVANGELIST (Rec: 09/16/21 13:24 EVANGELIST [id number]) 6 Minute Walk Test Date Performed 09/16/21 Time Performed 13:10 Height 6 ft Weight: 108.862 kg Weight in Pounds 240.[address]: Sheree Leung [employer] Assistive device used: None Pre-test Oxygen Delivery Method Room Air Pulse Ox (%) 97 Pulse Rate (60-100 beats/min) 96 Dyspnea Chito Scale (0-10) 0.5 Exertion [place] Scale (6-20) 6 1st minute Oxygen Delivery Method Room Air Pulse Ox (%) 96 Pulse Rate (60-100 beats/min) 104 H 2nd minute Oxygen Delivery Method Room Air Pulse Ox (%) 93 Pulse Rate (60-100 beats/min) 96 3rd minute Oxygen Delivery Method Room Air Pulse Ox (%) 92 Pulse Rate (60-100 beats/min) 102 H 4th minute Oxygen Delivery Method Room Air Pulse Ox (%) 92 Pulse Rate (60-100 beats/min) 105 H 5th minute Oxygen Delivery Method Room Air Pulse Ox (%) 92 Pulse Rate (60-100 beats/min) 106 H 6th minute Oxygen Delivery Method Room Air Pulse Ox (%) 92 Pulse Rate (60-100 beats/min) 106 H Dyspnea Chito Scale (0-10) 3 Exertion [place]ito Scale (6-20) 12 Post-test Oxygen Delivery Method Room Air Pulse Ox (%) 98 Pulse Rate (60-100 beats/min) 97 Full Laps Walked 18 Partial Lap, Number of Tiles Walked 20 Total Distance Walked (ft) 1082 Interpretation Interpretation: The patient ambulated 1082 feet over the course of 6 minutes beginning on room air without assistive devices. Pretesting oxygen saturation was noted to be 97% on room air. With ambulation, the ivan oxygen saturation was 92%. This represents a significant exertional oxygen desaturation. Recommendations Recommendations: There is no indication for the use of supplemental oxygen at this time. However, close interval follow-up is recommended, given the degree of oxygen desaturation noted during the study.
== END ==
PROVIDERS: PCP Family Medicine; Referring Provider Nurse Practitioner Acute Care; Visit Provider Nurse Practitioner Acute Care
DX: J96.01 Acute respiratory failure with hypoxia (principal)
CPT/HCPCS: 94618